=== PATIENT | male | born 1955 | race Caucasian/White ===

== ENCOUNTER 2017-02-08 08:51 | Inpatient (IN) | payer OTHER ==
[2017-01-27 08:54] VITALS: BMI 34.0
--- NOTE | 2017-01-27 09:19 | PAT Medication Instructions ---
Service Date Jan 27, 2017. Current Home Medication List Amlodipine (Norvasc), 2.5 MG PO QAM Hctz/Lisinopril (Lisinopril/Hctz 10/12.5 Mg), 1 TAB PO QAM Multivitamin (Multivitamin), 1 TAB PO QAM Omeprazole (Prilosec), 40 MG PO QAM Prednisolone Acetate (Ophth) (Prednisolone Acetate), 1 DROP OP QAM Medication Instructions For Your Scheduled Surgery - Hold the following medications the morning of surgery: Hctz/Lisinopril (Lisinopril/Hctz 10/12.5 Mg), 1 TAB PO QAM Multivitamin (Multivitamin), 1 TAB PO QAM - Take the following medications the morning of surgery with a sip of water OTHERWISE NOTHING TO EAT OR DRINK AFTER MIDNIGHT:: Amlodipine (Norvasc), 2.5 MG PO QAM Omeprazole (Prilosec), 40 MG PO QAM Prednisolone Acetate (Ophth) (Prednisolone Acetate), 1 DROP OP QAM If you have any questions please call us at [phone] or [phone] or [phone]
[2017-01-27 10:12] LABS: BASO % 0.3 %; BASO ABS # 0.02 K/uL (0-0.2); COMPLETE YES; EOS % 3.1 %; HEMATOCRIT 41.3 % (42-52); IG% 0.3 %; LYMPH % 34.1 %; LYMPH ABS # 2.22 K/uL (1.2-3.4); MEAN CELL VOLUME 89.6 fL (80-100); MEAN CORPUSCULAR HEMOGLOBIN 30.4 pg (25-34); MEAN CORPUSCULAR HGB CONC 33.9 g/dl (32-36); MEAN PLATELET VOLUME 10.8 fL (7.4-10.4); MONO % 9.5 %; NEUT % 52.7 %; PLATELET COUNT 225 K/uL (130-400); RED BLOOD COUNT 4.61 M/uL (4.7-6.1); WHITE BLOOD COUNT 6.51 K/uL (4.8-10.8)
--- NOTE | 2017-01-27 10:14 | DIAGNOSTIC IMAGING REPORT ---
CHEST PREADMISSION(PA/LAT) CLINICAL HISTORY: Preoperative chest COMPARISON STUDY: 02/16/2014 FINDINGS: The cardiac and mediastinal contours are normal. There is no evidence of focal pulmonary consolidation. There is no evidence of failure. No pleural effusions are visualized.[ IMPRESSION: No active disease in the chest. Electronically signed by: Daryn Merlos M.D. 01/27/2017 10:13 AM Dictated Date/Time: 01/27/2017 10:13 AM
[2017-01-27 10:15] LABS: URINE APPEARANCE CLEAR (CLEAR); URINE BILIRUBIN NEG (NEG); URINE COLOR DK YELLOW; URINE NITRITE NEG (NEG); URINE PH 6.5 (4.5-7.5); URINE SPECIFIC GRAVITY 1.023 (1.000-1.030); UROBILINOGEN NEG (NEG)
[2017-01-27 10:18] LABS: MANUAL MICROSCOPIC REQUIRED? NO; REVIEW REQ? NO
[2017-01-27 10:36] LABS: BUN/CREATININE RATIO 18.6 (10-20); CALCIUM 9.3 mg/dl (8.5-10.1); POTASSIUM 3.9 mmol/L (3.5-5.1)
[~2017-02-08] VITALS: Ht 177.8 cm; Wt 106.8 kg
[2017-02-08] VITALS (9 sets, daily range): BP systolic 115–146; BP diastolic 56–83; PULSE 58–91; TEMP 36.1–37.2; O2SAT 91–98; Ht 177.8 cm; Wt 106.8 kg
--- NOTE | 2017-02-08 07:23 | History & Physical Bridge Note ---
H&P Re-Evaluation Bridge Note: I have examined the patient, reviewed the History & Physical and in the interval since the performance of the History & Physical I have noted the following changes of clinical significance: No changes noted
[~2017-02-08 08:51] MED LIST: AMLO2.5T PO; CEFAZOLIN 2000 MG/60 ML D5W IV SCH; LACTATED RINGER'S 1000ML 1,000 ML IV SCH; LSN/10125 PO; MULT-506 PO; OMEP40CA PO; PRED1SUS17 OP
--- NOTE | 2017-02-08 10:10 | History and Physical ---
History & Physical Date Feb 08, 2017. Chief Complaint back and leg pain History of Present Illness The patient is a 61 year old male with complaints of Past Medical/Surgical History Medical Problems: (1) Benign hypertension (2) Hyperlipidemia Nec/Nos (3) Shoulder Surgery (4) Tobacco Use Disorder Additional History Hepatic Disease: No Endocrine Disorder: No Kidney Disease: No Hypertension: No Heart Disease: No Bleeding Tendencies: No Infectious Diseases: No Allergies Coded Allergies: Acetaminophen (Unverified Adverse Reaction, Unknown, IRRITABLE, 02/08/17) PER RECORDS Hydrocodone (Unverified Adverse Reaction, Unknown, IRRITABLE, 02/08/17) PER RECORDS Home Medications Scheduled Amlodipine (Norvasc), 2.5 MG PO QAM Hctz/Lisinopril (Lisinopril/Hctz 10/12.5 Mg), 1 TAB PO QAM Multivitamin (Multivitamin), 1 TAB PO QAM Omeprazole (Prilosec), 40 MG PO QAM Prednisolone Acetate (Ophth) (Prednisolone Acetate), 1 DROP OP QAM Physical Examination Skin: warm/dry, no rash Eyes: normal inspection, EOMI, sclerae normal ENT: normal ENT inspection, pharynx normal Head: normocephalic, atraumatic Neck: supple, no adenopathy, trachea midline Respiratory/Chest: lungs clear, normal breath sounds, no respiratory distress Cardiovascular: regular rate, rhythm, no edema, no murmur Abdomen / GI: normal bowel sounds, non tender Back: normal inspection Extremities: normal inspection, normal range of motion Neurologic/Psych: no motor/sensory deficits, alert, normal reflexes, oriented x 3 Diagnosis spondylolysis/stenosis Plan of Treatment decompression fusion L4-S1
[2017-02-08] MEDS ORDERED: MIDAZOLAM HCL 1 MG/ML 2ML VIAL ONE (10:30)
[2017-02-08] MEDS ORDERED: SODIUM CHLORIDE 0.9% PF 50 ML VIAL ONE (10:30)
[2017-02-08] MEDS ORDERED: BUPIVACAINE/EPINEPHRINE 0.5% MPF 1:200,000 30 ML VIAL ONE (10:30)
[2017-02-08] MEDS ORDERED: FENTANYL CITRATE INJ 50 MCG/1 ML 2 ML VIAL ONE ×3 (10:30→12:19)
[2017-02-08] MEDS ORDERED: BACITRACIN 50000 UNIT VIAL ONE (10:30)
[2017-02-08] MEDS ORDERED: HYDROmorphone INJ 2 MG/ML SYR/VIAL ONE ×2 (11:10→12:53)
[2017-02-08] MEDS ORDERED: PHENYLEPHRINE 100MCG/ML 5ML SYR IV PRN (11:15)
[2017-02-08] MEDS ORDERED: EpHEDrine SULFATE INJ 50 MG/ML AMP IV PRN (11:15)
[2017-02-08] MEDS ORDERED: LABETALOL HCL IV 5 MG/ML 20ML IV PRN (11:15)
[2017-02-08] MEDS ORDERED: MEPERIDINE HCL 25 MG/ML CARP IV PRN (11:15)
[2017-02-08] MEDS ORDERED: NALOXONE HCL 0.4 MG/1 ML VIAL/CARP IV PRN ×3 (11:15→13:00)
[2017-02-08] MEDS ORDERED: FLUMAZENIL 0.1 MG/1 ML 10 ML VIAL IV PRN (11:15)
[2017-02-08] MEDS ORDERED: HYDROmorphone INJ 2 MG/ML SYR/VIAL IV PRN (11:15)
[2017-02-08] MEDS ORDERED: ATROPINE SULFATE 0.1 MG/ML 5ML SYR IV PRN (11:15)
[2017-02-08] MEDS ORDERED: ONDANSETRON INJ 2 MG/ML 2 ML VIAL IV PRN ×2 (11:15→13:00)
[2017-02-08] MEDS ORDERED: EpHEDrine SULFATE 50MG/5ML SYR ONE ×2 (11:45→12:29)
[2017-02-08] MEDS ORDERED: PROPOFOL IV EMULSION 10 MG/ML 20 ML VIAL IV ONE (12:29)
[2017-02-08] MEDS ORDERED: DEXAMETHASONE SOD INJ 4 MG/ML VIAL ONE (12:29)
[2017-02-08] MEDS ORDERED: LIDOCAINE HCL 2% 2 ML VIAL (20MG/ML) ONE (12:29)
[2017-02-08] MEDS ORDERED: ROCURONIUM BROMIDE 10 MG/ML 5 ML VIAL ONE (12:29)
[2017-02-08] MEDS ORDERED: FLOSEAL HEMOSTATIC MATRIX 10ML TOP ONE (12:45)
[2017-02-08] MEDS ORDERED: SODIUM CHLORIDE 0.9% 1000ML 1,000 ML IV SCH (12:49)
--- NOTE | 2017-02-08 12:49 | [facility] Post Operative Brief Note ---
Immediate Operative Summary Operative Date Feb 08, 2017. Pre-Operative Diagnosis Spondylolysis/stenosis Post-Operative Diagnosis Same as preoperative diagnosis Procedure(s) Performed L4-L5, L5-S1 Lumbar Decompression and posterior spinal fusion; instrumentation with use of bone morphogenetic protein. Interbody fusion with application of interbody cage at L5-S1. Surgeon Dr Anaya Buyer Broker Surgeon(s) Stacie Samaniego PA-C Estimated Blood Loss 150 Findings spondy/stenosis Specimens None per surgeon
[2017-02-08] MEDS ORDERED: GLYCOPYRROLATE INJ 0.2 MG/ML VIAL ONE (12:53)
[2017-02-08] MEDS ORDERED: ONDANSETRON INJ 2 MG/ML 2 ML VIAL ONE (12:53)
[2017-02-08] MEDS ORDERED: NEOSTIGMINE METHYLSULFATE 1 MG/ML 10ML VIAL ONE (12:53)
--- NOTE | 2017-02-08 12:54 | DIAGNOSTIC IMAGING REPORT ---
LUMBAR SPINE, INTRAOPERATIVE FLUOROSCOPY HISTORY: L4-S1 decompression and fusion. FLUOROSCOPY TIME: 17 seconds. FINDINGS: Intraoperative fluoroscopy was provided for the lumbar spine. 2 fluoroscopic spot images were obtained. Posterior decompression fusion from L4 through S1 with pedicle screws and rods. The hardware appears intact. IMPRESSION: Fluoroscopy provided for a L4-S1 posterior decompression and fusion. Electronically signed by: Hong Alfonso M.D. 02/08/2017 12:53 PM Dictated Date/Time: 02/08/2017 12:52 PM
[2017-02-08] MEDS ORDERED: HYDROmorphone HCL 0.5MG/ML 50 ML CASSETTE IV PRN (13:00)
[2017-02-08] MEDS ORDERED: hydrOXYzine HCL 25 MG TAB PO PRN (13:00)
[2017-02-08] MEDS ORDERED: DO NOT ADMINISTER PNEUMOCOCCAL VACCINE PRN ×2 (13:00)
[2017-02-08] MEDS ORDERED: BISACODYL 10 MG SUPP PR PRN (13:00)
[2017-02-08] MEDS ORDERED: FAMOTIDINE 20 MG TAB PO PRN (13:00)
[2017-02-08] MEDS ORDERED: LORAZEPAM 0.5 MG TAB PO PRN (13:00)
[2017-02-08] MEDS ORDERED: LORAZEPAM INJ 0.5 MG in SYRINGE 0 ML IV PRN (13:00)
[2017-02-08] MEDS ORDERED: METOCLOPRAMIDE HCL INJ 5 MG/ML 2 ML VIAL IV PRN (13:00)
[2017-02-08] MEDS ORDERED: ALUMINUM/MAGNESIUM SUSP 30 ML UDC PO PRN (13:00)
[2017-02-08] MEDS ORDERED: MAGNESIUM HYDROXIDE SUSP 30 ML UDC PO PRN (13:00)
[2017-02-08] MEDS ORDERED: DO NOT ADMINISTER FLU VACCINE PRN ×3 (13:00)
[2017-02-08] MEDS ORDERED: SOD PHOSPHATE/SOD BIPHOSPHATE ENEMA 132 ML BTL PR PRN (13:00)
[2017-02-08] MEDS ORDERED: HYDROmorphone HCL 0.5MG/ML 50 ML CASSETTE ONE (13:12)
[2017-02-08] MEDS: FENTANYL CITRATE INJ 50 MCG/1 ML 2 ML VIAL IV PRN ×4 (13:15→13:30)
--- NOTE | 2017-02-08 13:48 | Anesthesiology Progress Note ---
Anesthesia Post Op Note Date & Time Feb 08, 2017 at 13:48 Vital Signs Pain Intensity: 4 Vital Signs Past 12 Hours Date Time Temp Pulse Resp B/P Pulse Ox O2 Delivery O2 Flow Rate FiO2 02/08/17 13:40 36.6 67 14 127/75 100 Nasal Cannula 3 02/08/17 13:30 85 14 123/71 100 Mask 5 02/08/17 13:20 65 16 129/70 100 Mask 10 02/08/17 13:10 36.7 81 16 119/66 97 Mask 10 02/08/17 09:05 36.5 58 20 144/83 96 Room Air Notes Mental Status: alert / awake / arousable, participated in evaluation Pt Amnestic to Procedure: Yes Nausea / Vomiting: adequately controlled Pain: adequately controlled Airway Patency, RR, SpO2: stable & adequate BP & HR: stable & adequate Hydration State: stable & adequate Anesthetic Complications: no major complications apparent
[2017-02-08] MEDS: LACTATED RINGER'S 1000ML 1,000 ML IV SCH ×2 (14:00→19:23)
[2017-02-08] MEDS: DEXAMETHASONE INJ 6 MG in SYRINGE 0 ML IV SCH ×2 (16:04→23:36)
[2017-02-08] MEDS: CEFAZOLIN IV 2,000 MG in DEXTROSE 5% 50ML 50 ML IV SCH (18:27)
[2017-02-08] MEDS: DOCUSATE SODIUM/SENNA 50/8.6MG TAB PO SCH (20:38)
[2017-02-09] MEDS: CEFAZOLIN IV 2,000 MG in DEXTROSE 5% 50ML 50 ML IV SCH (01:55)
[2017-02-09] MEDS: LACTATED RINGER'S 1000ML 1,000 ML IV SCH (01:56)
[2017-02-09 03:23] VITALS: BP 118/65; PULSE 71; TEMP 36.8; O2SAT 94
[2017-02-09] MEDS ORDERED: DC PCA SCH (06:00)
[2017-02-09] MEDS ORDERED: PROMETHAZINE HCL INJ 12.5 MG in SODIUM CHLORIDE 0.9% 50ML 50 ML IV PRN (06:00)
[2017-02-09] MEDS ORDERED: HYDROmorphone INJ 1 MG/ML SYR IV PRN (06:00)
[2017-02-09 06:17] LABS: COMPLETE YES; HEMATOCRIT 34.7 % (42-52); IG% 0.2 %; LYMPH % 6.9 %; LYMPH ABS # 1.01 K/uL (1.2-3.4); MEAN CELL VOLUME 87.6 fL (80-100); MEAN CORPUSCULAR HEMOGLOBIN 29.8 pg (25-34); MEAN PLATELET VOLUME 10.7 fL (7.4-10.4); MONO % 3.9 %; PLATELET COUNT 199 K/uL (130-400); RED BLOOD COUNT 3.96 M/uL (4.7-6.1); WHITE BLOOD COUNT 14.68 K/uL (4.8-10.8)
[2017-02-09] MEDS ORDERED: NURSING DECISION MEDICATION ORDER SCH (06:45)
[2017-02-09 06:53] LABS: BUN/CREATININE RATIO 13.3 (10-20); CALCIUM 8.7 mg/dl (8.5-10.1); CREATININE 1.2 mg/dl (0.60-1.40); POTASSIUM 4.3 mmol/L (3.5-5.1)
[2017-02-09] MEDS: DEXAMETHASONE INJ 6 MG in SYRINGE 0 ML IV SCH (07:38)
[2017-02-09] MEDS: OXYCODONE HCL IR 5 MG TAB (IMMEDIATE RELEASE) PO PRN ×2 (07:38→11:52)
[2017-02-09 07:42] VITALS: BP 119/61; PULSE 79; TEMP 37.1; O2SAT 99
--- NOTE | 2017-02-09 08:40 | PROGRESS NOTE ---
DATE: 02/09/2017 Postop day 1. Back pain controlled. Leg pain improved. Vital signs stable. T max 37.1. LIONEL drained 120 mL. Hematocrit this a.m. is 34.7. On exam, the patient is in chair at bedside. Has good strength to testing. Appears comfortable. ASSESSMENT: Status post lumbar decompression and fusion. PLAN: At this time, we will initiate physical therapy, advance his bowel regimen, hopefully anticipate home this Monday or Monday.
[2017-02-09 09:41] VITALS: BP 119/61
[2017-02-09] MEDS: KETOROLAC TROMETHAMINE 30 MG/ML VIAL IV PRN ×2 (09:51→18:41)
[2017-02-09] MEDS: LISINOPRIL/HCTZ 10/12.5MG TAB PO SCH (09:52)
[2017-02-09] MEDS: PANTOprazole SOD 40 MG TAB PO SCH (09:52)
[2017-02-09] MEDS: AMLODIPINE BESYLATE 5 MG TAB PO SCH (09:53)
[2017-02-09] MEDS: PrednisoLONE ACET 1% OP SUSP 5 ML BTL OP SCH (09:53)
--- NOTE | 2017-02-09 10:35 | Anesthesiology Progress Note ---
Anesthesia Post Op Note Date & Time Feb 09, 2017 at 10:34 Vital Signs Vital Signs Past 12 Hours Date Time Temp Pulse Resp B/P Pulse Ox O2 Delivery O2 Flow Rate FiO2 02/09/17 07:50 Room Air CPAP 02/09/17 07:42 37.1 79 16 119/61 99 Room Air 02/09/17 03:23 36.8 71 16 118/65 94 Room Air 02/08/17 23:36 37.0 80 16 122/66 92 Room Air Notes Mental Status: alert / awake / arousable, participated in evaluation Pt Amnestic to Procedure: Yes Nausea / Vomiting: adequately controlled Pain: adequately controlled Airway Patency, RR, SpO2: stable & adequate BP & HR: stable & adequate Hydration State: stable & adequate Anesthetic Complications: no major complications apparent
[2017-02-09 15:19] VITALS: BP 130/71; PULSE 61; TEMP 36.8; O2SAT 93
[2017-02-09] MEDS: DOCUSATE SODIUM/SENNA 50/8.6MG TAB PO SCH (21:06)
[2017-02-09 23:30] VITALS: BP 131/70; PULSE 70; TEMP 36.5; O2SAT 96
[2017-02-10] MEDS: POLYETHYLENE (MIRALAX) 17 GM PACK PO SCH ×3 (06:04→17:52)
[2017-02-10] MEDS: OXYCODONE HCL IR 5 MG TAB (IMMEDIATE RELEASE) PO PRN ×2 (07:14→19:21)
[2017-02-10 07:36] VITALS: BP 134/80; PULSE 62; TEMP 36.7; O2SAT 95
[2017-02-10 08:43] VITALS: O2SAT 95
[2017-02-10] MEDS: KETOROLAC TROMETHAMINE 30 MG/ML VIAL IV PRN (08:51)
[2017-02-10] MEDS: PrednisoLONE ACET 1% OP SUSP 5 ML BTL OP SCH (08:54)
[2017-02-10] MEDS: AMLODIPINE BESYLATE 5 MG TAB PO SCH (08:55)
[2017-02-10] MEDS: LISINOPRIL/HCTZ 10/12.5MG TAB PO SCH (08:55)
[2017-02-10] MEDS: PANTOprazole SOD 40 MG TAB PO SCH (08:55)
[2017-02-10] MEDS ORDERED: RXC5 PO (10:38)
--- NOTE | 2017-02-10 10:39 | Discharge Instructions ---
Discharge Instructions Date of Service Feb 10, 2017. Admission Reason for Admission: Lumbar Spinal Stenosis Discharge Discharge Diagnosis / Problem: lumbar stenosis Discharge Goals Goal(s): Improve function Activity Recommendations Activity Limitations: per Instructions/Follow-up section . Instructions / Follow-Up Instructions / Follow-Up ACTIVITY RECOMMENDATIONS: SELF CARE INSTRUCTIONS AFTER THORACIC/LUMBAR FUSIONS 1. You may walk to your tolerance. It is good exercise for your legs and back. Expect some back and intermittent leg aches and pains. 2. You may perform "counter-top" level activities (make a sandwich, clarice with a project, etc.). 3. No bending or lifting of more than 10 pounds or back twisting of any nature (roll like a log when turning in bed). 4. You may ride in a car for 20-30 minutes at a time. No driving until after your first visit with your doctor. 5. Frequent changes of position and restricting sitting to 30 minutes at a time will help limit the amount of back spasms and stiffness you may experience. 6. You may discontinue the use of ambulatory aids (cane, crutches, etc.) once your strength and confidence allow. 7. You may divine healer the shower and let water strike your incision when you arrive home at least once daily. Do not take a tub bath, sit in a hot tub or go into a swimming pool until after your first recheck in the office. SPECIAL CARE INSTRUCTIONS: VERY IMPORTANT TO READ AND REVIEW A. Your surgical incision has been closed with a cosmetic suture under the skin that will dissolve in about 6 weeks. In 14 days, you can use a pair of clean scissors and cut the suture that is left outside of the skin at the ends of your incision. 1. The small skin tapes can be removed 7 days after surgery if they have not fallen off by that point. 2. You may keep the wound open to air as much as possible to promote healing after post-op day number 5 unless told otherwise by your doctor. 3. If you think the wound looks like it is becoming infected (redness or worsening drainage) and/or you are experiencing fever, chill or worsening back pain and muscle spasms, contact the office so that we may evaluate you as soon as possible. B. Complications are uncommon, but please contact us if you have any signs or symptoms of: 1. wound infection (fever higher than 102.5 degrees F, redness, separation of wound, drainage, or increasing pain from the incision) 2. blood clots in legs (pain, swelling, redness and warmth in legs) 3. urinary tract infection (fever higher than 102.5 degrees F, burning upon urination or increased frequency of urination) 4. nerve problems (inability to walk on your toes or heels, numbness, loss of bowel or bladder control) 5. any other symptoms that concern you C. Please call the office at if you have any concerns or questions about your operation or recovery. D. No smoking! Smoking drastically decreases the chance of a solid fusion. E. Do not take any anti-inflammatory medications (Indocin, Advil, Motrin, Aspirin, Naprosyn, etc.) as these may inhibit the chance of a solid fusion. Tylenol is okay to take for pain. MANAGING PAIN AFTER SPINAL SURGERY 1. Narcotic medication is intended for short-term use and will be provided for surgical pain. Surgical pain usually lasts for a period of 4-6 weeks. Narcotic medication includes Percocet, Vicodin, Darvocet, Tylenol #3 or Lortab. 2. Longer-term pain is more appropriately treated with non-narcotic medication such as Tylenol ES. 3. Muscle spasm is not appropriately treated with narcotics. Muscle relaxers such as Soma, Flexeril or Skelaxin can be used along with Tylenol ES. 4. Remember that we all live with some "aches and pains". This is not unusual or uncommon after an injury or as we get older. a. Back pain is expected and may include muscle spasms for 4 to 6 weeks after surgery. The pain should gradually improve. If the pain worsens for no apparent reason, please contact the office. b. Intermittent leg pain may also be experienced and should not be concerned about unless it worsens for no apparent reason. If so, please contact the office. 5. We will provide appropriate medication within the normal guidelines of their prescribed use. We will also be very cautious and aware of potential abuse and extended duration of patients' medication needs. a. Pain medications are for your comfort and to assist with sleep and rest so that the tissue can heal. They are not provided in order to return to normal activity and should not be used through the day. To do so or worsening pain at night can result from ongoing tissue damage and development of tolerance to the prescribed medicine. 6. Please allow 2-3 days to process refills. Prescriptions will not be mailed but must be picked up at the office. FOLLOW UP VISIT: Keep your scheduled follow-up appointment. Any questions, please call the office at . Current Hospital Diet Patient's current hospital diet: Regular Diet Discharge Diet Recommended Diet: Regular Diet Procedures Procedures Performed: L4-L5, L5-S1 Lumbar Decompression and posterior spinal fusion; instrumentation with use of bone morphogenetic protein. Interbody fusion with application of interbody cage at L5-S1. Pending Studies Studies pending at discharge: no Medical Emergencies . Who to Call and When: Medical Emergencies: If at any time you feel your situation is an emergency, please call 911 immediately. . Non-Emergent Contact Non-Emergency issues call your: Primary Care Provider . "Provider Documentation" section prepared by Yoni Anaya. VTE Core Measure Inpt VTE Proph given/why not?: Elena Moses, [facility]
[2017-02-10 11:29] VITALS: BP 130/68; PULSE 52; TEMP 36.7; O2SAT 95
--- NOTE | 2017-02-10 14:19 | PROGRESS NOTE ---
DATE: 02/10/2017 Postop day #2. Back pain controlled. Leg pain improved. Vital signs stable. T-max 36.7. LIONEL drained 140 mL today. Bowel movement this morning. PHYSICAL EXAMINATION: VITAL SIGNS: Stable. He is comfortable, sitting in bed, has excellent strength to testing. ASSESSMENT: Status post lumbar decompression and fusion. PLAN: At this time, we will maintain the LIONEL drain today. Anticipate home tomorrow.
[2017-02-10 15:33] VITALS: BP 123/62; PULSE 57; TEMP 36.7; O2SAT 97
[2017-02-10] MEDS: DOCUSATE SODIUM/SENNA 50/8.6MG TAB PO SCH (20:43)
[2017-02-10 23:37] VITALS: BP 117/67; PULSE 58; TEMP 37.1; O2SAT 96
[2017-02-11] MEDS: POLYETHYLENE (MIRALAX) 17 GM PACK PO SCH ×2 (00:22→05:46)
[2017-02-11] MEDS: OXYCODONE HCL IR 5 MG TAB (IMMEDIATE RELEASE) PO PRN ×3 (00:22→10:26)
[2017-02-11 07:26] VITALS: BP 102/55; PULSE 56; TEMP 36.7; O2SAT 95
[2017-02-11] MEDS: AMLODIPINE BESYLATE 5 MG TAB PO SCH (08:30)
[2017-02-11] MEDS: PrednisoLONE ACET 1% OP SUSP 5 ML BTL OP SCH (08:30)
[2017-02-11] MEDS: PANTOprazole SOD 40 MG TAB PO SCH (08:31)
[2017-02-11] MEDS: LISINOPRIL/HCTZ 10/12.5MG TAB PO SCH (08:31)
--- NOTE | 2017-02-11 10:28 | DISCHARGE SUMMARY ---
DATE OF DISCHARGE: 02/11/2017. PRINCIPAL DIAGNOSIS: Spinal stenosis. HOSPITAL COURSE FOLLOWS: On February 08 the patient underwent lumbar decompression and fusion, tolerated this well and taken to the orthopedic floor postoperatively. Postop day #1, he was up and ambulatory, progressed to postop day #2. Postop day #3 pain well controlled. LIONEL drain decreased appropriately. Subsequently discharged home. Discharge orders and instructions can be found on the chart for further review.
[2017-02-11 11:59] VITALS: BP 102/55; PULSE 56; TEMP 36.7; O2SAT 95
--- NOTE | 2017-03-03 09:08 | OPERATIVE REPORT ---
DATE OF OPERATION: 02/08/2017 PREOPERATIVE DIAGNOSIS: Spinal stenosis. POSTOPERATIVE DIAGNOSIS: Same. PROCEDURE PERFORMED: 1. Lumbar decompression, medial facetectomy and foraminotomy L4-L5, L5-S1. 2. Posterior spinal fusion L4-L5, L5-S1. 3. Placement of posterior segmental instrumentation using Orthros rods and screws L4-L5, L5-S1. 4. Interbody fusion L5-S1. 5. Placement of PEEK cage L5-S1. 6. Placement of locally harvested morcellized autograft in posterior gutters. 7. Placement of Infuse collagen sponge combined with Mastergraft in posterior gutters and Marissa bone grafting in interbody space. SURGEON: Dr. Yoni Anaya. ENTRY LEVEL ASSISTANT MANAGER: EMELIA Williamson. Due to the complex nature of the procedure, the entire surgery was performed with the fleet administrative assistant of EMELIA Williamson. The photographer's assistant, under direct supervision, was involved in the actual performance of all aspects of the surgical procedure including hemostasis, tissue retraction and incision, instrument management, patient positioning, and wound closure. ANESTHESIA: General. DISPOSITION: The patient awakened and taken to PACU in stable condition. HISTORY OF PATIENT'S PROBLEMS: This is a 61-year-old male well known to me, that presents with the above-mentioned diagnosis. After failing an extensive course of nonoperative care, elected to undergo the above-mentioned procedure. Risks, benefits, pros, cons, and alternatives were outlined in detail preoperatively. DESCRIPTION OF PROCEDURE: The patient was met with preoperatively. The case was discussed and all questions were addressed. At that point, the patient was taken back to the operative suite, and after undergoing successful general intubation by the department of anesthesia, was placed in prone position on Karson table atop Tristen frame. All bony prominences were well padded and the eyes were inspected to ensure there was no external pressure placed upon them. At this point, the lumbar spine was prepped and draped in normal sterile fashion. Sharp dissection with the assistance of Bovie cautery performed down to and exposing the lamina and transverse processes of L4, L5 and sacral ala bilaterally. Obvious pars defect and spondylolisthesis at L5-S1 appreciated. A complete laminectomy of L5 and L4 performed addressing significant stenosis. Pedicle screws were then placed in L4, L5 and S1 levels bilaterally with assistance of fluoroscopy and appropriately sized adan provisionally placed. Through a transforaminal approach, a complete discectomy was performed, endplates curetted to subcortical bleeding bone, and a PEEK cage filled with Marissa bone grafting tapped into position. The rods were then compressed, locked into final position bilaterally, and transverse processes of L4, L5 and sacral ala burred to subcortical bleeding bone. Infuse collagen sponge combined with Mastergraft and locally harvested morcellized autograft was placed in the posterior gutters. A 7 flat LIONEL drain was inserted. Incision was closed with 1-0 Vicryl in the fascia, 2-0 Vicryl subcutaneously, 4-0 Monocryl for final skin closure. Steri-Strips and sterile dressing placed. The patient was awakened and taken to PACU in stable condition. I attest to the content of the Intraoperative Record and any orders documented therein. Any exceptio ns are noted below.
== END 2017-02-11 13:41 | disposition home health service (06) | DRG 460 ==
LOC: ENRESERVDT → ENRESERVTM → C.ACU 08:51 → C.3E 09:30
PROVIDERS: ADMIT Orthopaedic Surgery Orthopaedic Surgery of the Spine; ATTEND Orthopaedic Surgery Orthopaedic Surgery of the Spine
PROC: 0SG30AJ Fusion of Lumbosacral Joint with Interbody Fusion Device, Posterior Approach, Anterior Column, Open Approach (ICD-10-PCS; principal; 2017-02-08 10:45)
PROC: 0SG3071 Fusion of Lumbosacral Joint with Autologous Tissue Substitute, Posterior Approach, Posterior Column, Open Approach (ICD-10-PCS; principal; 2017-02-08 10:45)
PROC: 0SG00AJ Fusion of Lumbar Vertebral Joint with Interbody Fusion Device, Posterior Approach, Anterior Column, Open Approach (ICD-10-PCS; principal; 2017-02-08 10:45)
PROC: 0ST20ZZ Resection of Lumbar Vertebral Disc, Open Approach (ICD-10-PCS; principal; 2017-02-08 10:45)
PROC: 0SG0071 Fusion of Lumbar Vertebral Joint with Autologous Tissue Substitute, Posterior Approach, Posterior Column, Open Approach (ICD-10-PCS; principal; 2017-02-08 10:45)
PROC: 0ST40ZZ Resection of Lumbosacral Disc, Open Approach (ICD-10-PCS; principal; 2017-02-08 10:45)
PROC: 3E0V0GB Introduction of Recombinant Bone Morphogenetic Protein into Bones, Open Approach (ICD-10-PCS; principal; 2017-02-08 10:45)
DX: M48.07 Spinal stenosis, lumbosacral region (principal); M43.07 Spondylolysis, lumbosacral region; M99.73 Connective tissue and disc stenosis of intervertebral foramina of lumbar region; I10 Essential (primary) hypertension; E78.5 Hyperlipidemia, unspecified; F17.200 Nicotine dependence, unspecified, uncomplicated; Z79.899 Other long term (current) drug therapy

== ENCOUNTER → 2017-06-14 | Outpatient (CLI) | payer OTHER ==
[~2017-06-14] MED LIST changes: -CEFAZOLIN 2000 MG/60 ML D5W IV SCH; -LACTATED RINGER'S 1000ML 1,000 ML IV SCH; +RXC5 PO
[2017-06-14 17:04] LABS: BASO % 0.4 %; BASO ABS # 0.02 K/uL (0-0.2); COMPLETE YES; EOS % 2.3 %; HEMATOCRIT 41.5 % (42-52); IG% 0.2 %; LYMPH % 32.8 %; LYMPH ABS # 1.71 K/uL (1.2-3.4); MEAN CELL VOLUME 88.5 fL (80-100); MEAN CORPUSCULAR HEMOGLOBIN 29.9 pg (25-34); MEAN CORPUSCULAR HGB CONC 33.7 g/dl (32-36); MEAN PLATELET VOLUME 10.9 fL (7.4-10.4); MONO % 9.4 %; NEUT % 54.9 %; PLATELET COUNT 230 K/uL (130-400); RED BLOOD COUNT 4.69 M/uL (4.7-6.1); WHITE BLOOD COUNT 5.22 K/uL (4.8-10.8)
[2017-06-14 17:28] LABS: ALT/SGPT 29 U/L (12-78); AST/SGOT 15 U/L (15-37); BLOOD UREA NITROGEN 18 mg/dl (7-18); BUN/CREATININE RATIO 18.5 (10-20); CALCIUM 9.7 mg/dl (8.5-10.1); CARBON DIOXIDE 33 mmol/L (21-32); CHLORIDE 105 mmol/L (98-107); CREATININE 0.99 mg/dl (0.60-1.40); GLUCOSE 91 mg/dl (70-99); POTASSIUM 4.4 mmol/L (3.5-5.1); SODIUM 142 mmol/L (136-145)
[2017-06-14 17:31] LABS: ALB/GLOB RATIO 1.2 (0.9-2); ALKALINE PHOSPHATASE 67 U/L (45-117)
[2017-06-14 18:46] LABS: LYME DISEASE AB IGM NEG (NEG)
[2017-06-14 18:49] LABS: LYME DISEASE AB IGG NEG (NEG)
== END | disposition home or self-care (01) ==
LOC: C.LABBC 12:51
PROVIDERS: ATTEND Physician Assistant
DX: H53.8 Other visual disturbances (principal)

== ENCOUNTER → 2017-06-23 | Outpatient (CLI) | payer OTHER ==
--- NOTE | 2017-06-23 09:33 | DIAGNOSTIC IMAGING REPORT ---
HEAD WITHOUT CONTRAST (CT) CLINICAL HISTORY: 61 years-old Male presenting with BLURRED Vision, dizziness. TECHNIQUE: Multidetector CT imaging of the head was performed without the use of intravenous contrast. IV contrast: None. A dose lowering technique was used consistent with the principles of ALARA (as low as reasonably achievable). COMPARISON: 12/10/2012. CT DOSE (mGy.cm): The estimated cumulative dose is 669.45 mGycm. FINDINGS: Marking Devices Assembler topogram: Unremarkable. Ventricles and sulci normal in size. Brain parenchyma normal in appearance with preserved moore-white differentiation. No mass effect or midline shift. No hemorrhage or acute territorial infarct. No extra-axial fluid collection. Paranasal sinuses and mastoid air cells clear. Calvarium intact. IMPRESSION: 1. No acute intracranial pathology. Electronically signed by: Michael Schneider M.D. 06/23/2017 9:32 AM Dictated Date/Time: 06/23/2017 9:30 AM
== END | disposition home or self-care (01) ==
LOC: C.CTS 09:09
PROVIDERS: ATTEND Physician Assistant
DX: R42 Dizziness and giddiness (principal)

== ENCOUNTER → 2018-02-20 | Outpatient (CLI) | payer OTHER ==
--- NOTE | 2018-02-20 15:43 | DIAGNOSTIC IMAGING REPORT ---
MRI OF THE LEFT KNEE CLINICAL HISTORY: Left knee pain. COMPARISON STUDY: Radiographs of left knee dated 03/11/2014. TECHNIQUE: MRI of the left knee was performed utilizing proton density, T1, and T2-weighted sequences in the axial, sagittal, coronal planes. IV contrast was not administered for this examination. Note that interpretation is suboptimal without current plain film correlate. FINDINGS: Menisci: There is a complex oblique tear involving the body and posterior horn of the medial meniscus. The meniscus is medially extruded. No flipped fragment is identified. The lateral meniscus is intact. Ligaments: The anterior and posterior cruciate ligaments are intact. The medial and lateral collateral ligaments are within normal limits. Extensor mechanism: The extensor mechanism is intact. Hoffa's fat pad is normal in appearance. Articular cartilage and bone: There is less than 50% fissuring of the articular cartilage at the patellar apex. There is diffuse thinning of the articular cartilage in the medial compartment with small foci of greater than 50% fissuring along the weightbearing surface. Reactive marrow edema seen in the medial tibial plateau. Only mild cartilaginous thinning is seen in the lateral compartment. There is no MRI evidence of fracture. Tiny marginal osteophytes are noted. Joint effusion: There is a moderate joint effusion. Soft tissues: The musculature surrounding the knee joint is normal in bulk and signal intensity. IMPRESSION: 1. There is complex tearing involving the body and posterior horn of the medial meniscus which is medially extruded. 2. The cruciate ligaments, the lateral meniscus, and the collateral ligaments appear intact. 3. Mild arthritic change as above, greatest in the medial compartment where there is reactive marrow edema in the medial tibial plateau. 4. Moderate joint effusion. Electronically signed by: Ozzie Ayala M.D. 02/20/2018 3:42 PM Dictated Date/Time: 02/20/2018 3:35 PM
== END | disposition home or self-care (01) ==
LOC: C.MRIBC 14:19
PROVIDERS: ATTEND Internal Medicine
DX: M70.50 Other bursitis of knee, unspecified knee (principal); S83.232A Complex tear of medial meniscus, current injury, left knee, initial encounter; X58.XXXA Exposure to other specified factors, initial encounter; M25.462 Effusion, left knee

== ENCOUNTER 2019-12-01 16:05 | Observation (INO) ==
--- NOTE | 2019-12-01 16:29 | Emergency Department Note ---
Entered by Marco Ken acting as a scribe for Teddy Humphries MD History of Present Illness General Chief complaint: Chest Pain Stated complaint: CHEST PAIN Time Seen by Provider: 12/01/19 16:10 Source: patient Limitations: no limitations History of Present Illness Onset (ago): hour(s) (hour) Location: chest Pain Consistency: + intermittent Quality: + sharp Relieved By: + medication (nitro) and + rest Exacerbated By: + movement Associated symptoms: + denies other symptoms (trauma), + headaches, + nausea/vomiting (nausea) and + other (neck pain, left arm numbness) Treatments prior to arrival: other (nitro) The patient is a 64 year old male who presents to the Emergency Room with complaints of intermittent chest pain starting an hour ago. He states he was sitting on the couch when he bent over to tie his shoe laces. He states when he bent over he started to get a sharp pain in his chest. He notes his pain is worse with movement. He states he started to get numbness in his left arm first and then got pain in his neck. He states he then got a headache. He notes he received Nitro by EMS and states that relieved some of his chest pain but worsened his headache. He states his chest pain is relieved by rest. He states he has a headache right now and his neck is sore. He states he is starting to feel nauseous. He states he sees Dr. Lou, cardiology, for his aortic root dilation. The patient denies trauma, injury, and taking blood thinners. He states he has been under a lot of stress from taking care of his for the pa st couple months. He states he had back surgery before and his lower back has been bothering him. Home Medications Home Medications Medication Instructions Recorded Confirmed Type lisinopril 10 1 tab PO DAILY #90 tab 06/14/19 12/01/19 Rx mg-hydrochlorothiazide 12.5 mg tablet amlodipine 2.5 mg tablet 2.5 mg PO QPM #30 tab 09/13/19 12/01/19 History atorvastatin 10 mg tablet 10 mg PO DAILY tab 09/13/19 12/01/19 History clonazepam 0.5 mg tablet 0.5 mg PO QPM PRN tab 09/13/19 12/01/19 History multivitamin 1 tab PO DAILY 09/13/19 12/01/19 History benzonatate 200 mg capsule 200 mg PO TID PRN #30 cap 09/24/19 12/01/19 Rx fluticasone propionate 50 1 sprays INTNAS UD 10/08/19 12/01/19 History mcg/actuation nasal spray,suspension escitalopram oxalate 20 mg tablet 20 mg PO DAILY #90 tab 10/16/19 12/01/19 Rx bupropion HCl 150 mg tablet,12 hr 150 mg PO BID #180 ea 10/29/19 12/01/19 Rx sustained-release Allergies Allergy/AdvReac Type Severity Reaction Status Date / Time acetaminophen AdvReac Unknown IRRITABLE Verified 12/01/19 17:08 hydrocodone AdvReac Unknown IRRITABLE Verified 12/01/19 17:08 Past Med/Surg History Medical History Anxiety Aortic root dilation (Chronic) Depression HTN (hypertension) (Chronic) Hyperlipidemia (Chronic) Moderate obstructive sleep apnea (Chronic) PTSD (post-traumatic stress disorder) Reactive depression (situational) (Chronic) Smokeless tobacco use (Chronic) Spinal stenosis (Chronic) Surgical History History of back surgery Family History (Updated 12/01/19 @ 19:04 by Rissa Parra DO) Mother Myocardial infarction Brother Myocardial infarction Social History (Updated 12/01/19 @ 19:04 by Rissa Parra DO) Preferred Language: Marshallese Communication Ability: Effective Visual Impairment: No Limitations Hearing Ability: Use of Hearing Aid Latent Print Examiner Required: No Beliefs That Will Affect Care: None marital status: Current Living Situation: Spouse current occupational status: retired Feels Safe at Home: Yes Smoking Status: Former smoker Tobacco Type: smokeless tobacco ; Second Hand Exposure: No ; Hx Alcohol Use: Yes Alcohol type: beer Alcohol Intake Frequency: Holidays/Special Occasions Alcohol Intake Frequency Comment: once every 1-2 weeks Hx Substance Use: No Childhood Exposure to Second-Hand Smoke: No Dental Care, Regularly: Yes Physical Activity Frequency: Daily Seatbelt Use: always Sunscreen Use: No Review of Systems See HPI for pertinent positives & negatives. and A total of 10 systems reviewed and were otherwise negative Physical Exam Vital Signs Vital Signs - 24 hr 12/01/19 16:21 12/01/19 16:27 12/01/19 16:30 Temperature 36.8 C Temperature Source Oral Pulse Rate 62 68 Pulse Rate from SpO2 Sensor 66 Respiratory Rate 18 21 Blood Pressure 102/73 167/99 H Blood Pressure Mean 82 116 Pulse Oximetry 98 98 99 Sepsis Recent Fever Within 48 Hours No Sepsis New/Unexplained Change in Mental Status No Sepsis Action Taken by Nursing No Action Required 12/01/19 16:40 12/01/19 16:59 12/01/19 17:00 Temperature Temperature Source Pulse Rate 59 L 61 Pulse Rate from SpO2 Sensor 58 L 62 Respiratory Rate 11 L 13 Blood Pressure 178/164 H 140/87 142/86 H Blood Pressure Mean 173 102 108 Pulse Oximetry 96 98 Sepsis Recent Fever Within 48 Hours Sepsis New/Unexplained Change in Mental Status Sepsis Action Taken by Nursing 12/01/19 17:04 12/01/19 17:15 12/01/19 17:25 Temperature Temperature Source Pulse Rate 61 63 56 L Pulse Rate from SpO2 Sensor 63 61 57 L Respiratory Rate 19 17 17 Blood Pressure 129/87 131/80 163/89 H Blood Pressure Mean 108 93 109 Pulse Oximetry 97 99 97 Sepsis Recent Fever Within 48 Hours Sepsis New/Unexplained Change in Mental Status Sepsis Action Taken by Nursing 12/01/19 17:30 12/01/19 17:35 12/01/19 17:40 Temperature Temperature Source Pulse Rate 55 L 57 L 60 Pulse Rate from SpO2 Sensor 57 L 57 L 61 Respiratory Rate 10 L 16 13 Blood Pressure 161/83 H 165/78 H 151/78 H Blood Pressure Mean 111 92 103 Pulse Oximetry 91 91 93 Sepsis Recent Fever Within 48 Hours Sepsis New/Unexplained Change in Mental Status Sepsis Action Taken by Nursing 12/01/19 17:45 12/01/19 17:50 12/01/19 17:55 Temperature Temperature Source Pulse Rate 62 Pulse Rate from SpO2 Sensor 63 63 60 Respiratory Rate Blood Pressure 113/80 118/77 120/75 Blood Pressure Mean 96 83 87 Pulse Oximetry 92 93 94 Sepsis Recent Fever Within 48 Hours Sepsis New/Unexplained Change in Mental Status Sepsis Action Taken by Nursing 12/01/19 18:00 12/01/19 18:05 12/01/19 18:10 Temperature Temperature Source Pulse Rate 65 60 60 Pulse Rate from SpO2 Sensor 63 62 61 Respiratory Rate 20 17 Blood Pressure 115/76 128/105 H 116/73 Blood Pressure Mean 80 117 84 Pulse Oximetry 93 95 Sepsis Recent Fever Within 48 Hours Sepsis New/Unexplained Change in Mental Status Sepsis Action Taken by Nursing 12/01/19 18:15 12/01/19 18:21 12/01/19 18:28 Temperature Temperature Source Pulse Rate 61 60 65 Pulse Rate from SpO2 Sensor 60 60 Respiratory Rate 15 16 Blood Pressure 111/76 130/75 114/74 Blood Pressure Mean 89 80 77 Pulse Oximetry 96 94 Sepsis Recent Fever Within 48 Hours Sepsis New/Unexplained Change in Mental Status Sepsis Action Taken by Nursing 12/01/19 18:30 12/01/19 18:35 Temperature Temperature Source Pulse Rate 62 Pulse Rate from SpO2 Sensor 65 Respiratory Rate Blood Pressure 117/74 140/78 Blood Pressure Mean 83 99 Pulse Oximetry 98 98 Sepsis Recent Fever Within 48 Hours Sepsis New/Unexplained Change in Mental Status Sepsis Action Taken by Nursing General: Mildly anxious appearing middle-aged male in no respiratory distress. HEENT: Normal cephalic atraumatic. Pupils are equal round and reactive to light. Extraocular movements are intact. Oropharynx is pink with moist mucous membranes. No swelling of the mouth lips or tongue. Neck: Supple with a midline trachea. No meningeal signs or stiffness, no JVD or bruits. No Stridor. Chest: Clear to auscultation bilaterally. No wheezes or rhonchi. No increased work of breathing. Heart: regular rate and rhythm. Abdomen: Soft nontender, nondistended without rebound guarding or rigidity. Extremities: No cyanosis clubbing or edema. No calf tenderness or asymmetry Spine/Back. Non tender to palpation. No CVA tenderness Skin: Good turgor without rashes. Neurologic exam: Cranial nerves two through 12 are intact. Motor and sensation are intact and symmetrical throughout. Course Course 1611: The patient was evaluated in room B2, and a complete history and physical examination were performed. 1701: I reevaluated the patient. He was hyperventilating. He is very anxious and teary eyed. I was worried about him not being responsive. I calmed him down. There is no evidence to suggest he had an allergic reaction. He states he feels anxious and scared. His blood sugar was 88. I am ordering a repeat EKG. 1718: The patient is still anxious and teary-eyed. 1732: He is sleeping right now. 1802: I reevaluated the patient. He is feeling much better. He states he is willing to stay for further cardiac rule out. 180: I discussed the patient's case with Dr. Rissa Parra - [facility] spitalist. She will evaluate the patient for further management Administered Medications Amlodipine Besylate (Norvasc) 2.5 mg PO QPM KRISTI Stop: 12/31/19 20:59 Last Admin: 12/01/19 22:26 Dose: 2.5 mg Documented by: [id number] Bupropion HCl (Wellbutrin-Sr) 150 mg PO BID KRISTI Stop: 12/31/19 20:59 Last Admin: 12/01/19 22:26 Dose: 150 mg Documented by: [id number] Ioversol (Optiray 320 125ml) 119 ml IV ONCE PRN PRN Reason: Interaction Checking Stop: 12/05/19 16:53 Last Admin: 12/01/19 16:55 Dose: 119 ml Documented by: [id number] Discontinued Medications Lorazepam (Ativan) 0.5 mg in 1 mls @ 1 mls/min IV NOW STA Stop: 12/01/19 17:13 Last Admin: 12/01/19 17:19 Dose: 1 mls/min Documented by: [id number] Medical Decision Making Differential Diagnosis Differential Diagnosis includes but is not limited to acute coronary syndrome, musculoskeletal, aortic dissection, PE, anxiety, and electrolyte or metabolic abnormality. Medical Records Attestation: I reviewed the patient's medical records. Home Medications Current Medication List: was personally reviewed by me Laboratory Data Attestation: I reviewed the patient's lab results. Result diagrams: 12/01/19 15:43 12/01/19 15:43 Lab Results 12/01/19 12/01/19 12/01/19 Range/Units 15:43 15:43 15:43 WBC 6.72 (4.8-10.8) K/uL RBC 4.74 (4.7-6.1) M/uL Hgb 14.6 (14.0-18.0) g/dL POC Hgb (14.0-18.0) g/dl Hct 44.0 (42-52) % POC Hct (42-52) % MCV 92.8 (80-100) fL MCH 30.8 (25-34) pg MCHC 33.2 (32-36) g/dL RDW Std Deviation 46.7 H (36.4-46.3) fL RDW Coeff of Rajiv 13.7 (11.5-14.5) % Plt Count 220 (130-400) K/uL MPV 11.0 H (7.4-10.4) fL Immature Gran % (Auto) 0.1 % Neut % (Auto) 51.8 % Lymph % (Auto) 35.6 % [place] % (Auto) 8.8 % Eos % (Auto) 3.3 % Baso % (Auto) 0.4 % Immature Gran # (Auto) 0.01 (0.00-0.02) K/uL Neut # (Auto) 3.48 (1.4-6.5) K/uL Lymph # (Auto) 2.39 (1.2-3.4) K/uL [place] # (Auto) 0.59 (0.11-0.59) K/uL Eos # (Auto) 0.22 (0-0.5) K/uL Baso # (Auto) 0.03 (0-0.2) K/uL PT 10.2 (9.0-12.0) Seconds INR 1.0 (0.9-1.1) APTT 31.1 H (21.0-31.0) Seconds PTT Ratio 1.1 POC Sodium (135-144) mEq/L Sodium 137 (136-145) mmol/L POC Potassium (3.3-5.0) mEq/L Potassium 3.7 (3.5-5.1) mmol/L POC Chloride (101-112) mEq/L Chloride 106 (98-107) mmol/L Carbon Dioxide 26 (21-32) mmol/L POC Total CO2 (24-31) mEq/l Anion Gap 5.0 (3-11) POC Anion Gap (16-25) mmol/L POC BUN (7-18) mg/dl BUN 12 (7-18) mg/dl Creatinine 1.19 (0.6-1.4) mg/dl POC Creatinine (0.6-1.3) mg/dl Est Cr Clr Drug Dosing 78.7 ml/min Est GFR ( Amer) 74.9 Est GFR (Non-Af Amer) 64.6 BUN/Creatinine Ratio 10.3 (10-20) Glucose 98 (70-99) mg/dl POC Glucose (70-99) POC Glucose (other) (70-99) mg/dl Calcium 9.3 (8.5-10.1) mg/dl POC Ioniz Calcium Hillary (1.12-1.32) mmol/l Total Bilirubin 0.3 (0.2-1) mg/dl AST 19 (15-37) U/L ALT 33 (12-78) U/L Alkaline Phosphatase 65 (45-117) U/L Troponin I < 0.015 (0-0.045) ng/ml Total Protein 7.4 (6.4-8.2) gm/dl Albumin 3.7 (3.4-5.0) gm/dl Globulin 3.7 (2.5-4.0) gm/dl Albumin/Globulin Ratio 1.0 (0.9-2) Lipase 131 (73-393) U/L Specimen Hemolysis 12/01/19 12/01/19 Range/Units 16:26 17:03 WBC (4.8-10.8) K/uL RBC (4.7-6.1) M/uL Hgb (14.0-18.0) g/dL POC Hgb 14.6 (14.0-18.0) g/dl Hct (42-52) % POC Hct 43 (42-52) % MCV (80-100) fL MCH (25-34) pg MCHC (32-36) g/dL RDW Std Deviation (36.4-46.3) fL RDW Coeff of Rajiv (11.5-14.5) % Plt Count (130-400) K/uL MPV (7.4-10.4) fL Immature Gran % (Auto) % Neut % (Auto) % Lymph % (Auto) % [place] % (Auto) % Eos % (Auto) % Baso % (Auto) % Immature Gran # (Auto) (0.00-0.02) K/uL Neut # (Auto) (1.4-6.5) K/uL Lymph # (Auto) (1.2-3.4) K/uL [place] # (Auto) (0.11-0.59) K/uL Eos # (Auto) (0-0.5) K/uL Baso # (Auto) (0-0.2) K/uL PT (9.0-12.0) Seconds INR (0.9-1.1) APTT (21.0-31.0) Seconds PTT Ratio POC Sodium 140 (135-144) mEq/L Sodium (136-145) mmol/L POC Potassium 3.7 (3.3-5.0) mEq/L Potassium (3.5-5.1) mmol/L POC Chloride 103 (101-112) mEq/L Chloride (98-107) mmol/L Carbon Dioxide (21-32) mmol/L POC Total CO2 24 (24-31) mEq/l Anion Gap (3-11) POC Anion Gap 18.0 (16-25) mmol/L POC BUN 12 (7-18) mg/dl BUN (7-18) mg/dl Creatinine (0.6-1.4) mg/dl POC Creatinine 1.1 (0.6-1.3) mg/dl Est Cr Clr Drug Dosing ml/min Est GFR ( Amer) Est GFR (Non-Af Amer) BUN/Creatinine Ratio (10-20) Glucose (70-99) mg/dl POC Glucose 88 (70-99) POC Glucose (other) 94 (70-99) mg/dl Calcium (8.5-10.1) mg/dl POC Ioniz Calcium [place] 1.19 (1.12-1.32) mmol/l Total Bilirubin (0.2-1) mg/dl AST (15-37) U/L ALT (12-78) U/L Alkaline Phosphatase (45-117) U/L Troponin I (0-0.045) ng/ml Total Protein (6.4-8.2) gm/dl Albumin (3.4-5.0) gm/dl Globulin (2.5-4.0) gm/dl Albumin/Globulin Ratio (0.9-2) Lipase (73-393) U/L Specimen Hemolysis Imaging Data Radiologist's Impression: Radiology results as stated below per my review and the radiologist's interpretation: CT angio chest dissec wo/w con CT DOSE: 1646.92 mGy.cm HISTORY: Chest pain left cp, hx of aortic root dil TECHNIQUE: Multiaxial CT images of the chest, abdomen, and pelvis were performed both before and after the intravenous administration of contrast to evaluate the aorta. Maximal intensity projection images were also obtained. A dose lowering technique was utilized adhering to the principles of ALARA. COMPARISON STUDY: None. FINDINGS: Moderate dilatation of the aortic root at 4.25 cm. No evidence for dissection. The remainder the thoracic aorta is normal in course and caliber. No significant mediastinal or hilar adenopathy. The lungs are clear. IMPRESSION: 1. No evidence for aortic dissection. 2. Mild dilatation root of the aorta 4.[address] chest is otherwise negative. 4. No major filling defect of the pulmonary arterial vasculature. ACT 112: Negative or not required by law. The above report was generated using voice recognition software. It may contain grammatical, syntax or spelling errors. Electronically signed by: Meliton Potter M.D. 12/01/2019 5:06 PM XR chest 1V portable CLINICAL HISTORY: Chest Pain pain COMPARISON STUDY: 01/27/2017 FINDINGS: The bones soft tissues and hemidiaphragms are normal. The cardiomediastinal silhouette is normal. The lungs are clear. The pulmonary vasculature is normal. IMPRESSION: Negative chest. ACT 112: Negative or not required by law. The above report was generated using voice recognition software. It may contain grammatical, syntax or spelling errors. Electronically signed by: Meliton Potter M.D. 12/01/2019 4:48 PM ECG Data Attestation: I personally reviewed and interpreted this ECG as follows: Indication: + chest pain Rate (beats per minute): 63 Rhythm: + normal sinus ECG ST segments: no ST depression and no ST elevation ECG Findings: no PACs and no PVCs Comparison ECG Date: from (02/16/14) Change: no significant change Additional Comments: 2nd EKG: Normal sinus rhythm. 60 BPM. No acute ischemic change. No significant change from the first EKG. Blood Pressure Blood Pressure Findings: Normal blood pressure Blood Pressure Disposition: further management by hospitalist SHAHIDA Narrative This patient comes in as scribed above. He was placed in room B2. He is brought in after having left-sided chest pain. His pain is somewhat atypical for cardiac disease as it was worse when he was bending. He says he feels better at rest. He did receive aspirin and nitroglycerin on route and that may have helped a little bit. He denies pain at present. He denies any cardiac history however he does have a history of a dilated aortic root. Given his history, I do feel that he needs a full work-up including a CT to rule out aortic dissection. Chest x-ray, EKG, and CAT scan were obtained as well as multiple blood testing. He was reassessed frequently. His initial EKG was unremarkable. His troponin was also unremarkable as was his blood work. Chest x-ray does not show any pneumothorax or any CHF. I did obtain a CTA of his chest and it was unremarkable. When he got back from CAT scan I got called to his room as he seemed confused and sleepy. He had no evidence to suggest allergic reaction. He was very teary-eyed and anxious at that point and I think this was most likely anxiety. He was hyperventilating. He was given Ativan 0.5 mg IV and calm down and felt better. A second EKG is unremarkable. Given his symptoms, I do think he should be observed and further cardiac work-up. I have consulted the [facility] to see him in the ER. Impression & Plan Chest pain, SOB (shortness of breath), Anxiety, Altered level of consciousness Discharge Plan Visit Data *Final* Discharge Date/Time: 12/01/19 19:24 Chief Complaint: Chest Pain Stated Complaint: CHEST PAIN ED Provider: Teddy Humphries Discharge Problem: Chest pain, SOB (shortness of breath), Anxiety, Altered level of consciousness Patient Disposition: Admitted As Inpatient Discharge Instructions Interventions: ED Discharge Assessment Last Done: 12/01/19 19:24 Discharge Problem: Chest pain Qualifiers: Chest pain type: unspecified Qualified Code(s): R07.9 - Chest pain, unspecified The scribe's documentation has been prepared under my direction and personally reviewed by me in its entirety. I confirm that the note above accurately reflects all work, treatment, procedures, and medical decision making performed by me.
[2019-12-01 16:42] LABS: iSTAT Creatinine 1.1 mg/dl (0.6-1.3); iSTAT Hemoglobin 14.6 g/dl (14.0-18.0); iSTAT Ionized Calcium 1.19 mmol/l (1.12-1.32); iSTAT Potassium 3.7 mEq/L (3.3-5.0)
--- NOTE | 2019-12-01 16:49 | XRay Report ---
XR chest 1V portable CLINICAL HISTORY: Chest Pain pain COMPARISON STUDY: 01/27/2017 FINDINGS: The bones soft tissues and hemidiaphragms are normal. The cardiomediastinal silhouette is n ormal. The lungs are clear. The pulmonary vasculature is normal. IMPRESSION: Negative chest. ACT 112: Negative or not required by law. The above report was generated using voice recognition software. It may contain grammatical, syntax or spelling errors. Electronically signed by: Meliton Potter M.D. 12/01/2019 4:48 PM
[2019-12-01] MEDS ORDERED: OPTIRAY 320 125ml IV PRN (16:54)
[2019-12-01 16:55] LABS: Basophils # (auto) 0.03 K/uL (0-0.2); Basophils % (auto) 0.4 %; Eosinophils # (auto) 0.22 K/uL (0-0.5); Eosinophils % (auto) 3.3 %; Hemoglobin 14.6 g/dL (14.0-18.0); Immature Granulocytes # (auto) 0.01 K/uL (0.00-0.02); Immature Granulocytes % (auto) 0.1 %; Lymphocytes # (auto) 2.39 K/uL (1.2-3.4); Lymphocytes % (auto) 35.6 %; Mean Corpuscular Hemoglobin 30.8 pg (25-34); Mean Corpuscular Hgb Conc 33.2 g/dL (32-36); Mean Corpuscular Volume 92.8 fL (80-100); Monocytes # (auto) 0.59 K/uL (0.11-0.59); Monocytes % (auto) 8.8 %; Neutrophils # (auto) 3.48 K/uL (1.4-6.5); Neutrophils % (auto) 51.8 %; Platelet Count 220 K/uL (130-400); RDW Coefficient of Variation 13.7 % (11.5-14.5); RDW Standard Deviation 46.7 fL (36.4-46.3); Red Blood Count 4.74 M/uL (4.7-6.1); White Blood Count 6.72 K/uL (4.8-10.8)
[2019-12-01 17:04] LABS: Alanine Aminotransferase 33 U/L (12-78); Albumin Level 3.7 gm/dl (3.4-5.0); Aspartate Aminotransferase 19 U/L (15-37); BUN Creatinine Ratio 10.3 (10-20); Blood Urea Nitrogen 12 mg/dl (7-18); Calcium 9.3 mg/dl (8.5-10.1); Carbon Dioxide 26 mmol/L (21-32); Chloride 106 mmol/L (98-107); Creatinine Clr Calc Pharmacy 78.7 ml/min; Est GFR (African American) 74.9; Est GFR (Non-African American) 64.6; Glucose 98 mg/dl (70-99); Lipase 131 U/L (73-393); Partial Thromboplastin Ratio 1.1; Partial Thromboplastin Time 31.1 Seconds (21.0-31.0); Potassium 3.7 mmol/L (3.5-5.1); Prothrombin Time 10.2 Seconds (9.0-12.0); Sodium 137 mmol/L (136-145)
--- NOTE | 2019-12-01 17:07 | CT Scan Report ---
CT angio chest dissec wo/w con CT DOSE: 1646.92 mGy.cm HISTORY: Chest pain left cp, hx of aortic root dil TECHNIQUE: Multiaxial CT images of the chest, abdomen, and pelvis were performed both before and afte r the intravenous administration of contrast to evaluate the aorta. Maximal intensity projection imag es were also obtained. A dose lowering technique was utilized adhering to the principles of ALARA. COMPARISON STUDY: None. FINDINGS: Moderate dilatation of the aortic root at 4.25 cm. No evidence for dissection. The remainde r the thoracic aorta is normal in course and caliber. No significant mediastinal or hilar adenopathy. The lungs are clear. IMPRESSION: 1. No evidence for aortic dissection. 2. Mild dilatation root of the aorta 4.[address] chest is otherwise negative. 4. No major filling defect of the pulmonary arterial vasculature. ACT 112: Negative or not required by law. The above report was generated using voice recognition software. It may contain grammatical, syntax or spelling errors. Electronically signed by: Meliton Potter M.D. 12/01/2019 5:06 PM
[2019-12-01 17:08] LABS: Alkaline Phosphatase 65 U/L (45-117); Bilirubin,Total 0.3 mg/dl (0.2-1); Globulin 3.7 gm/dl (2.5-4.0); Total Protein 7.4 gm/dl (6.4-8.2); Troponin I < 0.015 ng/ml (0-0.045)
[2019-12-01] MEDS ORDERED: LORazepam 0.5 MG/1 ML VIAL IV STA (17:12)
--- NOTE | 2019-12-01 18:56 | History & Physical Report ---
Date of Service December 01, 2019 Assessment & Plan (1) Chest pain: r/o ACS Trop neg x1, serials pending EKG WNL CXR, CTA neg for acute CBC, PRP WNL Lipids pending Neg stress test 08/2019 per pt, will repeat in AM if trop remains neg given new SOB with mild exertion the last few days GI cocktail PRN given hx of reflux and bending over was initial onset of sx (2) Altered level of consciousness: Possibly PTSD reaction given resolution with ativan No current sx monitor Discussed with pt and family and they agree (3) Aortic root dilation: Stable as per CTA Follows with Dr. Lou if needed (4) Hyperlipidemia: continue home meds (5) HTN (hypertension): continue home meds (6) Moderate obstructive sleep apnea: CPAP (7) Anxiety: with PTSD and depression continue home meds (8) Smokeless tobacco use: (9) DVT prophylaxis: Ambulation History of Present Illness Primary Care Provider: Michael Aviles MD 64 y/o M c/o chest pain. Pt states that he bent over to tie his shoe around 2:30-3p today and had sudden onset of severe chest pain. He sat up and this resolved. He bent over again and it returned. He sat up again, but this time it did not resolve. His moved him to lie down and he developed L UE pain. He did have some mild SOB with this as well. He was slightly nauseated, but no emesis. 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 He worked both Monday and Monday nights and noted some SOB when walking from his car to work. He did not have pepe chest pain with this, but did feel some chest pressure. It resolved and he was able to work without issue. He has never had chest pain like this in the past. Pt denies fever, abd pain, n/v/c/d, LE pain. He does get LE swelling if he is on his feet for long periods, but none today. Pt was given aspirin and nitro by EMS and is currently chest pain free. Pt became unresponsive while in the CT machine. He states he has severe claustrophobia and so was keeping is eyes closed in the machine. He does remember being told that "my IV blew out" and that they were going to clean him up. That is the last thing he remembers. When he came back, states pt was "out of it" and was difficult to arouse. He did not recognize her at first. He was given ativan 1mg and this resolved. He is back to his usual mentation per himself and family. Pt reports a neg stress test 08/2019. He follows with Dr. 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 Allergies Allergy/AdvReac Type Severity Reaction Status Date / Time acetaminophen AdvReac Unknown IRRITABLE Verified 12/01/19 17:08 hydrocodone AdvReac Unknown IRRITABLE Verified 12/01/19 17:08 Home Medications Home Medications Medication Instructions Recorded Confirmed Type lisinopril 10 1 tab PO DAILY #90 tab 06/14/19 12/01/19 Rx mg-hydrochlorothiazide 12.5 mg tablet amlodipine 2.5 mg tablet 2.5 mg PO QPM #30 tab 09/13/19 12/01/19 History atorvastatin 10 mg tablet 10 mg PO DAILY tab 09/13/19 12/01/19 History clonazepam 0.5 mg tablet 0.5 mg PO QPM PRN tab 09/13/19 12/01/19 History multivitamin 1 tab PO DAILY 09/13/19 12/01/19 History benzonatate 200 mg capsule 200 mg PO TID PRN #30 cap 09/24/19 12/01/19 Rx fluticasone propionate 50 1 sprays INTNAS UD 10/08/19 12/01/19 History mcg/actuation nasal spray,suspension escitalopram oxalate 20 mg tablet 20 mg PO DAILY #90 tab 10/16/19 12/01/19 Rx bupropion HCl 150 mg tablet,12 hr 150 mg PO BID #180 ea 10/29/19 12/01/19 Rx sustained-release Past Med/Surg History Medical History Anxiety Aortic root dilation (Chronic) Depression HTN (hypertension) (Chronic) Hyperlipidemia (Chronic) Moderate obstructive sleep apnea (Chronic) PTSD (post-traumatic stress disorder) Reactive depression (situational) (Chronic) Smokeless tobacco use (Chronic) Spinal stenosis (Chronic) Surgical History History of back surgery Family History (Updated 12/01/19 @ 19:04 by Rissa Parra DO) Mother Myocardial infarction Brother Myocardial infarction Social History (Updated 12/01/19 @ 19:04 by Rissa Parra DO) Preferred Language: Bulgarian Visual Impairment: No Limitations Hearing Ability: Use of Hearing Aid marital status: Current Living Situation: Spouse current occupational status: retired Feels Safe at Home: Yes Smoking Status: Former smoker Tobacco Type: smokeless tobacco ; Do You Dip or Chew Tobacco: Yes ; Smoking End Date: late ; Hx Alcohol Use: Yes Alcohol type: beer Alcohol Intake Frequency: Holidays/Special Occasions Alcohol Intake Frequency Comment: once every 1-2 weeks Hx Substance Use: No Childhood Exposure to Second-Hand Smoke: No Dental Care, Regularly: Yes Physical Activity Frequency: Daily Seatbelt Use: always Sunscreen Use: No Review of Systems Review of Systems: Pertinent positives and negatives reviewed in HPI--all others negative Physical Exam Constitutional: WD/WN, vitals as above Eyes: normal visual lacy by confrontation and + anicteric sclerae Neck: normal visual inspection and trachea midline Respiratory: normal respiratory effort, lungs clear to auscultation Cardiovascular: Rate/Rhythm: regular rate and regular rhythm Gastrointestinal (Abdomen): Inspection/Auscultation: abdomen not distended Percussion/Palpation: abdomen soft; abdomen nontender Musculoskeletal: Head/Neck/Chest: normocephalic and head atraumatic negative for edema, peripheral pulses intact Skin: no rashes, warm and dry Neurologic: awake; not confused Speech / Cognition: normal speech Psychiatric: A+Ox3, euthymic affect Results & Data Vital Signs (Past 12 Hours) Vital Signs Temp Pulse Resp BP Pulse Ox 12/01/19 18:28 65 16 114/74 12/01/19 18:21 60 130/75 94 12/01/19 18:15 61 15 111/76 96 12/01/19 18:10 60 116/73 95 12/01/19 18:05 60 17 128/105 H 93 12/01/19 18:00 65 20 115/76 12/01/19 17:55 120/75 94 12/01/19 17:50 118/77 93 12/01/19 17:45 62 113/80 92 12/01/19 17:40 60 13 151/78 H 93 12/01/19 17:35 57 L 16 165/78 H 91 12/01/19 17:30 55 L 10 L 161/83 H 91 12/01/19 17:25 56 L 17 163/89 H 97 12/01/19 17:15 63 17 131/80 99 12/01/19 17:04 61 19 129/87 97 12/01/19 17:00 61 13 142/86 H 98 12/01/19 16:59 59 L 11 L 140/87 96 12/01/19 16:40 178/164 H 12/01/19 16:30 68 21 167/99 H 99 12/01/19 16:27 98 12/01/19 16:21 36.8 C 62 18 102/73 98 Diagnostic Findings CTA chest: neg for dissection, PE, PNA ECG Rhythm: normal sinus Code Status & VTE Plan Code Status Full code VTE Prophylaxis Plan VTE Prophylaxis will be ordered: Yes PG Care Time/CCT Total # of Minutes Spent Total Time Spent with Patient: Total time spent is greater than 50% in coordination of care (as documented) at patient's floor/unit and/or counseling patient: (1) Chest pain Chest pain type: unspecified Qualified Code(s): R07.9 - Chest pain, unspecified (2) Hyperlipidemia Hyperlipidemia type: mixed hyperlipidemia Qualified Code(s): E78.2 - Mixed hyperlipidemia (3) HTN (hypertension) Hypertension type: essential hypertension Qualified Code(s): I10 - Essential (primary) hypertension
[2019-12-01] MEDS ORDERED: clonazePAM 0.5 MG TAB PO PRN (19:58)
[2019-12-01] MEDS ORDERED: MAGNESIUM HYDROXIDE SUSP 30 ML UDC PO PRN (19:58)
[2019-12-01] MEDS ORDERED: ACETAMINOPHEN 325 MG TAB PO PRN (19:58)
[2019-12-01] MEDS ORDERED: ALUMINUM/MAGNESIUM SUSP 18 ML, LIDOCAINE HCL VISCOUS 2% 6 ML, BARCODE IDENTIFIER 1 EA PO PRN (19:58)
[2019-12-01] MEDS ORDERED: ONDANSETRON INJ 2 MG/ML 2 ML VIAL IV PRN (19:58)
[2019-12-01] MEDS ORDERED: BENZONATATE 100 MG CAPSULE PO PRN (19:58)
[2019-12-01] MEDS ORDERED: FLUTICASONE PROPIONATE NA SPR 16 GM BTL PRN (19:58)
[2019-12-01] MEDS ORDERED: AMLODIPINE BESYLATE 5 MG TAB PO SCH (21:00)
[2019-12-01] MEDS: BuPROPion SR 150 MG TABCR PO SCH (22:26)
[2019-12-02 02:14] LABS: Chol HDL Ratio 4; Cholesterol 153 mg/dl (0-200); HDL Cholesterol 35 mg/dl; LDL Cholesterol Calculated 58 mg/dl; Triglycerides 300 mg/dl (0-150); Troponin I < 0.015 ng/ml (0-0.045); VLDL Cholesterol 60 mg/dl
[2019-12-02] MEDS: BuPROPion SR 150 MG TABCR PO SCH (07:29)
[2019-12-02] MEDS ORDERED: ESCITALOPRAM OXALATE 20 MG TAB PO SCH (09:00)
[2019-12-02] MEDS ORDERED: LISINOPRIL/HCTZ 10/12.5MG TAB PO SCH (09:00)
[2019-12-02] MEDS ORDERED: ATORVASTATIN 10 MG TAB PO SCH (09:00)
[2019-12-02] MEDS ORDERED: MULTIVITAMIN TAB PO SCH (09:00)
--- NOTE | 2019-12-02 10:44 | Cardiology Consultation ---
Date of Consultation December 02, 2019 Assessment & Plan (1) Chest pain: (2) SOB (shortness of breath): (3) HTN (hypertension): (4) Hyperlipidemia: (5) Aortic root dilation: (6) Equivocal stress echocardiogram: Patient with cardiac risk factors of age, hypertension, dyslipidemia, and family history of unspecified heart disease who presents with several days of exertional chest discomfort and shortness of breath. On further discussion, he believes he has had exertional shortness of breath for the last 6 months. His exercise stress echocardiogram is considered equivocal, with baseline atypical chest pain noted at rest, that worsened with exercise, and his activity tolerance was below that which was observed in Mar, 2019 when he completed 9 minutes on a Brant protocol, as compared to just over 6 minutes on the present study. The EKG at peak stress was limited by baseline artifact. The resting wall motion was normal with normal post exercise wall motion. Given equivocal EKG and equivocal symptoms, further assessment, with cardiac catheterization is recommended and the patient is agreeable. He did receive contrast for a CT angiogram of the chest yesterday, and will therefore treat him with normal saline at present, aspirin has been ordered first dose now, and he is already on statin therapy. His aortic root/ascending aorta diameter was measured to be 4.[address] yesterday, which is little bit smaller than the previous echo measurement, but no dissection was noted. Patient was transferred from the stress test lab back to the telemetry unit in stable condition, with plans for reassessment, and will schedule cardiac catheterization to perhaps be performed later today. History of Present Illness Attending Physician: Rissa Parra, History of Present Illness Nathanael Gatica is a 64 year old male seen in cardiology consultation per the request of Dr Santos Parra for the evaluation of chest discomfort and equivocal exercise stress echocardiogram. He presented to the emergency department yesterday complaining of recent exertional shortness of breath chest discomfort. 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 The patient's presenting EKG revealed no significant ischemic changes. Troponin has been negative x3 thus far this hospital stay. A CT angiogram was performed yesterday on 12/01/2019 with no evidence of aortic dissection. The maximum dimension of the aortic root and ascending aorta were reported to be 4.25 cm by the radiology report. CT of the chest revealed no significant lung abnormalities. The study was timed for enhancement of the aorta, but no major filling defects were noted in the pulmonary vasculature per the report. Of note the patient apparently lost consciousness while in the CT scanner. He describes a longstanding history of anxiety and claustrophobia. He recovered post CT without incident, and received medication for anxiety. The patient follows with Dr. Lou of our practice. He had previously undergone an exercise stress echocardiogram on 03/28/2019 at [facility]. Although the patient described that the stress test was performed and just routine follow-up of his moderate aortic root and ascending aorta dilatation, per review of his chart, it had also been performed due to concerns of subjective complaint of exertional shortness of breath. At that time he exercised 9 minutes on standard Brant protocol, with appropriate heart rate and blood pressure response to exercise, and normal EKG. The resting and stress wall motion were normal. The resting LVEF was normal at 55 to 59%. The aortic root was moderately dilated at 4.5 cm in the ascending thoracic aorta was moderately dilated at 4.8 cm. Past Medical History: HTN GERD Past Surgical History: Multiple paravertebral facet injections Remote arthroscopic surgery of the left knee Family History: Unspecified heart disease in his mother, and 2 brothers, his father had a history of hypertension. 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 Allergies Allergy/AdvReac Type Severity Reaction Status Date / Time acetaminophen AdvReac Unknown IRRITABLE Verified 12/01/19 17:08 hydrocodone AdvReac Unknown IRRITABLE Verified 12/01/19 17:08 Home Medications Home Medications Medication Instructions Recorded Confirmed Type lisinopril 10 1 tab PO DAILY #90 tab 06/14/19 12/01/19 Rx mg-hydrochlorothiazide 12.5 mg tablet amlodipine 2.5 mg tablet 2.5 mg PO QPM #30 tab 09/13/19 12/01/19 History atorvastatin 10 mg tablet 10 mg PO DAILY tab 09/13/19 12/01/19 History clonazepam 0.5 mg tablet 0.5 mg PO QPM PRN tab 09/13/19 12/01/19 History multivitamin 1 tab PO DAILY 09/13/19 12/01/19 History benzonatate 200 mg capsule 200 mg PO TID PRN #30 cap 09/24/19 12/01/19 Rx fluticasone propionate 50 1 sprays INTNAS UD 10/08/19 12/01/19 History mcg/actuation nasal spray,suspension escitalopram oxalate 20 mg tablet 20 mg PO DAILY #90 tab 10/16/19 12/01/19 Rx bupropion HCl 150 mg tablet,12 hr 150 mg PO BID #180 ea 10/29/19 12/01/19 Rx sustained-release Patient History Medical History Anxiety Aortic root dilation (Chronic) Depression HTN (hypertension) (Chronic) Hyperlipidemia (Chronic) Moderate obstructive sleep apnea (Chronic) PTSD (post-traumatic stress disorder) Reactive depression (situational) (Chronic) Smokeless tobacco use (Chronic) Spinal stenosis (Chronic) Surgical History History of back surgery Family History (Updated 12/01/19 @ 19:04 by Rissa Parra DO) Mother Myocardial infarction Brother Myocardial infarction Social History (Updated 12/01/19 @ 19:04 by Rissa Parra DO) Preferred Language: Mongolian Communication Ability: Effective Visual Impairment: No Limitations Hearing Ability: Use of Hearing Aid Consulting Senior Practice Director Required: No Beliefs That Will Affect Care: None marital status: Current Living Situation: Spouse current occupational status: retired Feels Safe at Home: Yes Smoking Status: Former smoker Second Hand Exposure: No ; Hx Alcohol Use: Yes Alcohol type: beer Alcohol Intake Frequency: Holidays/Special Occasions Alcohol Intake Frequency Comment: once every 1-2 weeks Hx Substance Use: No Childhood Exposure to Second-Hand Smoke: No Dental Care, Regularly: Yes Physical Activity Frequency: Daily Seatbelt Use: always Sunscreen Use: No Review of Systems Review of Systems: All systems reviewed & are unremarkable except as noted in HPI & below Cardiovascular: + chest pain with activity and + dyspnea on exertion; no syncope and no edema Physical Exam Physical Exam: Temp Pulse Resp BP Pulse Ox 36.4 C L 58 L 19 124/80 95 01/06/20 07:41 12/02/19 07:41 12/02/19 07:41 12/02/19 07:41 12/02/19 07:41 Respiratory: normal respiratory effort, lungs clear to auscultation Cardiovascular: RRR, no murmur, no edema Gastrointestinal (Abdomen): normal bowel sounds, soft, nontender, no hepatosplenomegaly Skin: no rashes, warm and dry Neurologic: PERRL, EOMI, accommodation nl, no face palsy, no dysarthria Psychiatric: A+Ox3, euthymic affect Mood: + anxious mood Results & Data Vital Signs (Past 12 Hours) Vital Signs Temp Pulse Pulse Resp BP Pulse Ox 12/02/19 07:41 36.4 C L 58 L 19 124/80 95 12/02/19 04:59 62 16 94 12/02/19 03:36 36.7 C 68 18 131/83 95 12/02/19 01:02 69 14 98 12/02/19 00:00 36.7 C 76 18 136/76 96 12/01/19 23:33 67 16 96 12/01/19 23:00 64 Laboratory Results Cardiac Enzymes 12/01/19 12/01/19 12/02/19 Range/Units 15:43 20:10 01:35 AST 19 (15-37) U/L Troponin I < 0.015 < 0.015 < 0.015 (0-0.045) ng/ml Coagulation 12/01/19 Range/Units 15:43 PT 10.2 (9.0-12.0) Seconds APTT 31.1 H (21.0-31.0) Seconds Lipids 12/02/19 Range/Units 01:35 Triglycerides 300 H (0-150) mg/dl Cholesterol 153 (0-200) mg/dl HDL Cholesterol 35 mg/dl Cholesterol/HDL Ratio 4 CBC 12/01/19 Range/Units 15:43 WBC 6.72 (4.8-10.8) K/uL RBC 4.74 (4.7-6.1) M/uL Hgb 14.6 (14.0-18.0) g/dL Hct 44.0 (42-52) % Plt Count 220 (130-400) K/uL Neut # (Auto) 3.48 (1.4-6.5) K/uL Lymph # (Auto) 2.39 (1.2-3.4) K/uL [place] # (Auto) 0.59 (0.11-0.59) K/uL Eos # (Auto) 0.22 (0-0.5) K/uL Baso # (Auto) 0.03 (0-0.2) K/uL Comprehensive Metabolic Panel 12/01/19 Range/Units 15:43 Sodium 137 (136-145) mmol/L Potassium 3.7 (3.5-5.1) mmol/L Chloride 106 (98-107) mmol/L Carbon Dioxide 26 (21-32) mmol/L BUN 12 (7-18) mg/dl Creatinine 1.19 (0.6-1.4) mg/dl Glucose 98 (70-99) mg/dl Calcium 9.3 (8.5-10.1) mg/dl AST 19 (15-37) U/L ALT 33 (12-78) U/L Alkaline Phosphatase 65 (45-117) U/L Total Protein 7.4 (6.4-8.2) gm/dl Albumin 3.7 (3.4-5.0) gm/dl Intake and Output 12/01/19 12/02/19 12/02/19 22:59 06:59 14:59 Other: # Unmeasured Voids 1 1 Weight 107.1 kg 107.1 kg Diagnostic Findings EKG performed 12/01/2019 1616 revealed normal sinus rhythm at 63 bpm, normal EKG. Repeat tracing performed 12/01/2027 1713 reviewed independently revealed normal sinus rhythm without ST changes. Medications Administered Current Inpatient Medications Acetaminophen (Tylenol) 650 mg PO Q4H PRN PRN Reason: Pain or Fever Stop: 12/31/19 19:57 Amlodipine Besylate (Norvasc) 2.5 mg PO QPM KRISTI Stop: 12/31/19 20:59 Last Admin: 12/01/19 22:26 Dose: 2.5 mg Documented by: Atorvastatin Calcium (Lipitor) 10 mg PO DAILY KRISTI Stop: 01/01/20 08:59 Last Admin: 12/02/19 07:28 Dose: 10 mg Documented by: Benzonatate (Tessalon Perle) 200 mg PO TID PRN PRN Reason: cough Stop: 12/31/19 19:57 Bupropion HCl (Wellbutrin-Sr) 150 mg PO BID KRISTI Stop: 12/31/19 20:59 Last Admin: 12/02/19 07:29 Dose: 150 mg Documented by: Clonazepam (Klonopin) 0.5 mg PO QPM PRN PRN Reason: Anxiety Stop: 12/31/19 19:57 Al Hydrox/Mg Hydrox/Simethicone 18 ml/ Lidocaine HCl 6 ml/ BARCODE IDENTIFIER 1 ea 0 ml PO ONE PRN; Protocol PRN Reason: chest pain Stop: 12/31/19 19:57 Escitalopram Oxalate (Lexapro Tab) 20 mg PO DAILY KRISTI Stop: 01/01/20 08:59 Last Admin: 12/02/19 07:29 Dose: 20 mg Documented by: Fluticasone Propionate (Flonase) 1 sprays NA DAILY PRN PRN Reason: CONGESTION Stop: 12/31/19 19:57 Lisinopril/HCTZ (Prinzide 10/12.5mg) 1 tab PO DAILY KRISTI Stop: 01/01/20 08:59 Last Admin: 12/02/19 07:29 Dose: 1 tab Documented by: Ioversol (Optiray 320 125ml) 119 ml IV ONCE PRN PRN Reason: Interaction Checking Stop: 12/05/19 16:53 Last Admin: 12/01/19 16:55 Dose: 119 ml Documented by: Magnesium Hydroxide (Milk Of Magnesia) 30 ml PO Q12H PRN PRN Reason: Constipation Stop: 12/31/19 19:57 Multivitamins (Multivitamin Tab) 1 tab PO DAILY KRISTI Stop: 01/01/20 08:59 Last Admin: 12/02/19 07:29 Dose: 1 tab Documented by: Ondansetron HCl (Zofran) 4 mg IV Q6H PRN PRN Reason: Nausea Stop: 12/31/19 19:57 (1) Chest pain Chest pain type: unspecified Qualified Code(s): R07.9 - Chest pain, unspecified (2) HTN (hypertension) Hypertension type: essential hypertension Qualified Code(s): I10 - Essential (primary) hypertension (3) Hyperlipidemia Hyperlipidemia type: mixed hyperlipidemia Qualified Code(s): E78.2 - Mixed hyperlipidemia
[2019-12-02] MEDS ORDERED: ASPIRIN 81 MG CHEW PO STA (10:58)
[2019-12-02] MEDS ORDERED: SODIUM CHLORIDE 0.9% 1000ML 1,000 ML IV SCH (11:00)
[2019-12-02] MEDS ORDERED: fentaNYL citrate 100 MCG/2 ML VIAL ONE (13:05)
[2019-12-02] MEDS ORDERED: HEPARIN (PORCINE) 1000 UNIT/ML 10 ML (CATH LAB USE ONLY) ONE (13:05)
[2019-12-02] MEDS ORDERED: NiCARDipine HCL INJ 2.5 MG/ML 10 ML AMP ONE (13:05)
[2019-12-02] MEDS ORDERED: MIDAZOLAM HCL 1 MG/ML 2ML VIAL ONE (13:05)
[2019-12-02] MEDS ORDERED: NITROGLYCERIN/D5W 100MCG/ML 20ML SYR ONE (13:06)
--- NOTE | 2019-12-02 13:31 | Pre Anesthesia Assessment ---
Date of Service December 02, 2019 Pre Sedation Assessment Vital Signs Temp Pulse Pulse Resp BP BP Pulse Ox 12/02/19 13:05 60 20 131/83 97 12/02/19 07:41 97.5 F L 58 L 19 124/80 95 12/02/19 04:59 62 16 94 12/02/19 03:36 98.1 F 68 18 131/83 95 12/02/19 01:02 69 14 98 12/02/19 00:00 98.1 F 76 18 136/76 96 12/01/19 23:33 67 16 96 12/01/19 23:00 64 12/01/19 19:47 98.1 F 65 18 123/73 95 12/01/19 18:35 140/78 98 12/01/19 18:30 62 117/74 98 12/01/19 18:28 65 16 114/74 12/01/19 18:21 60 130/75 94 12/01/19 18:15 61 15 111/76 96 12/01/19 18:10 60 116/73 95 12/01/19 18:05 60 17 128/105 H 93 12/01/19 18:00 65 20 115/76 12/01/19 17:55 120/75 94 12/01/19 17:50 118/77 93 12/01/19 17:45 62 113/80 92 12/01/19 17:40 60 13 151/78 H 93 12/01/19 17:35 57 L 16 165/78 H 91 12/01/19 17:30 55 L 10 L 161/83 H 91 12/01/19 17:25 56 L 17 163/89 H 97 12/01/19 17:15 63 17 131/80 99 12/01/19 17:04 61 19 129/87 97 12/01/19 17:00 61 13 142/86 H 98 12/01/19 16:59 59 L 11 L 140/87 96 12/01/19 16:40 178/164 H 12/01/19 16:30 68 21 167/99 H 99 12/01/19 16:27 98 12/01/19 16:21 98.2 F 62 18 102/73 98 Cardiovascular RRR, no murmur, no edema Respiratory normal respiratory effort, lungs clear to auscultation Pre-Sedation Airway Assessment Smoking Status: Former smoker Hx Sleep Apnea: Yes Hx Difficult Intubation: No Short, Thick Neck: No Thyromental Distance: > or= 3.5 Finger Breadths Oral Cavity: + WNL Mallampati Class: II ASA: ASA2 NPO Status Date of Last Intake of Fluids: 12/02/19 Time of Last Intake of Fluids: 07:30 Date of Last Intake of Solid Food: 12/02/19 Time of Last Intake of Solid Foods: 07:30 Procedure Planning Contraindications for Sedation: none Current Medications Reviewed: Yes Notes The planned sedation has been discussed with the patient. Informed Consent was obtained. I have identified the patient, determined the appropriateness of sedation and have assessed the patient immediately prior to the procedure. All medicine(s) and interventions are by my order.
--- NOTE | 2019-12-02 13:50 | Post Anesthesia Assessment ---
Date of Service December 02, 2019 Post Sedation Assessment Vital Signs Temp Pulse Pulse Resp BP BP Pulse Ox 12/02/19 13:05 60 20 131/83 97 12/02/19 07:41 97.5 F L 58 L 19 124/80 95 12/02/19 04:59 62 16 94 12/02/19 03:36 98.1 F 68 18 131/83 95 12/02/19 01:02 69 14 98 12/02/19 00:00 98.1 F 76 18 136/76 96 12/01/19 23:33 67 16 96 12/01/19 23:00 64 12/01/19 19:47 98.1 F 65 18 123/73 95 12/01/19 18:35 140/78 98 12/01/19 18:30 62 117/74 98 12/01/19 18:28 65 16 114/74 12/01/19 18:21 60 130/75 94 12/01/19 18:15 61 15 111/76 96 12/01/19 18:10 60 116/73 95 12/01/19 18:05 60 17 128/105 H 93 12/01/19 18:00 65 20 115/76 12/01/19 17:55 120/75 94 12/01/19 17:50 118/77 93 12/01/19 17:45 62 113/80 92 12/01/19 17:40 60 13 151/78 H 93 12/01/19 17:35 57 L 16 165/78 H 91 12/01/19 17:30 55 L 10 L 161/83 H 91 12/01/19 17:25 56 L 17 163/89 H 97 12/01/19 17:15 63 17 131/80 99 12/01/19 17:04 61 19 129/87 97 12/01/19 17:00 61 13 142/86 H 98 12/01/19 16:59 59 L 11 L 140/87 96 12/01/19 16:40 178/164 H 12/01/19 16:30 68 21 167/99 H 99 12/01/19 16:27 98 12/01/19 16:21 98.2 F 62 18 102/73 98 Recovery Score Activity: Moves 4 extremities Respiration: Deep Breath/Cough Circulation: +/-20% PreAnes Value Consciousness: Fully Awake Oxygen Saturation: O2 needed for >90% Discharge Sedation Level of Care: Fast Track Phase II Post Sedation Plan On clinical assessment, the patient appears to have tolerated the sedation without complications. Patient is recovering as anticipated. Patient will continue to be monitored by nursing and may be discharged when sedation discharge criteria are met per below protocol. Upon Completions of procedure up to 15 minutes continue every 5 minute vital signs and the P.A.R. score; then discharge to a Phase I or Fast Track to Phase II per the following guidelines: * Discharge Patient to appropriate Phase II area if PAR is 8 or greater or return to pre- procedure baseline. The post - procedure orders will be as directed. * If PAR score is less than 8 or not return to pre-procedure baseline then patient will follow Phase I monitoring till PAR is reached for Phase II. The Phase I may be done in procedure room or may call to secure a Phase I area. * If naloxone or flumazenil are used for reversal, hold in Phase I for continued monitoring from when last reversal dose was given for a minimum of 60 minutes or longer pending the nurse and/or physician discretion of patient condition before discharge to Phase II. Please call the Sedation Physician to re-evaluate and complete post-note for discharge to Phase II area. Do NOT discharge from procedure sedation or Phase 1 until post- sedation evaluation note is complete by procedure /sedation MD Sedation Discharge Instructions to be given to the patient at discharge to home.
--- NOTE | 2019-12-02 13:57 | Cardiac Catheterization ---
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 Cardiac Status Clinical evaluation leading to the procedure CAD Presenation: Positive Stress Test Anginal Classification: CCS III Heart Failure: No Cardiogenic Shock within 24 Hours: No Cardiac Arrest within 24 Hours: No Imaging Studies Past 6 Months: Yes Stress Studies Past 6 Months: Yes Stress Echocardiogram: Yes - Indeterminant Diagnostic Physicians Name: Cliff Dillon MD Status: Elective Closure Device Percutaneous Entry Location: Radial Closure Device: Radial Band Recommendations: Medical Therapy and/or Counseling Intraprocedure Events Significant Disection: No Perforation: No Cardiac Cath Procedure Full Procedure Date December 02, 2019 Pre-Procedure Diagnosis Pre-Procedure Diagnosis: Angina and Positive Stress Test AUC Score AUC Score: 7 Post-Procedure Diagnosis Post-Procedure Diagnosis: Mild CAD Procedure(s) Performed Procedure(s) Performed: Coronary Angiography and Left Heart Cath Assignment Desk Editor Cliff Dillon MD [place] Pumper(s) Kal Estimated Blood Loss Estimated Blood Loss: 5 Medication(s) Medication(s): Fentanyl, Heparin, Lidocaine 1%, Nicardipine, Nitroglycerin and Versed Summary of Findings Indication: Abnormal stress test, chest pain Access: 6 Fr slender right radial artery Catheters: [place] Findings: LM -Short, no significant disease LAD -large caliber vessel, 20 to 30% mid segment disease. Distal vessel tapers to apex. First and second diagonal without significant disease Circumflex -large caliber vessel, mid segment luminal irregularities. OM 2, OM 3 without significant disease. RCA -dominant, large caliber vessel, mid segment luminal irregularities. Right PDA without significant disease LVEDP -6 Arterial Closure: TR band Summary: 1. Minimal nonobstructive coronary artery disease -20 to 30% mid LAD disease 2. Normal intracardiac filling pressure Recommendations: Continued ASCVD risk factor modification per Dr. Corona Hemodynamics Rest Ao:: 107/70/87 Final Ao: 115/66/88 LV: 110/6 Recommendations Recommendations: Medical Therapy and/or Counseling Specimens Specimens: None Radiation Exposure (mGy) 1200 Contrast (mls) 45 Fluids (cc crystalloids) Fluids (cc crystalloids): 45 Drains Drains: None Anesthesia Moderate Procedural Complication(s) None Disposition PCU I attest to the content of the Intraoperative Record and any orders documented therein. Any exceptions are noted below. XinrongG Card Cath Procedure Codes Cardiac Catheterization Procedure 1: Cardiovascular Cath Procedures: 13445 Coronaries and LHC (+/-LV) Moderate Sedation Procedure 1: Sedation/Anesthesia: 73238 Mod Sedation by the same physician;Init15 Min Child Age 5 & Up PG Care Time/CCT Total # of Minutes Spent Total Time Spent with Patient: Total time spent is greater than 50% in coordination of care (as documented) at patient's floor/unit and/or counseling patient:
--- NOTE | 2019-12-02 14:49 | Electrocardiogram Report ---
Test Reason : Blood Pressure : / mmHG Vent. Rate : 063 BPM Atrial Rate : 063 BPM P-R Int : 166 ms QRS Dur : 082 ms QT Int : 438 ms P-R-T Axes : 029 009 040 degrees QTc Int : 448 ms Poor data quality, interpretation may be adversely affected Normal sinus rhythm Normal ECG When compared with ECG of 16-FEB-2014 21:19, QT has lengthened Confirmed by Gaudencio Urban ([id number]) on 12/02/2019 2:49:00 PM Referred By: REFERRED SELF Confirmed By:Gaudencio Urban
--- NOTE | 2019-12-02 14:51 | Electrocardiogram Report ---
Test Reason : Blood Pressure : / mmHG Vent. Rate : 060 BPM Atrial Rate : 060 BPM P-R Int : 140 ms QRS Dur : 086 ms QT Int : 438 ms P-R-T Axes : 019 012 054 degrees QTc Int : 438 ms Poor data quality, interpretation may be adversely affected Normal sinus rhythm Normal ECG When compared with ECG of 01-DEC-2019 16:16, (unconfirmed) No significant change was found Confirmed by Gaudencio Urban ([id number]) on 12/02/2019 2:51:03 PM Referred By: REFERRED SELF Confirmed By:Gaudencio Urban
--- NOTE | 2019-12-02 16:12 | Communication Note ---
Date of Service: December 02, 2019 Patient reassessed status post cardiac catheterization. No culprit stenosis identified, 2030% mid LAD stenosis that is felt to be significant enough to cause anginal symptoms or shortness of breath. Ongoing risk factor treatment including his current hypertensive regimen and atorvastatin therapy is recommended. On further discussion, his spouse does tell me that he had a viral respiratory illness that lasted approximately 2 months in the late fall, into October, and perhaps his respiratory complaints may be due to deconditioning. Once patient finishes his post cardiac catheterization recovery progression, if he does well, he will be stable for discharge from a cardiac perspective, unless the hospital service has additional work-up planned.
--- NOTE | 2019-12-02 17:30 | Discharge Summary ---
Date of Service December 02, 2019 Admission HPI Per Admitting Provider 64 y/o M c/o chest pain. Pt states that he bent over to tie his shoe around 2:30-3p today and had sudden onset of severe chest pain. He sat up and this resolved. He bent over again and it returned. He sat up again, but this time it did not resolve. His moved him to lie down and he developed L UE pain. He did have some mild SOB with this as well. He was slightly nauseated, but no emesis. 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 He worked both Monday and Monday nights and noted some SOB when walking from his car to work. He did not have pepe chest pain with this, but did feel some chest pressure. It resolved and he was able to work without issue. He has never had chest pain like this in the past. Pt denies fever, abd pain, n/v/c/d, LE pain. He does get LE swelling if he is on his feet for long periods, but none today. Pt was given aspirin and nitro by EMS and is currently chest pain free. Pt became unresponsive while in the CT machine. He states he has severe claustrophobia and so was keeping is eyes closed in the machine. He does remember being told that "my IV blew out" and that they were going to clean him up. That is the last thing he remembers. When he came back, states pt was "out of it" and was difficult to arouse. He did not recognize her at first. He was given ativan 1mg and this resolved. He is back to his usual mentation per himself and family. Pt reports a neg stress test 08/2019. He follows with Dr. Lou for aortic root dilation and sees him [id number]. Principal Diagnosis Pt is doing much better. 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 No SOB. He was not able to tolerate stress ECHO due to chest pain, so he underwent a cath, which was neg. No issues s/p cath. Tolerating PO without issue. Diet is full of high acid foods. He drinks several cups of coffee daily. His states he will go through a 100 pod [employer] pack in about 2 weeks. He is chewing 2 cans of snuff a week. He eats chocolate throughout the day and a lot of pineapple and orange juice. Pt denies fever, abd pain, n/v/c/d, LE pain or swelling. Discharge Exam Constitutional WD/WN, vitals as above Eyes normal visual lacy by confrontation and + anicteric sclerae Neck normal visual inspection and trachea midline Respiratory normal respiratory effort, lungs clear to auscultation Cardiovascular Rate/Rhythm: regular rate and regular rhythm Gastrointestinal (Abdomen) Inspection/Auscultation: abdomen not distended Percussion/Palpation: abdomen soft; abdomen nontender Musculoskeletal Head/Neck/Chest: normocephalic and head atraumatic Skin no rashes, warm and dry Neurologic awake; not confused Speech / Cognition: normal speech Psychiatric A+Ox3, euthymic affect Discharge Data Allergies Allergy/AdvReac Type Severity Reaction Status Date / Time acetaminophen AdvReac Unknown IRRITABLE Verified 12/01/19 17:08 hydrocodone AdvReac Unknown IRRITABLE Verified 12/01/19 17:08 Consultations 12/01/19 18:13 ED Decision to Admit Stat 12/01/19 18:45 ED Decision to Admit Stat 12/02/19 10:48 Consult Cardiology Routine Procedures Performed Operation Date: 12/02/19 14:00 Actual Procedures p Cath, Left with Cors and Vent - Agapito Dillon MD s Cineradiography w/Routine Exam - Agapito Dillon MD Ordered Studies 12/01/19 16:23 CT angio chest dissec wo/w con Stat 12/02/19 13:15 CL Cath Imgs for PACS use only Routine Hospital Course (1) Chest pain: r/o ACS Trop neg x3 EKG WNL CXR, CTA neg for acute CBC, PRP WNL Lipids WNL with LDL 58 and HDL 35 Neg stress test 08/2019 per pt but given new sx was repeated Unable to complete due to chest pain Cath was neg for major vessel disease GI cocktail was not given Pt developed mild chest pain during discussion while he was eating Also noted that he had been ill with some sort of URI/cough, etc about 1 week prior that required tx from PCP It is possible that pt's sx are more GERD related. As noted above, he drinks a very large amount of coffee daily, heavy chocolate use, heavy chewing tobacco use which could all cause uncontrolled GERD Discussed at length with pt and family, he is going to work on decreasing use May need t/c outpt EGD if ongoing sx (2) Altered level of consciousness: Possibly PTSD reaction given resolution with ativan No recurrence continue home meds (3) Aortic root dilation: Stable as per CTA Follows with Dr. Lou (4) Hyperlipidemia: continue home meds (5) HTN (hypertension): continue home meds (6) Moderate obstructive sleep apnea: CPAP (7) Anxiety: with PTSD and depression continue home meds (8) Smokeless tobacco use: Gave info for [place] QuitLine Pt does use this to help with PTSD but advised it is likely contributing to GERD (9) DVT prophylaxis: Ambulation Total Time Total Time Spent Total Time Spent (In Minutes): >30 Total Time Includes: Examination of the Patient, Discharge Planning, Medication Reconciliation, Communication With Other Providers and Other Discharge Plan Discharge Items Patient Disposition: Home - Self-Care Reason For Visit: CHEST PAIN Discharge Diagnosis: Chest pain, noncardiac Activity: Resume your previous activity Non-emergency contact: Primary Care Provider and Water Inspector Call non-emergency contact if: you have any medication questions, your symptoms worsen, your pain is not controlled and your pain is worsening Follow-up/Referrals: Michael Aviles MD [Primary Care Provider] - Diet: Heart Healthy Addtl Attending Provider Instructions: You should follow up with Dr. Aviles's office on Monday as you have scheduled prior. You should likely have an EGD. They can help you arrange that at that time. You should follow up with Dr. Lou in 2 weeks. The pain you are having does not appear to be related to your heart. There is a good chance it is more related to your diet given the high amounts of coffee, chocolate, and citrus juices that you consume, in addition to your chewing tobacco use. You do not have to completely eliminate these items, but you should try to cut down on them to decrease the symptoms you are having. The [place] Quit Line is a great resource for smoking and chewing tobacco cessation. It is free to [place] residents. The number is 282-QEUO-TKC. This is a 24/ service. Pending Studies at Discharge: No Stand-Alone Forms: Call Back Authorization, My [facility], Smoking Cessation Medications and DC Order Prescriptions: New aspirin [Ecotrin Low Strength] 81 mg Tablet,Delayed Release (Dr/Ec) 81 mg PO QAM Qty: 30 RF: 0 prednisolone acetate 1 % Drops,Suspension 2 drp ophthalmic (eye) DAILY 30 Days Qty: 60 RF: 1 ranitidine HCl 150 mg capsule 150 mg PO DAILY Qty: 30 RF: 1 Continued lisinopril-hydrochlorothiazide 10-12.5 mg tablet 1 tab PO DAILY Qty: 90 RF: 3 escitalopram oxalate 20 mg tablet 20 mg PO DAILY Qty: 90 RF: 3 bupropion HCl 150 mg tablet sustained-release 12 hr 150 mg PO BID Qty: 180 RF: 1 benzonatate 200 mg capsule 200 mg PO TID PRN (Reason: cough) Qty: 30 RF: 1 fluticasone propionate [Flonase Allergy Relief] 50 mcg/actuation spray,suspension 1 sprays INTNAS UD RF: 0 atorvastatin 10 mg tablet 10 mg PO DAILY RF: 0 amlodipine 2.5 mg tablet 2.5 mg PO QPM Qty: 30 RF: 0 multivitamin [Daily Multi-Vitamin] tablet 1 tab PO DAILY RF: 0 clonazepam 0.5 mg tablet 0.5 mg PO QPM PRN (Reason: Anxiety) RF: 0 Discharge Orders: Discharge Order (Routine); Ordered 12/02/19 Ordered By: Rissa Parra Admission Data Admit Date/Time: 12/01/19 18:51 Attending Provider: Rissa Parra Admit Provider: Rissa Parra Primary Care Provider: Michael Aviles Other Providers: Rissa Parra ; Renny Corona Other Interventions: Discharge Summary Assessment (RN) Last Done: 12/02/19 17:54 DC Date/Time DO NOT enter until pt leaves facility: 12/02/19 18:28
[2019-12-03] MEDS ORDERED: prednisoLONE acetate 1% OP SUSP 5 ML BTL OP SCH (09:00)
[2019-12-03] MEDS ORDERED: ASPIRIN 81 MG ECTAB PO SCH (09:00)
== END 2019-12-02 18:28 | disposition home or self-care (01) ==
LOC: ED 16:05 → 2S 16:05

== ENCOUNTER 2021-02-09 10:24 | Observation (INO) ==
--- NOTE | 2021-01-12 15:05 | PAT Medication Instructions ---
Medication Instructions Date of Service January 12, 2021 Home Medications Medication Instructions Recorded bupropion HCl 150 mg tablet,12 hr 150 mg PO BID #180 ea 11/30/20 sustained-release atorvastatin 10 mg tablet 10 mg PO QAM lisinopril-hydrochlorothiazide 1 tab PO QAM prednisolone acetate 2 drp OPHTHALMIC (EYE) QAM escitalopram oxalate [Lexapro] 20 mg PO QAM amlodipine 10 mg tablet 10 mg PO QAM bupropion HCl 150 mg tablet,12 hr sustained-release 150 mg PO BID acetaminophen [Tylenol] 325 mg PO QID PRN aspirin [Ecotrin Low Strength] 81 mg PO Q2D naproxen [Naprosyn] 250 mg PO BID PRN Continue as directed aspirin [Ecotrin Low Strength] 81 mg PO Q2D ASK your surgeon for instructions naproxen [Naprosyn] 250 mg PO BID PRN DO NOT take the morning of surgery lisinopril-hydrochlorothiazide 1 tab PO QAM Take morning of surgery With a small sip of water, OTHERWISE NOTHING TO EAT OR DRINK AFTER MIDNIGHT: atorvastatin 10 mg tablet 10 mg PO QAM prednisolone acetate 2 drp OPHTHALMIC (EYE) QAM escitalopram oxalate [Lexapro] 20 mg PO QAM amlodipine 10 mg tablet 10 mg PO QAM bupropion HCl 150 mg tablet,12 hr sustained-release 150 mg PO BID acetaminophen [Tylenol] 325 mg PO QID PRN (if needed, may be taken up to four hours before surgery) Take evening before surgery bupropion HCl 150 mg tablet,12 hr sustained-release 150 mg PO BID acetaminophen [Tylenol] 325 mg PO QID PRN (if needed) Other Notes If you have any questions please call us at [phone] or [phone] or [phone] or [phone]
--- NOTE | 2021-01-14 11:35 | Anesthesiology Consultation ---
Date of Service January 14, 2021 Assessment & Plan (1) Encounter for pre-operative examination: COVID Status: As of 01/14 assessment, patient denies travel to endemic area, known exposure/sick contacts, or symptoms of COVID19. Patient instructed that they and their household members must follow strict social distancing guidelines, wear a mask in public and avoid travel/events/gatherings for 14 days prior to surgery. Preoperative COVID19 testing to be completed prior to surgery per surgeon's arrangements. Patient made aware to self-isolate as much as possible between COVID testing and surgery. Chart Review Chart Review: Acceptable Risk for Surgery and Patient seen in Pre Admission Testing Teaching & Discussion Instructed NPO after midnight before surgery, except medications with 15 cc of water. Medication instructions provided according to the PAT guidelines. History Surgery Operation Date: 02/09/21 10:55 Proposed Procedures p Right Total Knee Arthroplasty - Renny Warren MD Height/Weight Height: 5 ft 10 in Weight: 110.6 kg Allergies Allergy/AdvReac Type Severity Reaction Status Date / Time acetaminophen AdvReac Unknown IRRITABLE Verified 01/07/21 12:04 hydrocodone AdvReac Unknown IRRITABLE Verified 01/07/21 12:04 Medications Home Medications Medication Instructions Recorded Confirmed Last Taken atorvastatin 10 mg tablet 10 mg PO QAM tab 09/13/19 01/07/21 08/13/20 04:30 lisinopril-hydrochlorothiazide 1 tab PO QAM 08/04/20 01/07/21 08/12/20 08:00 prednisolone acetate 2 drp OPHTHALMIC (EYE) QAM 08/04/20 01/07/21 08/12/20 08:00 escitalopram oxalate [Lexapro] 20 mg PO QAM 08/13/20 01/07/21 08/13/20 04:30 amlodipine 10 mg tablet 10 mg PO QAM 11/12/20 01/07/21 Unknown bupropion HCl 150 mg tablet,12 hr 150 mg PO BID #180 ea 11/30/20 01/07/21 Unknown sustained-release acetaminophen [Tylenol] 325 mg PO QID PRN 01/07/21 01/07/21 Unknown aspirin [Ecotrin Low Strength] 81 mg PO Q2D 01/07/21 01/07/21 Unknown naproxen [Naprosyn] 250 mg PO BID PRN 01/07/21 01/07/21 Unknown Past Medical History Medical History (Updated 01/14/21 @ 11:41 by Rogerio Pantoja) Anxiety Aortic root dilation Mild dilation root of the aorta 4.25cm Arthritis cervical, knees CAD (coronary artery disease) Minimal nonobstructive coronary artery disease 20-30% mid LAD disease per 11/2019 cardiac cath Depression History of esophageal reflux HTN (hypertension) Hyperlipidemia Moderate obstructive sleep apnea CPAP, pt reports uses it every night Obesity PTSD (post-traumatic stress disorder) Reactive depression (situational) Seborrheic keratosis Spinal stenosis Exercise / Class Metabolic Activity II 4-5 Yardwork/Stairs/Walk up hill Past Family History Family History Mother Myocardial infarction Diabetes Brother Myocardial infarction Other ASCVD (arteriosclerotic cardiovascular disease) Denies family history of Ovarian cancer Prostate cancer Breast cancer Lung cancer Colorectal cancer Past Surgical History Surgical History (Updated 01/14/21 @ 11:41 by Rogerio Pantoja) H/O shoulder surgery R side RCR History of back surgery lumbar fusion History of cardiac cath 11/2019- nonobstructive disease History of cataract surgery right and left History of colonoscopy History of corneal transplant History of hemorrhoidectomy History of knee surgery LEFT X 2 History of sinus surgery History of surgery anal fistulectomy History of tonsillectomy Past Anesthesia History No Hx of Anesthesia Complications and No Family Hx of Anesthesia Complications History of PONV No Hx of PONV and No Hx of Motion Sickness Social History Smoking Status: Never smoker Do You Dip or Chew Tobacco: Yes ("herbal", advised none AM DOS) Hx Alcohol Use: Yes Alcohol type: beer alcohol intake frequency: holidays/special occasions only Hx Substance Use: No substance use type: does not use Review of Systems Pt denies any recent chest pain, shortness of breath, palpitations, cough, fever, URI, or uncontrolled acid reflux (mostly controlled). Physical Exam Vital Signs BP: 161/86, Rpt 149/80. Pt reports both of these readings are very high for him. P: 64bpm SPO2: 98% RA T: 98.8 F R: 16 ENMT Mouth: + dental restorations (one crown upper R rear molar); no chipped teeth and no loose teeth Thyromental Distance: > or= 3.5 Finger Breadths Mallampati Class: III Neck + thick neck; neck extension not limited Respiratory normal respiratory effort, lungs clear to auscultation Cardiovascular RRR, no murmur, no edema Testing Laboratory Results 01/14/21 11:54 01/14/21 11:54 PT 10.3 Seconds (9.0-12.0) 01/14/21 11:54 INR 1.0 (0.9-1.1) 01/14/21 11:54 APTT 26.1 Seconds (21.0-31.0) 01/14/21 11:54 Blood Type O Positive 01/14/21 11:54 Antibody Screen NEGATIVE 01/14/21 11:54 Electrocardiogram Date: 05/27/20 Findings: + SB @ (55bpm) and + no change from (2018) Chest X-Ray Date: 01/14/21 Findings: + NAD Echocardiogram Date: 12/07/20 EF: 55-59% Mild concentric LVH. Grade 1 diastolic dysfunction of the left ventricle. Mild aortic valve regurgitation. Mild mitral and tricuspid regurgitation. The aortic root is mildly enlarged at 4.4 cm. The ascending aorta is moderately enlarged at 4.7 cm. Compared to prior study of 04/05/2019 there is no significant change. Cardiac Catheterization Date: 12/02/19 Summary: 1. Minimal nonobstructive coronary artery disease -20 to 30% mid LAD disease 2. Normal intracardiac filling pressure Recommendations: Continued ASCVD risk factor modification per Dr. Corona
--- NOTE | 2021-01-14 12:13 | XRay Report ---
XR chest Pre-admission PA/Lat HISTORY: 65 years-old Male pat preoperative exam. No acute chest complaints COMPARISON: Chest radiograph 12/01/2019 TECHNIQUE: PA and lateral views of the chest FINDINGS: Cardiomediastinal and hilar silhouettes are within normal limits. No pneumothorax, pleural effusion, airspace consolidation or overt pulmonary edema. Bones appear intact. IMPRESSION: No acute process. ACT 112: Negative or not required by law. The above report was generated using voice recognition software. It may contain grammatical, syntax o r spelling errors. Electronically signed by: Thor Ponce M.D. 01/14/2021 12:11 PM
[2021-01-14 13:11] LABS: Basophils # (auto) 0.02 K/uL (0-0.2); Basophils % (auto) 0.3 %; Eosinophils % (auto) 3.2 %; Hematocrit (blood only) 40.8 % (42-52); Hemoglobin 13.4 g/dL (14.0-18.0); Immature Granulocytes # (auto) 0.02 K/uL (0.00-0.02); Immature Granulocytes % (auto) 0.3 %; Lymphocytes # (auto) 1.89 K/uL (1.2-3.4); Lymphocytes % (auto) 29.9 %; Mean Corpuscular Hemoglobin 30.7 pg (25-34); Mean Corpuscular Hgb Conc 32.8 g/dL (32-36); Mean Corpuscular Volume 93.4 fL (80-100); Mean Platelet Volume 10.8 fL (7.4-10.4); Monocytes # (auto) 0.55 K/uL (0.11-0.59); Monocytes % (auto) 8.7 %; Neutrophils # (auto) 3.65 K/uL (1.4-6.5); Neutrophils % (auto) 57.6 %; Platelet Count 234 K/uL (130-400); RDW Coefficient of Variation 14.4 % (11.5-14.5); RDW Standard Deviation 49.3 fL (36.4-46.3); Red Blood Count 4.37 M/uL (4.7-6.1); White Blood Count 6.33 K/uL (4.8-10.8)
[2021-01-14 13:25] LABS: Partial Thromboplastin Time 26.1 Seconds (21.0-31.0); Prothrombin Time 10.3 Seconds (9.0-12.0)
[2021-01-14 14:31] LABS: BUN Creatinine Ratio 15.9 (10-20); Blood Urea Nitrogen 19 mg/dl (7-18); C Reactive Protein < 0.29 mg/dl (0-0.29); Calcium 9.2 mg/dl (8.5-10.1); Carbon Dioxide 28 mmol/L (21-32); Chloride 106 mmol/L (98-107); Creatinine Clr Calc Pharmacy 78.8 ml/min; Est GFR (African American) 75.1; Est GFR (Non-African American) 64.8; Glucose 93 mg/dl (70-99); Sodium 141 mmol/L (136-145)
--- NOTE | 2021-02-05 19:57 | History and Physical Report ---
DATE OF ADMISSION: 02/09/2021 CHIEF COMPLAINT: Right knee pain and discomfort. HISTORY OF PRESENT ILLNESS: A 65-year-old gentleman who presents for surgical treatment of his right knee. He has got a year history of right knee pain and discomfort and had his knee scoped by Dr. Ramon back on 08/13 of last year. He initially recovered from this okay, but has had some repeat injuries and never recovered from these. He has developed increased pain, discomfort and swelling in his knee and leg. He has been through extensive conservative treatment including multiple aspirations and injections, which only helped him for a couple days at most. X-rays showed progressive hip arthritis, particularly in the medial compartment of his right knee. He has had an extensive workup including ultrasound, which was negative for DVT. 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 He has been miserable with this. He cannot walk any distance. He has got pain all the time. He would like to have his right knee definitively fixed. PAST MEDICAL HISTORY: 1. Aortic enlargement. 2. Hypertension. 3. Sleep apnea with CPAP machine. 4. Anxiety/depression. 5. Back pain. PAST SURGICAL HISTORY: Includes, 1. Right knee arthroscopy on 08/13/2020. 2. Back surgery. 3. Right shoulder surgery. 4. Left knee surgery. 5. Pain clinic injections. ALLERGIES: None. CURRENT MEDICINES: Include, 1. Amlodipine 10 mg. 2. Aspirin 81 mg a day. 3. Atorvastatin 10 mg. 4. Bupropion 150 mg twice a day. 5. Lexapro 20 mg. 6. Lisinopril/hydrochlorothiazide once a day. 7. Celebrex. SOCIAL HISTORY: Significant for a 65-year-old male. He is . Does not smoke. FAMILY HISTORY: Noncontributory. REVIEW OF SYSTEMS: Negative for diabetes, neurologic problem, vascular problems or bleeding disorders. No history of DVT or PE. No known bleeding problems. PHYSICAL EXAMINATION: GENERAL: Shows a pleasant, middle-aged male, looks to be in pretty good health. HEENT: Benign. NECK: Supple, no lymphadenopathy. LUNGS: Clear to auscultation. HEART: Has a regular rate and rhythm. ABDOMEN: Soft, nontender, nondistended. EXTREMITIES: Grossly neurovascularly intact except as follows: Examination of the right knee reveals the patient walks with a markedly antalgic gait. He limps on this right side. He has got varus alignment to his knee. He has got a small knee effusion. He is tender over the medial joint line. He does have a little bit of swelling in his calf posteriorly consistent with a Vo cyst. Range of motion is about 5 degrees short of full extension to 120 degrees of flexion. There is no instability. X-RAYS: X-rays of the right knee were reviewed. They show advanced medial compartment arthritis. It shows progressive loss of his medial joint space over the past year. ASSESSMENT: A 65-year-old male with multiple medical comorbidities including obesity with a body mass index of 35, hypertension, sleep apnea, anxiety/depression, now 6 months out from a knee arthroscopy with persistent pain, discomfort and disabling pain. He really would like to have his right knee fixed. PLAN: We are going to take him to the operating room and do a right total knee replacement. The risks and benefits of this procedure were explained to the patient including but not limited to DVT, PE, , infection, neurological injury, vascular injury, bleeding problem, pain, limited range of motion, stiffness, failure to relieve his symptoms, incomplete relief of symptoms, need for further surgery in the future, fracture, leg length inequality, nerve palsy, etc. The patient understands and desires to proceed. Informed consent was obtained. I did talk to him about bringing his CPAP to the hospital. He should hold his lisinopril and hydrochlorothiazide on the morning of surgery. I did talk to him about the much larger nature of this surgery and the more difficult recovery than the knee arthroscopy and he is fully aware of this. As far as discharge plans, he is planning to be discharged to home using [facility] home health program.
[~2021-02-09 10:24] MED LIST changes: +ACETAMINOPHEN 500 MG TAB PO SCH; -AMLO2.5T PO; +BUPIVACAINE 0.25% 30 ML VIAL ONE; +BUPIVACAINE 0.5 % 5 MG/1 ML PF 10ML VIAL ONE; +BUPIVACAINE LIPOSOME/PF 266 MG, BUPIVACAINE/EPINEPHRINE 50 ML, SODIUM CHLORIDE 0.9% 30 ... INFIL SCH; +FAMOTIDINE 20 MG TAB PO SCH; +GABAPENTIN 600 MG DOSE PO SCH; +LR 500ML BOLUS, THEN 15ML/HR IV SCH; +LR 60ML/HR IV SCH; -LSN/10125 PO; -MULT-506 PO; -OMEP40CA PO; -PRED1SUS17 OP; -RXC5 PO; +Scopolamine 1 MG TDSY TD SCH; +TRANEXAMIC ACID 1,000 MG **IV Intra-op IV SCH; +ceFAZolin 2000MG 2,000 MG/15 ML SYR IV SCH
--- NOTE | 2021-02-09 10:59 | History & Physical Bridge Note ---
Date of Service February 09, 2021 History & Physical Bridge Note I have examined the patient, reviewed the History & Physical and in the interval since the performance of the History & Physical I have noted the following changes of clinical significance: no changes noted
[2021-02-09] MEDS ORDERED: MIDAZOLAM HCL 1 MG/ML 2ML VIAL ONE (12:20)
[2021-02-09] MEDS ORDERED: fentaNYL citrate 100 MCG/2 ML VIAL ONE (12:20)
[2021-02-09] MEDS ORDERED: ONDANSETRON INJ 2 MG/ML 2 ML VIAL IV PRN ×2 (12:47→16:55)
[2021-02-09] MEDS ORDERED: fentaNYL citrate 100 MCG/2 ML VIAL IV PRN (12:47)
[2021-02-09] MEDS ORDERED: ePHEDrine sulfate 50 MG/ML AMP IV PRN (12:47)
[2021-02-09] MEDS ORDERED: ATROPINE SULFATE 0.1 MG/ML 10ML SYR IV PRN (12:47)
[2021-02-09] MEDS ORDERED: BUPIVACAINE LIPOSOME 1.3% 266 MG/20 ML VIAL ONE (13:13)
[2021-02-09] MEDS ORDERED: SODIUM CHLORIDE 0.9% PF 50 ML VIAL ONE (13:13)
[2021-02-09] MEDS ORDERED: BUPIVACAINE 0.25% 30 ML VIAL ONE (13:14)
[2021-02-09] MEDS ORDERED: EPINEPHrine INJ 1 MG/ML AMP ONE (13:14)
[2021-02-09] MEDS ORDERED: BACITRACIN INJ 50,000 UNIT VIAL ONE (13:14)
[2021-02-09] MEDS ORDERED: VANCOMYCIN HCL 1000MG/20ML VIAL ONE (13:37)
[2021-02-09] MEDS ORDERED: ePHEDrine sulfate 50 MG/ML SYR ONE (13:58)
[2021-02-09] MEDS ORDERED: ONDANSETRON INJ 2 MG/ML 2 ML VIAL ONE (14:03)
[2021-02-09] MEDS ORDERED: PROPOFOL IV EMULSION 10 MG/ML 20 ML VIAL IV ONE (14:03)
--- NOTE | 2021-02-09 15:24 | Post Operative Brief Note ---
PG Immediate Post Op with CF Date of Surgery February 09, 2021 Pre & Post Diagnosis Operation Date: 02/09/21 12:30 Pre-Op Diagnosis: Right Knee Degenerative Joint Disease Post-Op Diagnosis: Right Knee Degenerative Joint Disease I identified the patient and participated in the time-out.: Yes Procedure Operation Date: 02/09/21 12:30 Actual Procedures p Right Total Knee Arthroplasty, Cemented(Right) - Renny Warren MD Surgeon Renny Warren MD Clinical Analyst TAMAR Garcia Estimated Blood Loss 50 Findings Consistent with Post-Op Diagnosis Fluids 1400 Specimens Specimen Description: Permanent Specimen A: Right knee bone and tissue Drains Armenta Catheter Anesthesia Type Spinal MAC Complications none Disposition Accompanied Patient To Recovery: No Disposition: Recovery Room
--- NOTE | 2021-02-09 15:38 | XRay Report ---
RIGHT KNEE 2 VIEWS History: Right total knee arthroplasty. Degenerative arthritis. Postop. FINDINGS: The patient is status post a right total knee arthroplasty. The hardware is intact. No frac ture or dislocation. Skin chelly are in place. IMPRESSION: Right total knee arthroplasty. No evidence for hardware complication. ACT 112: Negative or not required by law. Electronically signed by: Hong Alfonso M.D. 02/09/2021 3:36 PM
--- NOTE | 2021-02-09 16:13 | Anesthesiology Progress Note ---
Date of Service February 09, 2021 Anesthesia Post Procedure Vital Signs Vital Signs: Temp Pulse Pulse Resp BP BP Pulse Ox 02/09/21 16:05 54 L 16 106/63 94 02/09/21 15:55 56 L 16 104/57 L 94 02/09/21 15:45 56 L 17 110/58 L 95 02/09/21 15:35 55 L 12 108/65 97 02/09/21 15:26 36.2 C L 58 L 14 97/56 L 96 02/09/21 10:45 37 C 64 18 131/80 97 Pain Intensity Bilateral Knee: Pain Intensity: 5 Transfer of Care Handoff Completed per policy Notes Mental Status: alert / awake / arousable and participated in evaluation Patient Amnestic to Procedure: Yes Nausea / Vomiting: adequately controlled Pain: adequately controlled Airway Patency, RR, SpO2: stable & adequate BP & HR: stable & adequate Hydration State: stable & adequate Anesthetic Complications: no major complications apparent
[2021-02-09] MEDS ORDERED: ALUMINUM/MAGNESIUM SUSP 30 ML UDC PO PRN (16:55)
[2021-02-09] MEDS ORDERED: METOCLOPRAMIDE HCL INJ 5 MG/ML 2 ML VIAL IV PRN (16:55)
[2021-02-09] MEDS ORDERED: MAGNESIUM HYDROXIDE SUSP 30 ML UDC PO PRN (16:55)
[2021-02-09] MEDS ORDERED: HYDROmorphone INJ 0.5 MG/0.5 ML SYR IV PRN (16:55)
[2021-02-09] MEDS ORDERED: bisacodyL 10 MG SUPP PR PRN (16:55)
[2021-02-09] MEDS ORDERED: diphenhydrAMINE Capsule 25 MG CAP PO PRN (16:55)
[2021-02-09] MEDS ORDERED: NALOXONE HCL 0.4 MG/1 ML VIAL/CARP IV PRN (16:55)
[2021-02-09] MEDS ORDERED: TAMSULOSIN HCL 0.4 MG CAP PO PRN (16:55)
[2021-02-09] MEDS: SODIUM CHLORIDE 0.9% 1000ML 1,000 ML IV SCH ×2 (18:06→23:31)
[2021-02-09] MEDS: FERROUS GLUCONATE 324 MG TAB PO SCH (18:06)
[2021-02-09] MEDS: Scopolamine CHECK PATCH PLACEMENT SCH ×2 (18:06→23:31)
[2021-02-09] MEDS: ASCORBIC ACID 500 MG TAB PO SCH (18:07)
[2021-02-09] MEDS: KETOROLAC 30 MG/ML VIAL IV SCH ×2 (18:07→23:31)
--- NOTE | 2021-02-09 18:22 | Operative Report ---
Post Operative Report Pre & Post Diagnosis Operation Date: 02/09/21 12:30 Pre-Op Diagnosis: Right Knee Degenerative Joint Disease Post-Op Diagnosis: Right Knee Degenerative Joint Disease I identified the patient and participated in the time-out.: Yes Procedure Operation Date: 02/09/21 12:30 Actual Procedures p Right Total Knee Arthroplasty, Cemented(Right) - Renny Warren MD Surgeon Renny Warren MD Decorating Consultant TAMAR Garcia Estimated Blood Loss 50 Findings Consistent with Post-Op Diagnosis Operative findings revealed advanced right knee medial compartment DJD. Extensive grade 4 change of the medial femoral condyle and less severe changes the medial till plateau. The lateral patellofemoral joints were fairly well- preserved. Moderate-sized joint effusion. Fluids 1400 cc. Specimens Right knee sent for pathology. Drains None. Complications none Disposition Accompanied Patient To Recovery: No Disposition: Recovery Room Indications Patient is a 65-year-old gentleman who is now about 6 months out from a right knee arthroscopy and meniscectomy and chondroplasty done by my partner Dr. Ramon. He did well initially and then had a repeat injury about 4 months ago. He said persistent pain discomfort and swelling since then. He has been through extensive conservative treatment which really has not helped. He has been miserable. He had ultrasound which revealed no signs of DVT but a ruptured Vo's cyst. Then x-ray showed progression of his medial compartment arthritis. He elected proceed with surgical treatment. Description of Procedure Operative implants consist of: 1. Biomet Vanguard size 70 right posterior stabilized femoral component. 2. Biomet size 75 tibial tray. 3. 10 mm posterior stabilized polyethylene insert. 4. 34 x 8 and half all polypatella. The patient was taken to the operating room identified and placed on the operating table supine position but all contact areas were properly padded. IV antibiotics tried by anesthesia team. A spinal anesthetic and abductor canal block had provided in the holding area. Armenta catheter was placed in sterile fashion. A right thigh turn was then placed. The right lower extremities and prepped and draped in usual sterile fashion. The right leg was elevated exsanguinated with use of an Esmarch and tourniquet placed at 300 mmHg. An anterior approach of the right knee was then performed through longitudinal incision centered over the patella. Sharp dissection was carried through subcutaneous tissue down the level of the extensor mechanism. A medial parapatellar arthrotomy incision was made. Some subperiosteal dissection was carried out medially. The fat pad was resected from each patella tendon. Lateral patellofemoral ligament was released. Patella was subluxated laterally and the knee was flexed. The osteophytes were taken off distal femur. The ACL and PCL were then released from the distal femur and the tibia subluxated anteriorly. External tibial alignment jig was then placed in the interface the tibia and adjusted 14 mm medially. Proximal tibial cut was made to remove about 2 to 3 mm of bone from the medial side. The tibia was then sized to a size 75. Attention then drawn to the femur. The distal femur turned with a sharp drill bit intramedullary canal was suction. A right 6 degree valgus cutting guide was placed for the distal femoral cutting block was pinned in place. Distal femoral cut was made to take an additional 3 mm of bone off distal femur. The femur was then sized to a size 70. The AP cutting block was pinned parallel to the epicondylar axis which was 3 degrees of external rotation. The anterior cut, anterior chamfer, posterior cut, posterior chamfer cuts were made. Box cutting guide was placed in just slight lateral box cut was made. The knee was flexed. The remnants of the medial lateral menisci were excised. The osteophytes were taken off the posterior aspect of the femur. A trial femoral component was placed. The tibial tray was pinned in maximum external rotation and the drill and stem punch were used to create defect in proximal tibia for the tibial tray. The knee was then trialed and the 10 mm insert fit most appropriately. Attention drawn the patella. The patella was cleaned of all soft tissues. Patella thickness measured 21 mm in thickness was cut down to 13. Was sized to a size 34 patella. The lug holes were drilled for the 34 patella. The lateral osteophyte is moved. Patella button was placed. Knee was taken through range of motion and patella tracked nicely with no thumbs test. Attention drawn toward placing the permanent components. All trial components were removed. A bone plug was placed in the distal femur limit blood loss. A double batch Palacos G cement was mixed. I did add an additional gram of vancomycin to this patient's recent knee surgery. A BiomGames2Winguard size 70 right posterior stabilized femoral component, size 75 tibial tray, a 10 mm posterior stabilized polyethylene insert, and a 34 x 8 and half all polypatella were then cemented in place. The knee was brought out in full extension total cement hardened. Final cement check was then performed. The pericapsular tissues were injected with total 100 cc of combination of 20 of Exparel, 30 cc normal saline, 50 cc of quarter percent Marcaine with epinephrine. Patient did receive 1 g tranexamic acid. The tourniquet was let let down for a total tourniquet time of 60 minutes. Hemostasis assured use electrocautery. The extensor mechanism closed with combination 1 PDS suture #1 Vicryl suture in [id number] fashion. Extensor mechanism checked found to be intact the subcutaneous tissue then closed with 2 Dexon suture to fascia skin was closed skin chelly. Leg was then cleaned and dried a sterile dressing both Xeroform, 4 x 4's, sterile cast padding, Aren bandage were applied. Patient then transferred to the recovery room in stable condition. Patient tolerated procedure well and there were no complications. Eliecer Garcia, my physician scheduling assistant, was present for the entire procedure. His assistance was essential and required for appropriate patient positioning, prepping and draping, surgical exposure, performing the technical details of the operation, placement the implants, closure of the wound, and placement of the sterile bandage. I attest to the content of the Intraoperative Record and any orders documented therein. Any exceptions are noted below.
[2021-02-09] MEDS: oxyCODONE HCL IR 5 MG TAB (IMMEDIATE RELEASE) PO PRN (19:49)
[2021-02-09] MEDS: TAPENTADOL HCL ER 50 MG TABCR PO SCH (20:27)
[2021-02-09] MEDS: DOCUSATE SODIUM 100 MG CAP PO SCH (20:28)
[2021-02-09] MEDS: ASPIRIN 81 MG ECTAB PO SCH (20:28)
[2021-02-09] MEDS: ceFAZolin 2000MG 2,000 MG/15 ML SYR IV SCH (20:28)
[2021-02-09] MEDS: SENNA 8.6 MG TAB PO SCH (20:28)
[2021-02-09] MEDS: buPROPion SR 150 MG TABCR PO SCH (20:28)
[2021-02-09] MEDS ORDERED: TRANEXAMIC ACID / 0.7% NACL 1,000 MG/100 ML BAG IV SCH (21:15)
[2021-02-09] MEDS: ACETAMINOPHEN 500 MG TAB PO SCH (22:11)
[2021-02-10] MEDS: ACETAMINOPHEN 500 MG TAB PO SCH ×3 (05:26→21:30)
[2021-02-10] MEDS: ceFAZolin 2000MG 2,000 MG/15 ML SYR IV SCH (05:26)
[2021-02-10] MEDS: KETOROLAC 30 MG/ML VIAL IV SCH ×4 (05:27→23:06)
[2021-02-10 06:18] LABS: Hematocrit (blood only) 34.4 % (42-52); Hemoglobin 11.4 g/dL (14.0-18.0); Mean Corpuscular Hemoglobin 31.3 pg (25-34); Mean Corpuscular Hgb Conc 33.1 g/dL (32-36); Mean Corpuscular Volume 94.5 fL (80-100); Mean Platelet Volume 9.9 fL (7.4-10.4); Platelet Count 197 K/uL (130-400); RDW Standard Deviation 48.1 fL (36.4-46.3); Red Blood Count 3.64 M/uL (4.7-6.1); White Blood Count 8.09 K/uL (4.8-10.8)
[2021-02-10 06:44] LABS: BUN Creatinine Ratio 11.1 (10-20); Calcium 8.8 mg/dl (8.5-10.1); Creatinine Clr Calc Pharmacy 74.3 ml/min; Est GFR (African American) 70.1; Est GFR (Non-African American) 60.5; Potassium 3.9 mmol/L (3.5-5.1)
[2021-02-10] MEDS ORDERED: dexAMETHasone 4 MG TAB PO SCH (08:00)
[2021-02-10] MEDS: DOCUSATE SODIUM 100 MG CAP PO SCH ×2 (08:48→21:31)
[2021-02-10] MEDS: ASCORBIC ACID 500 MG TAB PO SCH ×2 (08:51→16:39)
[2021-02-10] MEDS: FERROUS GLUCONATE 324 MG TAB PO SCH ×2 (08:51→16:39)
[2021-02-10] MEDS: MULTIVITAMIN TAB PO SCH (08:51)
[2021-02-10] MEDS: LISINOPRIL/HCTZ 10/12.5MG TAB PO SCH (08:51)
[2021-02-10] MEDS: ESCITALOPRAM OXALATE 20 MG TAB PO SCH (08:51)
[2021-02-10] MEDS: ATORVASTATIN 10 MG TAB PO SCH (08:51)
[2021-02-10] MEDS: buPROPion SR 150 MG TABCR PO SCH ×2 (08:51→21:31)
[2021-02-10] MEDS: ASPIRIN 81 MG ECTAB PO SCH ×2 (08:51→21:31)
[2021-02-10] MEDS: amLODIPine BESYLATE 5 MG TAB PO SCH (08:52)
[2021-02-10] MEDS: ALFUZOSIN HCL 10 MG TAB PO SCH (08:52)
[2021-02-10] MEDS: prednisoLONE acetate 1% OP SUSP 5 ML BTL OP SCH (08:52)
[2021-02-10] MEDS: Scopolamine CHECK PATCH PLACEMENT SCH ×3 (08:56→23:06)
[2021-02-10] MEDS: oxyCODONE HCL IR 5 MG TAB (IMMEDIATE RELEASE) PO PRN ×2 (08:58→16:38)
[2021-02-10] MEDS: TAPENTADOL HCL ER 50 MG TABCR PO SCH ×2 (08:58→21:30)
--- NOTE | 2021-02-10 17:35 | Progress Notes ---
DATE: 02/10/2021 SUBJECTIVE: A 65-year-old gentleman is postoperative day 1 from a right total knee replacement. He is doing well. A moderate amount of pain, but manageable. Therapy is going okay. No chest pain or shortness of breath. Not feeling dizzy or lightheaded. Bit apprehensive about going home at this point. PHYSICAL EXAMINATION: VITAL SIGNS: Temperature is 37.1. Vital signs are stable. GENERAL: Shows a pleasant middle-aged male. He is sitting up in his bedside chair, looks comfortable. LUNGS: Clear to auscultation. HEART: Has a regular rate and rhythm. ABDOMEN: Soft, nontender, nondistended. EXTREMITIES: Grossly neurovascularly intact except as follows: Examination of the right leg reveals the dressing to be clean, dry, and intact. He can dorsiflex and plantarflex his foot appropriately. He is neurologically intact. He has got brisk refill. LABORATORY DATA: Hemoglobin 11.4. Hematocrit 34.4. Electrolytes are stable. ASSESSMENT: A 65-year-old gentleman postoperative day 1 from a right knee replacement, doing pretty well. His pain has been reasonably well controlled. He is neurologically intact. PLAN: 1. DVT prophylaxis including thigh-high TEDs, SCDs, and aspirin twice a day. 2. PT/OT. Weight bear as tolerated. Right total knee protocol. 3. Pain control, doing okay with current pain regimen. 4. Disposition: He is planning to be discharged to home with some home health once adequately recovered and medically stable and pain adequately controlled.
[2021-02-10] MEDS: SENNA 8.6 MG TAB PO SCH (21:31)
[2021-02-11] MEDS: ACETAMINOPHEN 500 MG TAB PO SCH (05:09)
[2021-02-11] MEDS: KETOROLAC 30 MG/ML VIAL IV SCH (05:09)
--- NOTE | 2021-02-11 07:46 | Progress Notes ---
DATE: 02/11/2021 SUBJECTIVE: A 65-year-old gentleman postop day 2 from a right knee replacement. He is doing well. Pain seems to be better controlled this morning. No chest pain or shortness of breath. Not feeling dizzy or lightheaded. OBJECTIVE: VITAL SIGNS: Temperature 36.5. Vital signs stable. GENERAL: Physical examination shows a pleasant, middle-aged male. He is lying in bed, doing a heel prop. Looks comfortable. EXTREMITIES: His incision is clean, dry and intact. No significant drainage. Leg alignment looks good. Mild swelling. He is neurologically intact. Cast is soft and supple. ASSESSMENT: A 65-year-old gentleman postop day 2 from right knee replacement, doing well. PLAN: 1. DVT prophylaxis including thigh-high TEDs, SCDs, and aspirin twice a day. 2. PT/OT. Weight bear as tolerated. Right total knee protocol. 3. Pain control, doing well with current pain regimen. 4. Disposition: Plan to discharge to home with home health after therapy today.
[2021-02-11] MEDS: ASPIRIN 81 MG ECTAB PO SCH (09:28)
[2021-02-11] MEDS: Scopolamine CHECK PATCH PLACEMENT SCH (09:28)
[2021-02-11] MEDS: buPROPion SR 150 MG TABCR PO SCH (09:29)
[2021-02-11] MEDS: MULTIVITAMIN TAB PO SCH (09:30)
[2021-02-11] MEDS: ALFUZOSIN HCL 10 MG TAB PO SCH (09:30)
[2021-02-11] MEDS: DOCUSATE SODIUM 100 MG CAP PO SCH (09:30)
[2021-02-11] MEDS: ESCITALOPRAM OXALATE 20 MG TAB PO SCH (09:30)
[2021-02-11] MEDS: amLODIPine BESYLATE 5 MG TAB PO SCH (09:31)
[2021-02-11] MEDS: ATORVASTATIN 10 MG TAB PO SCH (09:31)
[2021-02-11] MEDS: ASCORBIC ACID 500 MG TAB PO SCH (09:32)
[2021-02-11] MEDS: FERROUS GLUCONATE 324 MG TAB PO SCH (09:32)
[2021-02-11] MEDS: LISINOPRIL/HCTZ 10/12.5MG TAB PO SCH (09:32)
[2021-02-11] MEDS: prednisoLONE acetate 1% OP SUSP 5 ML BTL OP SCH (09:33)
[2021-02-11] MEDS: TAPENTADOL HCL ER 50 MG TABCR PO SCH (09:35)
--- NOTE | 2021-02-17 09:36 | Discharge Summary ---
Date of Service February 17, 2021 Discharge Data Consultations 02/09/21 16:55 Consult Case Management - Discharge Planning Routine Procedures Performed Operation Date: 02/09/21 12:30 Actual Procedures p Right Total Knee Arthroplasty, Cemented(Right) - Renny Warren MD Hospital Course (1) Status post total right knee replacement: This patient is a 65 year old male admitted on 02/09/21 and underwent total knee arthroplasty. He tolerated the procedure well and there were no complications. Transferred to the PACU post op and later to the orthopedic floor for further care. He was given ancef for antibiotic prophylaxis. He was also given SUNITA stockings, SCDs, and aspirin for DVT prophylaxis. Hemoglobin, h ematocrit, and vital signs were monitored during his hospital stay and remained stable. Did not require any blood transfusions. There were no complications during his hospital stay. By post op day #2 the patient was tolerating a regular diet, pain was reasonably controlled with oral pain medicine, and he was participating in physical therapy. On post op day #2 the patient was discharged home and set up with home health care. He was given printed discharge instructions including prescriptions for extra strength tylenol, aspirin, and oxycodone. Continue physical therapy, weight bearing as tolerated. Continue SUNITA stockings. Follow up approximately 2 weeks post op or sooner if there are problems or concerns. Coding Level of Care Code None Diagnoses Status post total right knee replacement Z96.651
== END 2021-02-11 11:15 | disposition home health service (06) ==
LOC: ASU 10:24 → 3E 10:24

== ENCOUNTER 2025-05-13 05:46 | Observation (INO) ==
--- NOTE | 2025-03-25 15:02 | PAT Medication Instructions ---
Medication Instructions Date of Service March 25, 2025 Home Medications Medication Instructions Recorded diphcheikh,alexandraus(acell),tetanus 2.5 0.5 ml IM ONCE #0.5 mL 08/28/24 Lf unit-8 mcg-5 Lf/0.5mL IM syringe (Boostrix Tdap) pantoprazole 40 mg tablet,delayed 40 mg PO BID #60 tabs 09/16/24 release Medication List: atorvastatin 10 mg tablet 10 mg PO BID prednisolone acetate 1 % eye drops,suspension 2 drp ophthalmic (eye) QAM B-complex with vitamin C 1 cap PO QAM bupropion HCl 150 mg tablet,12 hr sustained-release 300 mg PO QAM amlodipine 10 mg tablet 10 mg PO QAM aspirin 81 mg tablet,delayed release (Cecy Low Dose Aspirin) 81 mg PO UD sertraline 100 mg tablet 150 mg PO QAM pantoprazole 40 mg tablet,delayed release 40 mg PO BID lisinopril 10 mg-hydrochlorothiazide 12.5 mg tablet 1 tab PO QAM mirtazapine 15 mg tablet 7.5 mg PO HS tamsulosin 0.4 mg capsule 0.4 mg PO QAM MEDICATION INSTRUCTIONS: Continue as directed prednisolone acetate 1 % eye drops,suspension 2 drp ophthalmic (eye) QAM ASK your prescriber and surgeon aspirin 81 mg tablet,delayed release (Cecy Low Dose Aspirin) 81 mg PO UD DO NOT take the morning of surgery lisinopril 10 mg-hydrochlorothiazide 12.5 mg tablet 1 tab PO QAM B-complex with vitamin C 1 cap PO QAM Take morning of surgery With a small sip of water, OTHERWISE NOTHING TO EAT OR DRINK AFTER MIDNIGHT: pantoprazole 40 mg tablet,delayed release 40 mg PO BID atorvastatin 10 mg tablet 10 mg PO BID tamsulosin 0.4 mg capsule 0.4 mg PO QAM sertraline 100 mg tablet 150 mg PO QAM bupropion HCl 150 mg tablet,12 hr sustained-release 300 mg PO QAM amlodipine 10 mg tablet 10 mg PO QAM Take evening before surgery pantoprazole 40 mg tablet,delayed release 40 mg PO BID atorvastatin 10 mg tablet 10 mg PO BID mirtazapine 15 mg tablet 7.5 mg PO HS Other Notes If you have any questions please call us at [phone] or [phone] or [phone] or [phone]
--- NOTE | 2025-04-04 10:47 | Anesthesiology Consultation ---
Date of Service April 04, 2025 Assessment & Plan (1) Encounter for pre-operative examination: - Patient is overdue to see [facility] cardiology per last note, no upcoming appointment to review of EMR. Case discussed in detail with Dr. Lew who advised patient will need cardiology clearance prior to surgery. Patient and surgeon's office made aware, patient denied questions or concerns. Optimization form to be faxed to [facility] cardiology, Dr. Lou. Chart Review Chart Review: Pending: Refer to Additional Notes / Consult section and Patient seen in Pre Admission Testing Teaching & Discussion Pre-Anesthesia Teaching/Discussion Notes: Instructed NPO after midnight before surgery, except medications with 15 cc of water. Medication instructions provided according to the PAT guidelines. History Surgery Operation Date: 04/15/25 07:30 Proposed Procedures p L3-L4 Lateral Lumbar Interbody Fusion, L3-L4 Posterior Fusion Instrumentation, Decompression, Removal Hardware L4,L5,S1, Evaluation and Fusion L4-L5, L5-S1, with Spinal Cord Monitoring - Oswald Douglas MD Height/Weight Height: 5 ft 10 in Weight: 111.1 kg Allergies Allergy/AdvReac Type Severity Reaction Status Date / Time oxycodone AdvReac Severe anger Verified 04/04/25 10:59 hydrocodone AdvReac Intermediate anger Verified 04/04/25 10:59 NEOPRENE Allergy Intermediate Rash, Uncoded 04/03/25 11:37 irritation Medications Home Medications Medication Instructions Recorded Confirmed Last Taken atorvastatin 10 mg tablet 10 mg PO BID 09/13/19 03/25/25 05/25/24 20:00 prednisolone acetate 1 % eye 2 drp ophthalmic (eye) QA 08/04/20 03/25/25 03/11/22 05:15 drops,suspension B-complex with vitamin C 1 cap PO QAM 01/12/22 03/25/25 05/26/24 09:00 bupropion HCl 150 mg tablet,12 hr 300 mg PO QAM 11/09/23 03/25/25 05/27/24 09:00 sustained-release amlodipine 10 mg tablet 10 mg PO QAM 02/27/24 03/25/25 05/27/24 09:00 aspirin 81 mg tablet,delayed 81 mg PO UD 02/27/24 03/25/25 05/26/24 09:00 release (Cecy Low Dose Aspirin) sertraline 100 mg tablet 150 mg PO QAM 02/27/24 03/25/25 05/27/24 09:00 diphth,pertus(acell),tetanus 2.5 0.5 ml IM ONCE #0.5 mL 08/28/24 03/03/25 Unknown Lf unit-8 mcg-5 Lf/0.5mL IM syringe (Boostrix Tdap) pantoprazole 40 mg tablet,delayed 40 mg PO BID #60 tabs 09/16/24 03/25/25 Unknown release lisinopril 10 1 tab PO QAM 03/25/25 03/25/25 Unknown mg-hydrochlorothiazide 12.5 mg tablet mirtazapine 15 mg tablet 7.5 mg PO HS 03/25/25 03/25/25 Unknown tamsulosin 0.4 mg capsule 0.4 mg PO QAM 03/25/25 03/25/25 Unknown Past Medical History Medical History (Updated 04/04/25 @ 12:49 by Kayla Parikh, TAMAR) Anxiety Aortic root dilatation Per 12/08/21 ECHO- aortic root and proximal ascending aorta are moderately enlarged at 4.5 and 4.7cm, respectively being monitored by dr. lou, [facility] cardio. BPH (benign prostatic hyperplasia) CAD (coronary artery disease) Minimal nonobstructive coronary artery disease 20-30% mid LAD disease per 11/2019 cardiac cath; [facility] cardio Cervical pain (neck) limited ROM L/R Chronic lumbar pain CKD (chronic kidney disease), stage III Depression Dream enactment behavior hx; per records "Sleep study 03/19/2019 - NOted corrected JOSUÉ with CPAP. Evidence of REM without atonia consistent with REM behavior d/o. Recommended CPAP 10cm H20 and possible clonazepam for REM behavior d/o." Fuchs' corneal dystrophy s/p Phacoemulsification cataract extraction with intraocular lens placement and Descemet stripping automated endothelial keratoplasty, right eye on 06/29/2015. Hearing loss bilat. hearing aids History of esophageal reflux controlled, stable per pt HTN (hypertension) controlled, stable per pt Hx of spinal stenosis lumbar Hyperlipidemia Lumbar stenosis with neurogenic claudication s/p Lumbar decompression, medial facetectomy and foraminotomy L4-L5, L5-S1. Posterior spinal fusion L4-L5, L5-S1d. Placement of posterior segmental instrumentation using Orthros rods and screws L4-L5, L5-S1. Interbody fusion L5-S1. Placement of PEEK cage L5-S1 on 02/08/[address] Yoni Anaya. Obesity Osteoarthritis Psoriasis PTSD (post-traumatic stress disorder) Retrolisthesis of vertebrae hx; L3-4 Seborrheic keratosis Sleep apnea CPAP, uses nightly SOBOE (shortness of breath on exertion) chronic, occasional, denies change or worsening Solitary thyroid nodule 9mm complex cyst biopsied 11/29/2007, aspirate consistent with colloid nodule. Patient denies h/o stroke, seizures, heart attack, heart failure, DM, blood clots/DVTs or blood transfusions. Exercise / Class Metabolic Activity II 4-5 Yardwork/Stairs/Walk up hill (occasional shortness of breath with one flight of stairs ongoing over one year without change or worsening, denies chest discomfort ) Past Family History Family History Mother Diabetes Myocardial infarction Brother Myocardial infarction Diabetes Other ASCVD (arteriosclerotic cardiovascular disease) No family history of adverse response to anesthesia Denies family history of Ovarian cancer Prostate cancer Breast cancer Lung cancer Colorectal cancer Past Surgical History Surgical History (Updated 04/04/25 @ 12:49 by Kayla Parikh PA-C) History of back surgery s/p Lumbar decompression, medial facetectomy and foraminotomy L4-L5, L5-S1. Posterior spinal fusion L4-L5, L5-S1d. Placement of posterior segmental instrumentation using Orthros rods and screws L4-L5, L5-S1. Interbody fusion L5-S1. Placement of PEEK cage L5-S1 on 02/08/[address] Yoni Anaya. History of cardiac cath 11/2019- nonobstructive disease, 20 to 30% mid LAD disease; f/u [facility] cardio History of cataract surgery RT/LEFT History of corneal transplant RT/LEFT History of esophagogastroduodenoscopy (EGD) History of hemorrhoidectomy History of knee surgery LEFT X 2 Right arthroscopy 08/13/2020: LMA#4. History of left knee replacement History of sinus surgery History of surgery anal fistulectomy History of tonsillectomy History of tooth extraction History of total knee replacement RT. 02/09/2021: SAB at L3 x 3 attempts + PNB. No postop issues per anesthesia progress note. Hx of colonoscopy Hx of shoulder surgery RT RCR Past Anesthesia History No Hx of Anesthesia Complications and Other (daughter slow to wake) History of PONV No Hx of PONV and No Hx of Motion Sickness Social History Smoking Status: Former smoker tobacco type: smokeless tobacco Do You Dip or Chew Tobacco: Yes (advised) Smoking End Date: many years ago Hx Alcohol Use: Yes Alcohol type: beer alcohol intake frequency: a few times a month Hx Substance Use: No substance use type: does not use Review of Systems Patient denies chest pain, fever, chills, cough, wheezing, or palpitations. Physical Exam Vital Signs Vitals BP 124/73 P 74 TEMP 98.1 SP02 94% on RA RESP 18 Physical Patient resting comfortably in chair in no acute distress, alert and oriented, responding appropriately throughout visit Full cervical extension range of motion without pain TMD 3.5 finger breadths Mallampati Score 3 Dentition: intact, denies chipped or loose teeth, caps/crowns, implants or bridges Lungs: normal respiratory effort. Good air movement, clear throughout to auscultation, no adventitious breath sounds Cardiac: regular rate and rhythm, no murmurs noted Carotid arteries: negative bruit bilat Lab Results Anesthesia Preop Results Results Anesthesia Widget: WBC 6.38 K/ul (4.8-10.8) 04/04/25 Hgb 14.4 g/dl (14.0-18.0) 04/04/25 Hct 42.7 % (42.0-52.0) 04/04/25 Plt 212 K/uL (130-400) 04/04/25 Na 141 mmol/L (136-145) 04/04/25 K 3.8 mmol/L (3.5-5.1) 04/04/25 Cl 104 mmol/L (98-107) 04/04/25 CO2 34 mmol/L (21-32) H 04/04/25 BUN 14 mg/dl (6-23) 04/04/25 Creat 1.29 mg/dl (0.6-1.4) 04/04/25 Glucose Level 126 mg/dl (70-99(Fasting)) H 04/04/25 PT 10.9 Seconds (9.0-12.0) 04/04/25 PTT 29 Seconds (21-31) 04/04/25 INR 1.0 (0.9-1.1) 04/04/25 Blood Type O Positive 04/04/25 Antibody Screen NEGATIVE 04/04/25 Testing Electrocardiogram Date: 04/04/25 NSR, rate [address] abnormality, no significant change was found vs 11/09/23 EKG Chest X-Ray Date: 04/04/25 No acute findings. Echocardiogram Date: 03/14/24 LVEF 55-59% Moderate cLVH Grade I diastolic dysfunction Mildly enlarged aortic root 4.2 cm Moderately enlarged ascending aorta 4.7 cm No significant valvular disease Stress Test Date: 12/02/19 MPHR 104% METS 8.6 Equivocal for excluding inducible ischemia Resting LV wall motion Baseline artifact limiting the assessment of the ST segments at peak stress Cardiac Catheterization Date: 12/02/19 LM -Short, no significant disease LAD -large caliber vessel, 20 to 30% mid segment disease. Distal vessel tapers to apex. First and second diagonal without significant disease Circumflex -large caliber vessel, mid segment luminal irregularities. OM 2, OM 3 without significant disease. RCA -dominant, large caliber vessel, mid segment luminal irregularities. Right PDA without significant disease Summary: 1. Minimal nonobstructive coronary artery disease-20 to 30% mid LAD disease 2. Normal intracardiac filling pressure
[2025-05-13] MEDS: GABAPENTIN 300 MG CAP PO SCH (06:27)
[2025-05-13] MEDS: ACETAMINOPHEN 500 MG TAB PO SCH (06:27)
[2025-05-13] MEDS: LR 15ML/HR IV SCH (06:28)
[2025-05-13] MEDS: LR 60ML/HR IV SCH (06:28)
[2025-05-13] MEDS ORDERED: ONDANSETRON INJ 2 MG/ML 2 ML VIAL ONE (07:11)
[2025-05-13] MEDS ORDERED: PROPOFOL IV EMULSION 10 MG/ML 20 ML VIAL IV ONE ×2 (07:11→08:07)
[2025-05-13] MEDS ORDERED: SUCCINYLCHOLINE 100MG/5ML SYR IV ONE (07:11)
[2025-05-13] MEDS ORDERED: PROPOFOL IV EMULSION 10 MG/ML 100 ML VIAL IV ONE (07:11)
[2025-05-13] MEDS ORDERED: DEXAMETHASONE SOD INJ 4 MG/ML VIAL ONE (07:11)
[2025-05-13] MEDS ORDERED: REMIFENTANIL HCL 1 MG VIAL IV ONE (07:11)
[2025-05-13] MEDS ORDERED: ROCURONIUM BROMIDE 10 MG/ML 5 ML VIAL IV ONE ×2 (07:11→10:31)
[2025-05-13] MEDS ORDERED: MIDAZOLAM HCL 1 MG/ML 2ML VIAL ONE (07:12)
[2025-05-13] MEDS ORDERED: fentaNYL citrate PF 100 MCG/2 ML VIAL ONE (07:12)
[2025-05-13] MEDS ORDERED: PHENYLEPHRINE HCL 10 MG/ML VIAL ONE ×2 (07:12→11:36)
--- NOTE | 2025-05-13 07:26 | History & Physical Bridge Note ---
Date of Service May 13, 2025 History & Physical Bridge Note I have examined the patient, reviewed the History & Physical and in the interval since the performance of the History & Physical I have noted the following changes of clinical significance: no changes noted
--- NOTE | 2025-05-13 07:28 | History & Physical Report ---
Date of Service May 13, 2025 History of Present Illness Chief Complaint: low back and leg pain. Primary Care Provider: Mohamud Ryan DO Patient returns status post his lumbar MRI from February 24. He notes continued symptoms both in the back pain but more prominently in the lower extremity symptoms. No changes in examination, no focal motor weakness. Pain indicated in the anterior thighs. Review of MRI images from [facility]-mar[facility] from February 24, 2025 of the lumbar spine, this my separate review, this reveals the patient's findings to be at the L3-4 level where he has a combination of retrolisthesis broad-based disc bulge, facet arthropathy severe foraminal and severe central stenosis. This is above the two-level fusion L4-S1. The L1-2 and L2-3 levels have some minimal degenerative changes. Impression: L3-4 lumbar degeneration above 2 level fusion L4-S1 with retrolisthesis, severe central and foraminal stenosis. Plan: Today I reviewed the imaging studies with the patient this included both the radiographs and the MRI and went over these in detail. At this time I discussed with him the findings and how it is related to his symptoms, specifically and then reviewed with him all treatment options. Medications and physical therapy have been tried, and certainly with the amount of stenosis he has I think the benefits would be limited. Beyond this, the patient could consider pain management and try an epidural injection or transforaminal's around that level but may be limited due to the amount of stenosis in terms of any lasting relief. Lastly I did discuss operative intervention, due to the findings as listed above, I think the best option would be to address the L3-4 level with a fusion decompression. I discussed there is different techniques to do this but my recommendation would be for a lateral cage placement at L3-4 with the ability to elevate this level and improve the alignment relative to the remainder of the spine, but then posteriorly to a instrumented fusion and decompression at that level. This would require removal of hardware from L4-S1, would also explore the fusion in this region to make sure that solid arthrodesis has been achieved. I went on to explain the technical details of the surgery, potential risk complication hospital postoperative course. Also discussed was the fact that this is adjacent segment degeneration which can occur again, I related the patient that I think thought consideration has to be made relative to some of his bending lifting techniques long-term but also some weight reduction. Currently he is around 250 but I certainly emphasized to him the importance of getting his weight down to perhaps 200 or less which would take significant amount of stress off his remaining spine. He is in agreement with this plan we will work to get him scheduled for this at some point in the future with follow-up, he wanted his to be here today she was not able to make it, told him he can return anytime for additional review and discussion. Allergies Allergy/AdvReac Type Severity Reaction Status Date / Time oxycodone AdvReac Severe anger Verified 04/04/25 10:59 hydrocodone AdvReac Intermediate anger Verified 04/04/25 10:59 NEOPRENE Allergy Intermediate Rash, Uncoded 04/03/25 11:37 irritation Home Medications Medication Instructions Recorded Confirmed Type atorvastatin 10 mg tablet 10 mg PO BID 09/13/19 05/13/25 History prednisolone acetate 1 % eye 2 drp ophthalmic (eye) QAM 08/04/20 05/13/25 History drops,suspension B-complex with vitamin C 1 cap PO QAM 01/12/22 05/13/25 History bupropion HCl 150 mg tablet,12 hr 300 mg PO QAM 11/09/23 05/13/25 History sustained-release amlodipine 10 mg tablet 10 mg PO QAM 02/27/24 05/13/25 History aspirin 81 mg tablet,delayed 81 mg PO UD 02/27/24 05/13/25 History release (Cecy Low Dose Aspirin) sertraline 100 mg tablet 150 mg PO QAM 02/27/24 05/13/25 History lisinopril 10 1 tab PO QAM 03/25/25 05/13/25 History mg-hydrochlorothiazide 12.5 mg tablet mirtazapine 15 mg tablet 7.5 mg PO HS 03/25/25 05/13/25 History pantoprazole 40 mg tablet,delayed See Rx Instructions .Route 04/28/25 05/13/25 Rx release .COMPLEX #60 tabs tamsulosin 0.4 mg capsule 0.4 mg PO QAM #90 caps 05/07/25 05/13/25 Rx Past Med/Surg History Problem List Retrolisthesis of vertebrae L3-4 Low back pain radiating to both legs Adjacent segment disease of lumbar spine with history of fusion procedure GERD (gastroesophageal reflux disease) Depression Encounter for pre-operative examination Erectile dysfunction Hospital discharge follow-up Peyronie's disease BPH with obstruction/lower urinary tract symptoms Cervical radicular pain Cervical spondylosis Cervical facet joint syndrome Cornea transplant recipient Cervical neuropathic pain Bilateral knee pain Cervical spondylarthritis History of colonoscopy Angioma Dream enactment behavior Sleep study 03/19/2019 - NOted corrected JOSUÉ with CPAP. Evidence of REM without atonia consistent with REM behavior d/o. Recommended CPAP 10cm H20 and possible clonazepam for REM behavior d/o. Fuchs' corneal dystrophy s/p Phacoemulsification cataract extraction with intraocular lens placement and Descemet stripping automated endothelial keratoplasty, right eye on 06/29/2015. Hearing loss Metabolic syndrome Psoriasis Solitary thyroid nodule 9mm complex cyst biopsied 11/29/2007, aspirate consistent with colloid nodule. Coronary artery disease, non-occlusive Anxiety SOB (shortness of breath) Aortic root dilation Per 12/08/21 ECHO- aortic root and proximal ascending aorta are moderately enlarged at 4.5 and 4.7cm, respectively BEING MONITORED BY DR. SWANSON/CARDIOLOGY Hyperlipidemia HTN (hypertension) Moderate obstructive sleep apnea CPAP, pt reports uses it every night Reactive depression (situational) Smokeless tobacco use Spinal stenosis Lumbar back Medical History Lumbar stenosis with neurogenic claudication s/p Lumbar decompression, medial facetectomy and foraminotomy L4-L5, L5-S1. Posterior spinal fusion L4-L5, L5-S1d. Placement of posterior segmental instrumentation using Orthros rods and screws L4-L5, L5-S1. Interbody fusion L5-S1. Placement of PEEK cage L5-S1 on 02/08/[address] Yoni Anaya. Hx of spinal stenosis lumbar Retrolisthesis of vertebrae hx; L3-4 Dream enactment behavior hx; per records "Sleep study 03/19/2019 - NOted corrected JOSUÉ with CPAP. Evidence of REM without atonia consistent with REM behavior d/o. Recommended CPAP 10cm H20 and possible clonazepam for REM behavior d/o." Solitary thyroid nodule 9mm complex cyst biopsied 11/29/2007, aspirate consistent with colloid nodule. Psoriasis Osteoarthritis Chronic lumbar pain Hyperlipidemia HTN (hypertension) controlled, stable per pt Hearing loss bilat. hearing aids Fuchs' corneal dystrophy s/p Phacoemulsification cataract extraction with intraocular lens placement and Descemet stripping automated endothelial keratoplasty, right eye on 06/29/2015. Depression Cervical pain (neck) limited ROM L/R BPH (benign prostatic hyperplasia) Aortic root dilatation Per 12/08/21 ECHO- aortic root and proximal ascending aorta are moderately enlarged at 4.5 and 4.7cm, respectively being monitored by [facility]. Anxiety Sleep apnea CPAP, uses nightly SOBOE (shortness of breath on exertion) chronic, occasional, denies change or worsening CKD (chronic kidney disease), stage III Obesity CAD (coronary artery disease) Minimal nonobstructive coronary artery disease 20-30% mid LAD disease per 11/2019 cardiac cath; [facility] cardio History of esophageal reflux controlled, stable per pt Seborrheic keratosis PTSD (post-traumatic stress disorder) Surgical History History of esophagogastroduodenoscopy (EGD) History of left knee replacement Hx of colonoscopy Hx of shoulder surgery RT RCR History of total knee replacement RT. 02/09/2021: SAB at L3 x 3 attempts + PNB. No postop issues per anesthesia progress note. History of tooth extraction History of cataract surgery RT/LEFT History of corneal transplant RT/LEFT History of cardiac cath 11/2019- nonobstructive disease, 20 to 30% mid LAD disease; f/u [facility] cardio History of surgery anal fistulectomy History of tonsillectomy History of sinus surgery History of knee surgery LEFT X 2 Right arthroscopy 08/13/2020: LMA#4. History of hemorrhoidectomy History of back surgery s/p Lumbar decompression, medial facetectomy and foraminotomy L4-L5, L5-S1. Posterior spinal fusion L4-L5, L5-S1d. Placement of posterior segmental instrumentation using Orthros rods and screws L4-L5, L5-S1. Interbody fusion L5-S1. Placement of PEEK cage L5-S1 on 02/08/[address] Yoni Anaya. Family History Mother Diabetes Myocardial infarction Brother Myocardial infarction Diabetes Other ASCVD (arteriosclerotic cardiovascular disease) No family history of adverse response to anesthesia Denies family history of Ovarian cancer Prostate cancer Breast cancer Lung cancer Colorectal cancer Social History Smoking Status: Former smoker Tobacco Type: Smokeless Tobacco (Dip or Chew) Smoking End Date: many years ago; Second Hand Exposure: No; Do You Dip or Chew Tobacco: Yes (advised); Tobacco Cessation Education Requested by Patient: No Hx Alcohol Use: Yes Alcohol type: beer Alcohol Intake Frequency Comment: once every 1-2 weeks Hx Substance Use: No Preferred Language: Croatian Communication Ability: Effective Visual Impairment: Diminished Hearing Ability: Use of Hearing Aid Reel Stripper Required: No Beliefs That Will Affect Care: None marital status: Current Living Situation: Spouse and Family current occupational status: retired How many Children do You have: 3 Other Information That Helps Us Care for You: No Feels Safe at Home: Yes Safety Concerns: Feels Safe At This Time Childhood Exposure to Second-Hand Smoke: No Diet: regular caffeine: Yes during the past year weight has: remained stable Dental Care, Regularly: Yes Physical Activity Frequency: 3-4 Times per Week Seatbelt Use: always Sunscreen Use: No Gender Identity: Male Assistive Devices: CPAP and Hearing Aid - Bilateral Results & Data Results & Data Vital Signs (Past 12 Hours) Vital Signs Temp Pulse Resp BP Pulse Ox O2 Del Method 05/13/25 06:08 37 C 55 L 19 135/76 97 Room Air
[2025-05-13] MEDS ORDERED: KETAMINE HCL 10MG/ML SYR ONE (08:00)
[2025-05-13] MEDS ORDERED: ePHEDrine sulfate 50 MG/5 ML SYR ONE (08:06)
[2025-05-13] MEDS: ceFAZolin 2000MG 2,000 MG/15 ML SYR IV SCH ×2 (08:15→20:49)
[2025-05-13] MEDS ORDERED: VASOPRESSIN 20 UNIT/ML VIAL ONE (09:06)
[2025-05-13] MEDS: GELATIN SPONGE 12-7MM ONE (11:47)
[2025-05-13] MEDS: THROMBIN 5000 UNITS KIT ONE (11:47)
[2025-05-13] MEDS: VANCOMYCIN HCL 1000MG/20ML VIAL ONE (11:48)
[2025-05-13] MEDS ORDERED: TRANEXAMIC ACID / 0.7% NACL 1000MG/100ML BAG IV ONE (11:59)
[2025-05-13] MEDS: TRANEXAMIC ACID 1,000 MG in SODIUM CHLORIDE 0.9% 100 ML IR ONE (12:07)
[2025-05-13] MEDS: ceFAZolin 2000MG 2,000 MG/15 ML SYR IV ONE (12:15)
[2025-05-13] MEDS ORDERED: ceFAZolin 330 MG/ML 1 GM VIAL ONE (12:44)
[2025-05-13] MEDS ORDERED: SUGAMMADEX SODIUM 200 MG/2 ML VIAL IV ONE (13:06)
[2025-05-13] MEDS: BUPIVACAINE/EPINEPHRINE 0.5% MPF 1:200,000 30 ML VIAL ONE (13:38)
[2025-05-13] MEDS ORDERED: KETOROLAC 30 MG/ML VIAL ONE (13:56)
[2025-05-13] MEDS ORDERED: ACETAMINOPHEN 1000 MG/100 ML IV IV ONE (13:59)
[2025-05-13] MEDS ORDERED: ONDANSETRON 4 MG OD TAB PO PRN (14:20)
[2025-05-13] MEDS ORDERED: NALOXONE HCL 0.4 MG/1 ML VIAL/CARP IV PRN (14:20)
[2025-05-13] MEDS ORDERED: MAGNESIUM HYDROXIDE SUSP 30 ML UDC PO PRN (14:20)
[2025-05-13] MEDS ORDERED: DO NOT ADMINISTER PNEUMOCOCCAL VACCINE PRN (14:20)
[2025-05-13] MEDS ORDERED: hydrOXYzine HCl 25 MG TAB PO PRN (14:20)
[2025-05-13] MEDS ORDERED: PROMETHAZINE 12.5 MG/50.5 ML BAG IV PRN (14:20)
[2025-05-13] MEDS ORDERED: LORazepam 0.5 MG TAB PO PRN (14:20)
[2025-05-13] MEDS ORDERED: oxyCODONE/ACETAMINOPHEN 5mg/325mg TAB PO PRN (14:20)
[2025-05-13] MEDS ORDERED: diphenhydrAMINE Capsule 25 MG CAP PO PRN (14:20)
[2025-05-13] MEDS ORDERED: ALUMINUM/MAGNESIUM SUSP 30 ML UDC PO PRN (14:20)
[2025-05-13] MEDS ORDERED: ACETAMINOPHEN 500 MG TAB PO PRN (14:20)
[2025-05-13] MEDS ORDERED: DO NOT ADMINISTER FLU VACCINE PRN (14:20)
[2025-05-13] MEDS ORDERED: ONDANSETRON INJ 2 MG/ML 2 ML VIAL IV PRN ×2 (14:20→15:09)
[2025-05-13] MEDS ORDERED: bisacodyL 10 MG SUPP PR PRN (14:20)
[2025-05-13] MEDS ORDERED: FAMOTIDINE 20 MG TAB PO PRN (14:20)
[2025-05-13] MEDS ORDERED: METOCLOPRAMIDE HCL INJ 5 MG/ML 2 ML VIAL IV PRN (14:20)
[2025-05-13] MEDS ORDERED: LORazepam 2 MG/1 ML VIAL IV PRN (14:20)
[2025-05-13] MEDS ORDERED: SOD PHOSPHATE/SOD BIPHOSPHATE ENEMA 132 ML BTL PR PRN (14:20)
--- NOTE | 2025-05-13 14:20 | Post Operative Brief Note ---
PG Immediate Post Op with CF Date of Surgery May 13, 2025 Pre & Post Diagnosis Operation Date: 05/13/25 07:30 Pre-Op Diagnosis: Retrolisthesis of Vertebrae Post-Op Diagnosis: Retrolisthesis of Vertebrae I identified the patient and participated in the time-out.: Yes Procedure Operation Date: 05/13/25 07:30 Actual Procedures p L3-L4 Lateral Lumbar Interbody Fusion, L3-L4 Posterior Fusion Instrumentation, Decompression, L4, L5, S1 Removal Hardware, L4-L5, L5-S1 Evaluation and Fusion, Spinal Cord Monitoring(Not Applicable) - Oswald Douglas MD Surgeon Oswald Douglas MD Manager Property none Estimated Blood Loss 150 Findings Consistent with Post-Op Diagnosis Specimens Specimen Description: none per surgeon Drains Armenta Catheter
--- NOTE | 2025-05-13 14:32 | Fluoroscopy Report ---
FL lumbar spine 2-3V CLINICAL HISTORY: LUMBAR COMPARISON STUDY: None FLUOROSCOPY TIME: 201 seconds FLUOROSCOPY IMAGES: 10 EXPOSURE DOSE: 156 mGy FINDINGS: Fluoroscopy was provided for lumbar surgery. IMPRESSION: Intraoperative fluoroscopy. ACT 112: Negative or not required by law. Electronically signed by: Sánchez See M.D. 05/13/2025 2:31 PM
[2025-05-13] MEDS ORDERED: ePHEDrine sulfate 50 MG/ML AMP IV PRN (15:09)
[2025-05-13] MEDS ORDERED: PROMETHAZINE HCL 6.25 MG in SODIUM CHLORIDE 0.9% 50 ML IV PRN (15:09)
[2025-05-13] MEDS ORDERED: fentaNYL citrate PF 100 MCG/2 ML VIAL IV PRN (15:09)
[2025-05-13] MEDS ORDERED: ATROPINE SULFATE 0.1 MG/ML 10ML SYR IV PRN (15:09)
[2025-05-13] MEDS: HYDROmorphone INJ 1 MG/ML SYRINGE IV PRN (15:14)
[2025-05-13] MEDS: HYDROmorphone INJ 2 MG/ML SYR/VIAL IV PRN (15:14)
[2025-05-13] MEDS ORDERED: HYDROCODONE/ACETAMOPHEN 5/325MG TAB PO PRN (15:53)
--- NOTE | 2025-05-13 16:23 | Anesthesiology Progress Note ---
Date of Service May 13, 2025 Anesthesia Post Procedure Vital Signs Vital Signs: Temp Pulse Pulse Resp BP Pulse Ox O2 Del Method 05/13/25 15:58 36.4 C L 68 16 119/67 97 Nasal Cannula 05/13/25 15:50 36.4 C L 68 16 119/67 97 Nasal Cannula 05/13/25 15:35 36.3 C L 70 14 127/63 94 Nasal Cannula 05/13/25 15:25 71 18 108/77 97 Nasal Cannula 05/13/25 15:15 73 14 124/66 94 Nasal Cannula 05/13/25 15:05 72 14 108/77 95 Nasal Cannula 05/13/25 14:55 76 10 L 140/61 96 Nasal Cannula 05/13/25 14:45 74 19 116/60 95 Oxymask 05/13/25 14:35 63 13 102/52 L 95 Oxymask 05/13/25 14:25 63 14 105/56 L 95 Oxymask 05/13/25 14:19 36.0 C L 67 16 108/55 L 95 Oxymask 05/13/25 06:08 37 C 55 L 19 135/76 97 Room Air O2 Flow Rate 05/13/25 15:58 2 05/13/25 15:50 05/13/25 15:35 2 05/13/25 15:25 2 05/13/25 15:15 2 05/13/25 15:05 2 05/13/25 14:55 4 05/13/25 14:45 4 05/13/25 14:35 4 05/13/25 14:25 10 05/13/25 14:19 10 05/13/25 06:08 Pain Intensity Lower Back: Pain Intensity: 6 Transfer of Care Handoff Completed per policy Notes Mental Status: alert / awake / arousable and participated in evaluation Patient Amnestic to Procedure: Yes Nausea / Vomiting: adequately controlled Pain: adequately controlled Airway Patency, RR, SpO2: stable & adequate BP & HR: stable & adequate Hydration State: stable & adequate Anesthetic Complications: no major complications apparent
--- NOTE | 2025-05-13 16:25 | Hospitalist Consultation ---
Date of Consultation May 13, 2025 Assessment & Plan (1) Lumbar stenosis with neurogenic claudication: (2) HTN (hypertension): (3) Hyperlipidemia: (4) Anxiety: Plan Nathanael is a 69M with a PMHx of HLD, anxiety/depression, HTN, JOSUÉ, CAD and PTSD who presents to the surgery for elective back surgery with Dr. Douglas. Hospital Medicine team consulted for "surgery" #Neurogenic claudication S/P L3-L4 Lateral Lumbar Interbody Fusion, L3-L4 Posterior Fusion Instrumentation, Decompression. L4-L5, L5-S1 Evaluation and Fusion with Dr. Douglas 05/13 pain control / dvt proh/ abx/ dispo planning per primary team EBL: 150 Monitor AM CBC and BMP PT/OT #HTN Continue Amlodipine Hold lisinopril-HCTZ pending AM labs #Anxiety/PTSD/Depression - Follows with [place] [facility] Continue Sertraline and Bupropion Continue Remeron Nonocclusive Coronary Artery Disease | HLD -Follows with [facility] Cardiology Dr. Lou Resume ASA 81mg when okay with surgery Continue Statin #JOSUÉ - continue CPAP Thank you for allowing us to participate in the care of this patient, please reach out with any questions or concerns. Hospital Medicine will continue to follow. Supervising Physician Co-Signing Physician Notes As noted above, this is a medical consult for medical management of chronic conidtions. During face to face encounter, I obtained a history and physical examination, discussed plan of care with patient and answered any questions. I discussed plan of care with BUNNY Phipps. I reviewed above note and agree with it except for the following: For blood pressure, wlll resume amlodipine to manage hypertension. Hold ARB and diuretics resume meds for anxiety and depression History of Present Illness Reason for Consultation: medical management Requesting Physician: Dr. Douglas Attending Physician: Oswald Douglas MD History of Present Illness Nathanael is a 69M with a PMHx of HLD, anxiety/depression, HTN, JOSUÉ, CAD and PTSD who presents to the surgery for elective back surgery with Dr. Douglas. Patient seen postoperatively in room 321. Complaining of pain in lower back at surgical site. Last BM was yesterday. not passing gas yet. Allergies Allergy/AdvReac Type Severity Reaction Status Date / Time oxycodone AdvReac Severe anger Verified 04/04/25 10:59 hydrocodone AdvReac Intermediate anger Verified 04/04/25 10:59 NEOPRENE Allergy Intermediate Rash, Uncoded 04/03/25 11:37 irritation Home Medications Medication Instructions Recorded Confirmed Type atorvastatin 10 mg tablet 10 mg PO BID 09/13/19 05/13/25 History prednisolone acetate 1 % eye 2 drp ophthalmic (eye) QAM 08/04/20 05/13/25 History drops,suspension B-complex with vitamin C 1 cap PO QAM 01/12/22 05/13/25 History bupropion HCl 150 mg tablet,12 hr 300 mg PO QAM 11/09/23 05/13/25 History sustained-release amlodipine 10 mg tablet 10 mg PO QAM 02/27/24 05/13/25 History aspirin 81 mg tablet,delayed 81 mg PO UD 02/27/24 05/13/25 History release (Cecy Low Dose Aspirin) sertraline 100 mg tablet 150 mg PO QAM 02/27/24 05/13/25 History lisinopril 10 1 tab PO QAM 03/25/25 05/13/25 History mg-hydrochlorothiazide 12.5 mg tablet mirtazapine 15 mg tablet 7.5 mg PO HS 03/25/25 05/13/25 History pantoprazole 40 mg tablet,delayed See Rx Instructions .Route 04/28/25 05/13/25 Rx release .COMPLEX #60 tabs tamsulosin 0.4 mg capsule 0.4 mg PO QAM #90 caps 05/07/25 05/13/25 Rx acetaminophen 500 mg tablet 1,000 mg (2 x 500 mg) PO Q8H PRN 05/14/25 Rx (Tylenol Extra Strength) #0 tabs walker #1 ea 05/14/25 Rx tramadol 50 mg tablet 50 mg PO Q6H PRN pain #18 tabs 05/16/25 Rx Patient History Medical History Lumbar stenosis with neurogenic claudication s/p Lumbar decompression, medial facetectomy and foraminotomy L4-L5, L5-S1. Posterior spinal fusion L4-L5, L5-S1d. Placement of posterior segmental instrumentation using Orthros rods and screws L4-L5, L5-S1. Interbody fusion L5-S1. Placement of PEEK cage L5-S1 on 02/08/[address] Yoni Anaya. Hx of spinal stenosis lumbar Retrolisthesis of vertebrae hx; L3-4 Dream enactment behavior hx; per records "Sleep study 03/19/2019 - NOted corrected JOSUÉ with CPAP. Evidence of REM without atonia consistent with REM behavior d/o. Recommended CPAP 10cm H20 and possible clonazepam for REM behavior d/o." Solitary thyroid nodule 9mm complex cyst biopsied 11/29/2007, aspirate consistent with colloid nodule. Psoriasis Osteoarthritis Chronic lumbar pain Hyperlipidemia HTN (hypertension) controlled, stable per pt Hearing loss bilat. hearing aids Fuchs' corneal dystrophy s/p Phacoemulsification cataract extraction with intraocular lens placement and Descemet stripping automated endothelial keratoplasty, right eye on 06/29/2015. Depression Cervical pain (neck) limited ROM L/R BPH (benign prostatic hyperplasia) Aortic root dilatation Per 12/08/21 ECHO- aortic root and proximal ascending aorta are moderately enlarged at 4.5 and 4.7cm, respectively being monitored by [facility]. Anxiety Sleep apnea CPAP, uses nightly SOBOE (shortness of breath on exertion) chronic, occasional, denies change or worsening CKD (chronic kidney disease), stage III Obesity CAD (coronary artery disease) Minimal nonobstructive coronary artery disease 20-30% mid LAD disease per 11/2019 cardiac cath; [place] [facility] History of esophageal reflux controlled, stable per pt Seborrheic keratosis PTSD (post-traumatic stress disorder) Surgical History (Updated 05/16/25 @ 09:27 by Marce Schaffer PA-C) History of esophagogastroduodenoscopy (EGD) History of left knee replacement Hx of colonoscopy Hx of shoulder surgery RT RCR History of total knee replacement RT. 02/09/2021: SAB at L3 x 3 attempts + PNB. No postop issues per anesthesia progress note. History of tooth extraction History of cataract surgery RT/LEFT History of corneal transplant RT/LEFT History of cardiac cath 11/2019- nonobstructive disease, 20 to 30% mid LAD disease; f/u keli lou cardio History of surgery anal fistulectomy History of tonsillectomy History of sinus surgery History of knee surgery LEFT X 2 Right arthroscopy 08/13/2020: LMA#4. History of hemorrhoidectomy History of back surgery s/p Lumbar decompression, medial facetectomy and foraminotomy L4-L5, L5-S1. Posterior spinal fusion L4-L5, L5-S1d. Placement of posterior segmental instrumentation using Orthros rods and screws L4-L5, L5-S1. Interbody fusion L5-S1. Placement of PEEK cage L5-S1 on 02/08/[address] Yoni Anaya. Family History Mother Diabetes Myocardial infarction Brother Myocardial infarction Diabetes Other ASCVD (arteriosclerotic cardiovascular disease) No family history of adverse response to anesthesia Denies family history of Ovarian cancer Prostate cancer Breast cancer Lung cancer Colorectal cancer Social History Smoking Status: Former smoker Tobacco Type: Smokeless Tobacco (Dip or Chew) Smoking End Date: many years ago; Second Hand Exposure: No; Do You Dip or Chew Tobacco: Yes (advised); Tobacco Cessation Education Requested by Patient: No Hx Alcohol Use: Yes Alcohol type: beer Alcohol Intake Frequency Comment: once every 1-2 weeks Hx Substance Use: No Preferred Language: Bruneian Communication Ability: Effective Visual Impairment: Diminished Hearing Ability: Use of Hearing Aid Shape Carver Required: No Beliefs That Will Affect Care: None marital status: Current Living Situation: Spouse and Family current occupational status: retired How many Children do You have: 3 Other Information That Helps Us Care for You: No Feels Safe at Home: Yes Safety Concerns: Feels Safe At This Time Childhood Exposure to Second-Hand Smoke: No Diet: regular caffeine: Yes during the past year weight has: remained stable Dental Care, Regularly: Yes Physical Activity Frequency: 3-4 Times per Week Seatbelt Use: always Sunscreen Use: No Gender Identity: Male Assistive Devices: Cane Review of Systems Review of Systems: All systems reviewed & are unremarkable except as noted in Subjective Physical Exam Physical Exam: General: NAD, VS as above, appears uncomfortable Resp: normal respiratory effort, lungs diminished, weaned down to 1L NC CV: RRR, no murmur, Abd: hypoactive bowel sounds , non tender, Extremities: Moves all extremities, SCDs in place, able to wiggle toes bilaterally Neuro: A&O x3, Results & Data Results & Data Vital Signs (Past 12 Hours) Vital Signs Temp Pulse Pulse Resp BP Pulse Ox O2 Del Method 05/13/25 15:58 97.5 F L 68 16 119/67 97 Nasal Cannula 05/13/25 15:50 97.5 F L 68 16 119/67 97 Nasal Cannula 05/13/25 15:35 97.3 F L 70 14 127/63 94 Nasal Cannula 05/13/25 15:25 71 18 108/77 97 Nasal Cannula 05/13/25 15:15 73 14 124/66 94 Nasal Cannula 05/13/25 15:05 72 14 108/77 95 Nasal Cannula 05/13/25 14:55 76 10 L 140/61 96 Nasal Cannula 05/13/25 14:45 74 19 116/60 95 Oxymask 05/13/25 14:35 63 13 102/52 L 95 Oxymask 05/13/25 14:25 63 14 105/56 L 95 Oxymask 05/13/25 14:19 96.8 F L 67 16 108/55 L 95 Oxymask 05/13/25 06:08 98.6 F 55 L 19 135/76 97 Room Air O2 Flow Rate 05/13/25 15:58 2 05/13/25 15:50 05/13/25 15:35 2 05/13/25 15:25 2 05/13/25 15:15 2 05/13/25 15:05 2 05/13/25 14:55 4 05/13/25 14:45 4 05/13/25 14:35 4 05/13/25 14:25 10 05/13/25 14:19 10 05/13/25 06:08 PG Care Time/CCT Total # of Minutes Spent Total Time Spent with Patient: Total time spent is greater than 50% in coordination of care (as documented) at patient's floor/unit and/or counseling patient: Coding Level of Care Code 14589 IN/OBS CONSULT LVL 3,45M Diagnoses Lumbar stenosis with neurogenic claudication M48.062 HTN (hypertension) I10 Hyperlipidemia E78.5 Anxiety F41.9
--- NOTE | 2025-05-13 16:43 | Operative Report ---
PG Post Operative Report Pre & Post Diagnosis Operation Date: 05/13/25 07:30 Pre-Op Diagnosis: Retrolisthesis of Vertebrae Post-Op Diagnosis: Retrolisthesis of Vertebrae I identified the patient and participated in the time-out.: Yes Procedure Operation Date: 05/13/25 07:30 Actual Procedures p L3-L4 Lateral Lumbar Interbody Fusion, L3-L4 Posterior Fusion Instrumentation, Decompression, , L4-L5, L5-S1 Evaluation and Fusion, Spinal Cord Monitoring(Not Applicable) - Oswald Douglas MD s L4, L5, S1 Removal Hardware(Not Applicable) - Oswald Douglas MD Surgeon Oswald Douglas MD Manufacturing Tech none Estimated Blood Loss 150 Findings Consistent with Post-Op Diagnosis Specimens none Description of Procedure 1. L3-4 right lateral interbody arthrodesis. (08377) 2. L3-4 right lateral interbody cage, NuVasive cohere XL 12 x 18 x 55 mm lordotic. (53481) 3. L3-4 posterior arthrodesis. (89848) 4. L3-4 posterior nonsegmental instrumentation, NuVasive reline. (61536) 5. Removal of posterior segmental instrumentation L4-5S1. (77590) 6. Inspection of arthrodesis L4-5, L5-S1. (00393) Patient taken the operating room after adequate esthesia was carefully positioned in the left lateral decubitus position right side up for a right- sided approach to the L3-4 level. The patient was secured to the table routine fashion fluoroscopy was brought in and aided in positioning the patient, the patient underwent a preprepped, and I marked for the approximate location of the incision followed by prep and drape. A transverse incision was made just over the iliac crest on the right side, and through this I advanced down through the subcutaneous tissues into the retroperitoneal area without any issue. Once docking on the lateral aspect midpoint at L3-4, monitoring was utilized to confirm the location along fluoroscopy, I inserted a guidewire followed by then the additional dilators and access apparatus without issue. The area was visualized with the access apparatus, and inspected with the monitoring probe, the sanjuana was then set. After checking the positioning with fluoroscopy, I began the procedure with a lateral incision in the L3-4 disc space followed by a thorough discectomy. A variety of different instruments including tejinder and ring curettes and other instruments were used to remove the disc material and remove cartilage from the endplates. Upon completion, I then went through trial selecting the size cage as noted above, this was packed with fusion materials and some additional fusion materials were placed within the disc space, and I tapped this into position with excellent position on AP and lateral views. Final images were obtained, I then applied vancomycin powder and closed with interrupted 0 and 2-0 Vicryl sutures and chelly for the skin, sterile dressing was applied. The patient was then repositioned prone on the Tristen frame and carefully checked for positioning and after doing so fluoroscopy was brought in where I marked for the approximate location of the incision which incorporated a portion of the prior incision midline, prep and drape was performed. Midline incision was then made through the subcutaneous tissues and through the scar tissue and then advanced down to the remaining spinous processes superiorly and then out laterally to the hardware. A significant amount of time was then spent exposing the hardware removing some bone covering some regions of the hardware using a variety of instruments. I then remove the setscrews and then was able to mobilize and remove the rods. Distraction did not reveal any evidence of pseudoarthrosis, I then proceeded with removal of the remaining pedicle screws, this was the camber system. Fluoroscopy was brought in, I made the start point for the pedicle screws at the L3 level followed by insertion of gearshift probe and using monitoring fluoroscopy I advanced these into the vertebral body followed by tap, monitoring, insertion of 6.5 millimeter screws from the NuVasive set 15 mm in length at L3, and then positioned new hardware at L4 completing the construct. Due to the amount of distraction achieved with the interbody cage, I withheld on the formal decompression, I then placed fusion materials posteriorly in the facet regions, the rods were inserted and the screws were torqued down properly. Final images were obtained, vancomycin powder was placed, 0 Vicryl sutures into layers were placed followed by 2-0 Vicryl sutures and chelly for the skin. Sterile dressing was applied, the patient tolerated procedure well was taken recovery room in satisfactory condition. I attest to the content of the Intraoperative Record and any orders documented therein. Any exceptions are noted below.
[2025-05-13] MEDS: ACETAMINOPHEN 1,000 MG/100 ML VIAL IV PRN (16:55)
[2025-05-13] MEDS: DOCUSATE SODIUM/SENNA 50/8.6MG TAB PO SCH (20:49)
[2025-05-13] MEDS: PANTOprazole 40 MG TAB PO SCH (20:50)
[2025-05-13] MEDS: MIRTAZAPINE TAB 15 MG TAB PO SCH (20:50)
[2025-05-14] MEDS: POLYETHYLENE (MIRALAX) 17 GM PACK PO SCH (05:29)
[2025-05-14 06:02] LABS: Hematocrit (blood only) 34.9 % (42.0-52.0); Hemoglobin 11.5 g/dl (14.0-18.0); Mean Corpuscular Hemoglobin 30.2 pg (25.0-34.0); Mean Corpuscular Volume 91.6 fL (80.0-100.0); Mean Platelet Volume 11.2 fL (9.4-12.4); Platelet Count 187 K/uL (130-400); RDW Standard Deviation 47.8 fL (36.4-46.3); Red Blood Count 3.81 M/uL (4.70-6.10); White Blood Count 13.24 K/ul (4.8-10.8)
[2025-05-14 06:23] LABS: BUN Creatinine Ratio 13.3 (10-20); Calcium 8.6 mg/dl (8.6-10.3); Creatinine Clr Calc Pharmacy 77.2 ml/min; Potassium 3.8 mmol/L (3.5-5.1)
[2025-05-14] MEDS: HYDROCODONE/ACETAMOPHEN 5/325MG TAB PO PRN (07:43)
--- NOTE | 2025-05-14 08:30 | Orthopedic Progress Note ---
Date of Service May 14, 2025 Assessment & Plan (1) Retrolisthesis of vertebrae: * Continue Current Treatment * Disposition: TBD * Daily treatment: Physical Therapy/ Occupational Therapy per protocol * Weight bearing status: WBAT * Continue to monitor for ABLA * Pain control * DVT prophylaxis, ASA/E * Office/hospital f/u 2 weeks for progress check and staple/suture removal * Plan for discharge today/tomorrow pending PT/OT clearance and pain control Subjective .Active Problems: S/p L3-4 fusion, removal hardware L4-S1 69 y/o male s/p L3-4 fusion, removal hardware L4-S1. Doing well overall, pain managed and improved function, pain improved overnight but still significant. Denies tingling or numbness of bilateral lower extremity. Denies fever/chills, chest pain/SOB, nausea/vomiting. Otherwise no complaints. Patient seen and examined, will mobilize with physical therapy, pain medications. Review of Systems All systems reviewed & are unremarkable except as noted in HPI & below. Physical Exam .General: Alert and oriented, no acute distress * Constitutional: well-developed, well-nourished. * Respiratory: Normal respiratory effort, no distress * Gastrointestinal: No tenderness to palpation, no rigidity or guarding. * Skin: No rash or lesion. * Neurologic: Grossly normal * Musculoskeletal: Surgical dressing with mild bloody drainage, appears dry overnight. Otherwise lumbar spine region without obvious deformity or overlying skin changes. Minimal tenderness of surgical region and right proximal thigh, otherwise no specific tenderness b/l buttock or LE. Lumbar flexion/extension and rotation ROM with minimal pain. AROM b/l hip flexion, knee flexion/extension, ankle flexion/extension intact. R hip flexion 4+/5 secondary to pain, otherwise b/l LE strength 5/5. Sensation intact plantar/dorsal foot. Brisk capillary refill. Results & Data Results & Data Laboratory Results . Diagnostic Findings . PG Care Time/CCT Total # of Minutes Spent Total Time Spent with Patient: Total time spent is greater than 50% in coordination of care (as documented) at patient's floor/unit and/or counseling patient: Coding Level of Care Code 65539 Post Operative Follow-Up Diagnoses Retrolisthesis of vertebrae M43.10
[2025-05-14] MEDS: SERTRALINE HCL 50 MG TABLET PO SCH (08:47)
[2025-05-14] MEDS: buPROPion SR 150 MG TABCR PO SCH (08:47)
[2025-05-14] MEDS: TAMSULOSIN HCL 0.4 MG CAP PO SCH (08:47)
[2025-05-14] MEDS: amLODIPine BESYLATE 5 MG TAB PO SCH (08:47)
[2025-05-14] MEDS: prednisoLONE acetate 1% OP SUSP 5 ML BTL OP SCH (08:48)
--- NOTE | 2025-05-14 16:06 | Hospitalist Progress Note ---
Date of Service May 14, 2025 Assessment & Plan (1) Lumbar stenosis with neurogenic claudication: (2) HTN (hypertension): (3) Hyperlipidemia: (4) Anxiety: Plan Nathanael is a 69M with a PMHx of HLD, anxiety/depression, HTN, JOSUÉ, CAD and PTSD who presents to the surgery for elective back surgery with Dr. Douglas. Hospital Medicine team consulted for "surgery" #Neurogenic claudication S/P L3-L4 Lateral Lumbar Interbody Fusion, L3-L4 Posterior Fusion Ins trumentation, Decompression. L4-L5, L5-S1 Evaluation and Fusion with Dr. Douglas 05/13 pain control / dvt proh/ abx/ dispo planning per primary team EBL: 150 Leukocytosis likely reactive to surgery. Hgb 14.4 --> 11.5 suspect acute blood loss anemia vs dilutional PT/OT #HTN Continue Amlodipine Lisinopril-HCTZ held today due to low/normal BP likely from narcotics. Okay to resume 05/15 #Anxiety/PTSD/Depression - Follows with [place] [facility] Continue Sertraline and Bupropion Continue Remeron Nonocclusive Coronary Artery Disease | HLD -Follows with [facility] Cardiology Dr. Lou Resume ASA 81mg when okay with surgery Continue Statin #JOSUÉ - continue CPAP Thank you for allowing us to participate in the care of this patient, please reach out with any questions or concerns. Hospital Medicine will sign off. Admission and Anticipated Discharge Date Admission Date: May 13, 2025 Subjective Seen sitting up in the chair - pain much more controlled today passing gas no longer on oxygen no acute complaints Review of Systems Review of Systems: All systems reviewed & are unremarkable except as noted in Subjective Physical Exam Physical Exam: General: NAD, VS as above, appears uncomfortable Resp: normal respiratory effort, lungs CTA CV: RRR, no murmur, Abd: + bowel sounds , non tender, Extremities: Moves all extremities, Neuro: A&O x3, Results & Data Results & Data Vital Signs (Past 12 Hours) Vital Signs Temp Pulse Resp BP BP Pulse Ox O2 Del Method 05/14/25 14:46 97.9 F 63 16 124/73 95 Room Air 05/14/25 10:52 97.5 F L 61 16 120/60 96 Room Air 05/14/25 06:58 97.7 F 60 16 125/64 95 Room Air Laboratory Results cbc and chemistry reviewed PG Care Time/CCT Total # of Minutes Spent Total Time Spent with Patient: Total time spent is greater than 50% in coordination of care (as documented) at patient's floor/unit and/or counseling patient: Coding Level of Care Code 36416 SUB INP/OBS CARE 2/35MIN Diagnoses Lumbar stenosis with neurogenic claudication M48.062 HTN (hypertension) I10 Hyperlipidemia E78.5 Anxiety F41.9
[2025-05-14] MEDS: HYDROmorphone INJ 0.5 MG/0.5 ML SYR IV PRN (20:09)
[2025-05-15] MEDS ORDERED: oxyCODONE HCL IR 5 MG TAB (IMMEDIATE RELEASE) PO PRN ×2 (08:19→08:20)
[2025-05-15] MEDS ORDERED: NO NSAIDS SCH (08:30)
--- NOTE | 2025-05-15 08:59 | Orthopedic Progress Note ---
Date of Service May 15, 2025 Assessment & Plan (1) Retrolisthesis of vertebrae: * Continue Current Treatment * Disposition: TBD * Daily treatment: Physical Therapy/ Occupational Therapy per protocol * Weight bearing status: WBAT * Continue to monitor for ABLA * Pain control, medication adjusted * No NSIADs * Office/hospital f/u 2 weeks for progress check and staple/suture removal * Plan for discharge today/tomorrow pending PT/OT clearance and pain control Patient seen and examined, has primarily low back pain some limited right thigh symptoms. Will change medication to oxycodone, this was discussed with the patient, continue with therapy and see how the patient does today with either possible discharge later today depending on how he does with physical therapy and/or tomorrow. Subjective . .Active Problems: S/p L3-4 fusion, removal hardware L4-S1 69 y/o male s/p L3-4 fusion, removal hardware L4-S1. Persistent low back pain overnight, but did well with PT yesterday. Denies tingling or numbness of bilateral lower extremity. Denies fever/chills, chest pain/SOB, nausea/vomiting. Otherwise no complaints. Review of Systems All systems reviewed & are unremarkable except as noted in HPI & below. Physical Exam .General: Alert and oriented, no acute distress * Constitutional: well-developed, well-nourished. * Respiratory: Normal respiratory effort, no distress * Gastrointestinal: No tenderness to palpation, no rigidity or guarding. * Skin: No rash or lesion. * Neurologic: Grossly normal * Musculoskeletal: Surgical dressing with mild bloody drainage, appears dry overnight. Otherwise lumbar spine region without obvious deformity or overlying skin changes. Minimal tenderness of surgical region and right proximal thigh, otherwise no specific tenderness b/l buttock or LE. Lumbar flexion/extension and rotation ROM with minimal pain. AROM b/l hip flexion, knee flexion/extension, ankle flexion/extension intact. R hip flexion 4+/5 secondary to pain, otherwise b/l LE strength 5/5. Sensation intact plantar/dorsal foot. Brisk capillary refill. Results & Data Results & Data Laboratory Results . Diagnostic Findings . PG Care Time/CCT Total # of Minutes Spent Total Time Spent with Patient: Total time spent is greater than 50% in coordination of care (as documented) at patient's floor/unit and/or counseling patient: Coding Level of Care Code 42611 Post Operative Follow-Up Diagnoses Retrolisthesis of vertebrae M43.10
[2025-05-15] MEDS: LISINOPRIL/HCTZ 10/12.5MG TAB PO SCH (11:17)
[2025-05-15] MEDS: ACETAMINOPHEN 500 MG TAB PO SCH (11:17)
[2025-05-15] MEDS: oxyCODONE HCL IR 5 MG TAB (IMMEDIATE RELEASE) PO PRN ×2 (12:47→21:29)
[2025-05-16 08:04] VITALS: BP 146/77; PULSE 69; RESP 16; TEMP 99.1; O2SAT 93
--- NOTE | 2025-05-16 09:29 | Orthopedic Progress Note ---
Date of Service May 16, 2025 Assessment & Plan (1) S/P lumbar fusion: POD 3 lumbar decompression and fusion - Patient has been improving with his pain as well as his function during his recovery in the hospital - Can continue home medications as originally prescribed - Disposition: Discharge pending case management eval and after breakfast - Will begin case management as the patient states that he is not going to have limited help at home [place]. He would like to know if he can have any home health/home PT for the weekend. - Follow-up with Dr. Douglas in 2 weeks (2) Retrolisthesis of vertebrae: (3) Low back pain radiating to both legs: Subjective Operation Date: 05/13/25 07:30 Actual Procedures p L3-L4 Lateral Lumbar Interbody Fusion, L3-L4 Posterior Fusion Instrumentation, Decompression, , L4-L5, L5-S1 Evaluation and Fusion, Spinal Cord Monitoring(Not Applicable) - Oswald Douglas MD s L4, L5, S1 Removal Hardware(Not Applicable) - Oswald Douglas MD Patient is postop day 3 from a lumbar decompression and fusion. He states his pain is significantly improved. He is resting comfortably in his hospital bed today. He would like to know when he can leave at today's visit. Does have some concerns about when he goes home. States that he does have some family that is around, however his is [place] the beach. He would like to know if he can have any home health for the weekend. No other questions or concerns today. Review of Systems All systems reviewed & are unremarkable except as noted in HPI & below. Physical Exam General: Alert and oriented. In no acute distress. Lumbar spine: Wound check satisfactory. No saturation of the dressing. No erythema or edema. No open wounds. He has good strength of bilateral lower extremities. He is neurovascularly intact. Results & Data Results & Data Laboratory Results . Diagnostic Findings . PG Care Time/CCT Total # of Minutes Spent Total Time Spent with Patient: Total time spent is greater than 50% in coordination of care (as documented) at patient's floor/unit and/or counseling patient: Coding Level of Care Code 27238 Post Operative Follow-Up Diagnoses S/P lumbar fusion Z98.1 Retrolisthesis of vertebrae M43.10 Low back pain radiating to both legs M54.50; M79.604; M79.605
--- NOTE | 2025-05-26 09:21 | Discharge Summary ---
Date of Service May 26, 2025 Admission HPI (Per Admitting) Low back pain, leg pain, adjacent segment degeneration. Principal Diagnosis Same as "Discharge Diagnosis" noted below under Discharge Instructions. Discharge Exam General: Alert and oriented. In no acute distress. Lumbar spine: Wound check satisfactory. No saturation of the dressing. No erythema or edema. No open wounds. He has good strength of bilateral lower extremities. He is neurovascularly intact. Discharge Data Consultations 05/13/25 14:25 Consult Hospitalist Routine Procedures Performed Operation Date: 05/13/25 07:30 Actual Procedures p L3-L4 Lateral Lumbar Interbody Fusion, L3-L4 Posterior Fusion Instrumentation, Decompression, , L4-L5, L5-S1 Evaluation and Fusion, Spinal Cord Monitoring(Not Applicable) - Oswald Douglas MD s L4, L5, S1 Removal Hardware(Not Applicable) - Oswald Douglas MD Ordered Studies 05/13/25 07:30 FL lumbar spine 2-3V Routine Hospital Course (1) Adjacent segment disease of lumbar spine with history of fusion procedure: (2) Retrolisthesis of vertebrae: (3) S/P lumbar fusion: PG Care Time/CCT Total # of Minutes Spent Total Time Spent with Patient: Total time spent is greater than 50% in coordination of care (as documented) at patient's floor/unit and/or counseling patient: Discharge Plan Discharge Items Patient Disposition: Home - Self-Care Reason For Visit: Retrolisthesis of Vertebrae, Low Back Pain Radiati Discharge Diagnosis: s/p lateral lumbar fusion, revision posterior instrumentation Activity: Per Instructions section Lifting: No more than 10 pounds Bathing: May shower/bathe in 3 days Weightbearing: Full weightbearing Non-emergency contact: Surgeon Call non-emergency contact if: your pain is worsening, your temperature is above 101, your wound has increased redness and your wound has increased drainage Follow-up/Referrals: Oswald Douglas MD [Surgeon] - (05/26/25 @ 11:30) Mohamud Ryan DO [Primary Care Provider] - Diet: Regular Addtl Attending Provider Instructions: May shower on 3rd day after surgery. You can wash the incision and surgical site with soap and water briefly and then blot dry with a clean towel/cloth. Cover with a new, sterile dry dressing. If unable to change your dressing, then leave hospital dressing intact and cover the area for showering. Do NOT soak incision. No strenuous activity, lifting, or exercise until further instructed. Use the prescribed pain medication, or [id number] Tylenol, as needed for pain relief -- follow directions on the bottle; limit Tylenol to 4,000 mg maximum in a 24-hour period. No use of NSAIDs (i.e ibuprofen/Advil/Motrin, naproxen/Aleve, etc.) for at least 2 months after surgery. Pending Studies at Discharge: No Stand-Alone Forms: My [facility], Smoking Cessation Medications and DC Order Prescriptions: New (CIERA) maci [facility] [place] See Rx Instructions .Route Qty: 1 0RF Rx Instructions: As directed acetaminophen [Tylenol Extra Strength] 500 mg Tablet 1,000 mg PO Q8H PRNQty: 0 0RF tramadol 50 mg tablet 50 mg PO Q6H PRN (Reason: pain) Qty: 18 0RF Rx Instructions: initial therapy Continued atorvastatin 10 mg tablet 10 mg PO BID pantoprazole 40 mg tablet,delayed release (DR/EC) See Rx Instructions .ROUTE .COMPLEX Qty: 60 6RF Dose Instruction: TAKE 1 TABLET BY MOUTH TWICE A DAY Rx Instructions: TAKE 1 TABLET BY MOUTH TWICE A DAY tamsulosin 0.4 mg capsule 0.4 mg PO QAM Qty: 90 3RF amlodipine 10 mg tablet 10 mg PO QAM aspirin [Cecy Low Dose Aspirin] 81 mg tablet,delayed release (DR/EC) 81 mg PO UD Rx Instructions: Take to prevent blood clots. Take PO every Monday, Monday, , and Monday B-complex with vitamin C Capsule 1 cap PO QAM prednisolone acetate 1 % drops,suspension 2 drp ophthalmic (eye) QAM Rx Instructions: 1 DROP TO BOTH EYES EVERYDAY bupropion HCl 150 mg tablet sustained-release 12 hr 300 mg PO QAM Rx Instructions: TAKE 1 TABLET BY MOUTH EVERYDAY FOR DEPRESSION sertraline 100 mg tablet 150 mg PO QAM Rx Instructions: TAKE 2 TABLETS BY MOUTH EVERY DAY FOR PTSD mirtazapine 15 mg Tablet 7.5 mg PO HS lisinopril-hydrochlorothiazide 10-12.5 mg tablet 1 tab PO QAM Rx Instructions: TAKE 1 TABLET BY MOUTH EVERY DAY Discharge Orders: Discharge Order (Routine); Ordered 05/16/25 Ordered By: Marce Chino/Other Patient Handouts: Post-Op Tips: Back Admission Data Admit Date/Time: 05/13/25 14:20 Attending Provider: Oswald Douglas Admit Provider: Oswald Douglas Primary Care Provider: Mohamud Ryan Other Providers: Mario Ellis; [facility] Other Interventions: Discharge Summary Assessment (RN) Last Done: 05/16/25 09:20
== END 2025-05-16 10:54 | disposition home or self-care (01) | DRG 402 ==
LOC: 3E 05:46 → ASU 05:46 → INTOOBSV 14:20 → OBSVTOIN 14:20